=== PATIENT | female | born 1965 | race Caucasian/White ===

== ENCOUNTER 2016-08-09 06:56 | Day surgery (SDC) | payer MEDICARE, MEDICAID ==
[2016-05-09 11:45] VITALS: BMI 25.5
[2016-08-09] MEDS ORDERED: EPINEPHrine 1:1000 Nasal Sol(30mL) ONE (07:44)
[2016-08-09] MEDS ORDERED: cefOXitin IV 1 gm in Dextrose 0 GM/0 ML BAG IVPB ONE (07:45)
[2016-08-09] MEDS ORDERED: Lidocaine 2% w Epi 1:100,000 Inj IJ ONE (07:45)
[2016-08-09] MEDS ORDERED: Acetaminophen-Codeine 300/30 mg Tab PO PRN (08:32)
[2016-08-09] MEDS ORDERED: Dextrose 5%/0.45% NS 1,000 ML IV SCH (08:45)
[2016-08-09] MEDS ORDERED: Midazolam 2 MG/2 ML VIAL ONE (08:45)
[2016-08-09] MEDS ORDERED: Propofol 10 mg/ml Inj (20 ML) ONE (08:45)
[2016-08-09] MEDS ORDERED: Lactated Ringer's 1,000 ML IV ONE (08:55)
[2016-08-09] MEDS ORDERED: ceFAZolin IV 1 gm in Dextrose 1 GM/50 ML BAG IVPB ONE (09:08)
[2016-08-09] MEDS ORDERED: Neostigmine Methylsulfate 3mg/3ml Syringe IV ONE (10:04)
[2016-08-09] MEDS ORDERED: Lidocaine 4% (Laryng-O-Jet) Kit MM ONE (10:08)
--- NOTE | 2016-08-09 10:32 | OP ---
PROCEDURE DATE: 08/09/2016 PREOPERATIVE DIAGNOSIS: Sinusitis. POSTOPERATIVE DIAGNOSIS: Sinusitis. PROCEDURE: Endoscopic right maxillary antrostomy, endoscopic bilateral ethmoidectomy, endoscopic malou ateral sphenoidotomy, endoscopic bilateral frontal sinusotomy. DESCRIPTION OF PROCEDURE: The patient was brought in the room, placed in supine position. Anesthesi a was initiated through an ET tube. Adrenaline-soaked pledgets were inserted in the nasal cavity and remained there for at least 5 minutes and removed. Navigation was set up and used throughout the ca se in order to ensure that the skull base and orbit were not entered. The patient was draped in the usual manner. A 0-degree scope was inserted in the left nasal cavity. The middle turbinate was inje cted with lidocaine with epinephrine and medialized. The uncinate process was medialized and removed using forceps. The debrider was used to enter the ethmoid bulla inferomedially going posteriorly to the basal lamella, then anteriorly and superiorly until the ethmoid bulla was removed. The basal la jimenez was entered. Posterior ethmoid cells were entered and opened. Skull base was identified and f ollowed anteriorly all the way to the area of the anterior ethmoid air cells. The frontal recess was noted to be stenosed and opened using forceps. The left maxillary antrum was noted to be patent. T herefore, it did not need to be opened. The middle turbinate was lateralized. Polyps were noted blo cking the sphenoid antrum, which were removed using a debrider. Next, straight suction hooked up to navigation was used to locate the sphenoid antrum. This was then enlarged using forceps. Next, attention was turned to the other side. The middle turbinate was injected with lidocaine with epinephrine and medialized. The uncinate process was medialized using a Breeding elevator and removed u sing forceps. A debrider was used to enter the ethmoid bulla inferomedially going posteriorly to the basal lamella, then anteriorly and superiorly until the ethmoid bulla was removed. Basal lamella wa s entered. Posterior ethmoid cells were entered and opened. Skull base was identified and followed anteriorly all the way to the area of the anterior ethmoid air cells. Frontal recess was noted to be stenosed and opened using forceps. A curved suction was used to locate the maxillary antrum, which was noted to be blocked with polyps, which were removed using a debrider, and the curve suction hooke d up to navigation was used to locate the maxillary antrum again, and forceps used to make an antrost barbara. The middle turbinate was lateralized, and suction was used to locate the area of the sphenoid a ntrum, which was noted to be blocked with polyps, which were removed using a debrider and forceps. T he antrum was identified using a straight suction hooked up to navigation and opened using forceps. At that point, bleeding was controlled using adrenaline-soaked pledgets and suction cautery. Stents were placed. The patient was taken off anesthesia and taken to recovery room in stable manner. Dylan Galvez MD cc: [id number] TT: 08/09/2016 10:31:51 jn
[2016-08-09] MEDS ORDERED: HYDROmorphone 0.5 mg/0.5 ml ISec IVP PRN (10:39)
[2016-08-09] MEDS ORDERED: Lactated Ringer's 1,000 ML IV SCH (10:45)
[2016-08-09 12:11] VITALS: RESP 19; TEMP 98.3
[2016-08-09 13:48] VITALS: O2SAT 98
[2016-08-09 14:24] VITALS: BP 132/79; PULSE 75
== END 2016-08-09 14:15 | disposition home or self-care (01) ==
LOC: C.SDS 06:56
PROVIDERS: ATTEND Otolaryngology
DX: J32.0 Chronic maxillary sinusitis (principal); J32.2 Chronic ethmoidal sinusitis; J32.3 Chronic sphenoidal sinusitis; J32.9 Chronic sinusitis, unspecified
CPT/HCPCS: 31255; 31267; 31288; 82948; 88304; 88311; J0690; J2250; J2405; J2704; J2710; J3010; J7120

== ENCOUNTER 2016-09-03 17:44 | Inpatient (IN) | payer OTHER, MEDICAID ==
[2016-09-03 17:45] VITALS: BMI 25.5
[2016-09-03] MEDS ORDERED: Sodium Chloride 0.9% 1,000 ML IV ONE (19:55)
[2016-09-03] MEDS ORDERED: Sodium Chloride 0.9% 1,000 ML ONE (20:08)
[2016-09-03 20:09] LABS: BASO # 0.2 K/uL (0.0-0.2); BASO % 1.3 % (0.0-2.0); EOS # 0.3 K/uL (0.0-0.7); EOS % 2.7 % (0.0-4.0); HEMATOCRIT 43.8 % (34.0-47.0); LYMPH # 3.6 K/uL (1.0-4.3); LYMPH % 29.2 % (20.0-40.0); MEAN CELL VOLUME 84.2 fL (81.0-99.0); MEAN CORPUSCULAR HEMOGLOBIN 27.7 pg (27.0-31.0); MEAN CORPUSCULAR HGB CONC 32.9 g/dL (33.0-37.0); MEAN PLATELET VOLUME 9.8 fL (7.2-11.7); MONO # 0.6 K/uL (0.0-0.8); MONO % 4.7 % (0.0-10.0); RED CELL DISTRIBUTION WIDTH 13.1 % (11.5-14.5); WHITE BLOOD COUNT 12.3 K/uL (4.8-10.8)
[2016-09-03 20:21] LABS: CHLORIDE 94 mmol/L (98-107); SODIUM 133 mmol/L (132-148)
[2016-09-03 20:22] LABS: POTASSIUM 3.9 mmol/L (3.6-5.2)
[2016-09-03 20:24] LABS: ALB/GLOB RATIO 1.2 (1.0-2.1); ALKALINE PHOSPHATASE 97 U/L (38-126); AST/SGOT 13 U/L (14-36); BILIRUBIN,TOTAL 0.7 mg/dL (0.2-1.3); BLOOD UREA NITROGEN 17 mg/dL (7-17); CARBON DIOXIDE 26 mmol/L (22-30); GFR AFRICAN-AMERICAN > 60; TOTAL PROTEIN 7.3 g/dL (6.3-8.3)
[2016-09-03 20:25] LABS: ALT/SGPT 21 U/L (9-52); CALCIUM 9.4 mg/dl (8.6-10.4); GLUCOSE,RANDOM 361 mg/dL (65-105)
[2016-09-03] MEDS ORDERED: Piperacillin/Tazobact 3.375 gm 100 ML IVPB STA (21:48)
[2016-09-03] MEDS ORDERED: Piperacillin/Tazobact 3.375 gm 100 ML IVPB ONE (21:55)
[2016-09-03] MEDS ORDERED: Morphine 4 MG/ML VIAL ONE (21:55)
--- NOTE | 2016-09-03 21:59 | C.PDOC ---
History Of Present Illness Pt had surgery on her right foot this month. She states that foot started getting red and painful with pus drainage 2 days ago. Time Seen by Provider: 09/03/16 19:47 Chief Complaint (Nursing): Abnormal Skin Integrity History Per: Patient Onset/Duration Of Symptoms: Days (2) Current Symptoms Are (Timing): Still Present Location Of Injury: Right: Foot Quality Of Symptoms: Painful, Swollen, Draining Severity: Moderate Additional History Per: Prior Records Past Medical History Reviewed: Historical Data, Nursing Documentation, Vital Signs Vital Signs: Last Vital Signs Temp 98.4 F 09/03/16 18:22 Pulse 102 H 09/03/16 18:22 Resp 18 09/03/16 18:22 BP 115/79 09/03/16 18:22 Pulse Ox 100 09/03/16 22:02 - Medical History PMH: Anxiety, Arthritis (right foot 1st digit), Asthma ("MILD INTERMITTENT ASTHMA,UNCOMPLICATED"), Back Problems, Bipolar Disorder, Depression, Diabetes ( Poorly controlled), HTN, Hypercholesterolemia, Schizophrenia, Seizures (last one 07/2015), TIA (05/2012, 02/2015) Surgical History: Appendectomy (34 years ago) - [facility] Procedures INSERT OF MONITOR DEV INTO CHEST SUBCU/FASCIA, PERC APPROACH (02/23/15) Family History: States: Unknown Family Hx - Social History Hx Tobacco Use: Yes (heavy smoker) Hx Alcohol Use: No Hx Substance Use: No - Immunization History Hx Tetanus Toxoid Vaccination: Yes (2014) Hx Influenza Vaccination: Yes (2015) Hx Pneumococcal Vaccination: Yes (2015) Review Of Systems Except As Marked, All Systems Reviewed And Found Negative. Constitutional: Negative for: Fever Cardiovascular: Negative for: Chest Pain Respiratory: Negative for: Shortness of Breath Gastrointestinal: Negative for: Vomiting, Abdominal Pain Musculoskeletal: Positive for: Foot Pain (right). Negative for: Neck Pain, Back Pain Neurological: Negative for: Weakness, Seizures Physical Exam - Physical Exam Appears: Non-toxic, No Acute Distress Skin: Warm, Dry Head: Atraumatic, Normacephalic Eye(s): bilateral: PERRL, EOMI Neck: Normal ROM, Supple Cardiovascular: Rhythm Regular Respiratory: Normal Breath Sounds, No Accessory Muscle Use Gastrointestinal/Abdominal: Soft, No Tenderness Back: No CVA Tenderness Extremity: Normal ROM, Tenderness (right foot), Other (Right foot surgical wound intact, but with surrounding erythema) Pulses: Right Dorsalis Pedis: Normal Neurological/Psych: Oriented x3, Normal Motor, Normal Sensation ED Course And Treatment - Laboratory Results Result Diagrams: 09/03/16 20:07 09/03/16 20:07 Lab Interpretation: Abnormal Interpretation Of Abnormal: Hyperglycemia. Elevated ESR/CRP. O2 Sat by Pulse Oximetry: 100 Pulse Ox Interpretation: Normal - Physician Consult Information Physician Contacted: Chaim Lieberman (Podiatry) Outcome Of Conversation: He wants pt to be admitted and receive Zosyn. Pt was also signed out to Podiatry resident Dr. Young. Disposition Discussed With : Mando Coates Comment: He accepted pt on his service and gave admitting orders to the nurse. Doctor Will See Patient In The: Hospital Counseled Patient/Family Regarding: Studies Performed, Diagnosis - Disposition Disposition: HOSPITALIZED Disposition Time: 22:10 Condition: FAIR - POA Present On Arrival: Poor Glycemic Control - Clinical Impression Clinical Impression: Uncontrolled diabetes mellitus, Status post right foot surgery, Right foot infection
[2016-09-03] MEDS ORDERED: Albuterol-Ipratrop 3 mg / 0.5 (3 ml) UD INH PRN (22:10)
[2016-09-03] MEDS ORDERED: Vancomycin 1 GM 1 GM/250 ML BAG IVPB ONE (22:38)
[2016-09-04] MEDS ORDERED: Oxycodone/Acetaminophen 5/325 mg Tab ONE (00:33)
[2016-09-04] MEDS: Oxycodone/Acetaminophen 5/325 mg Tab PO PRN ×2 (00:34→08:30)
[2016-09-04] MEDS ORDERED: Piperacillin/Tazobact 3.375 gm 100 ML IVPB STA (00:46)
[2016-09-04] MEDS ORDERED: (Novolog) Insulin Aspart, Recombinant 100 u/ml 10 ml vial SC STA (02:51)
[2016-09-04] MEDS: Piperacillin/Tazobact 3.375 GM in Sodium Chloride 100 ML IVPB SCH ×4 (04:16→21:25)
[2016-09-04 06:11] VITALS: RESP 20
[2016-09-04 08:09] LABS: CHLORIDE 103 mmol/L (98-107); POTASSIUM 3.7 mmol/L (3.6-5.2); SODIUM 136 mmol/L (132-148)
[2016-09-04 08:11] LABS: GFR AFRICAN-AMERICAN > 60
[2016-09-04 08:12] LABS: BLOOD UREA NITROGEN 15 mg/dL (7-17); CARBON DIOXIDE 24 mmol/L (22-30); GLUCOSE,RANDOM 349 mg/dL (65-105)
[2016-09-04 08:13] LABS: CALCIUM 8.8 mg/dl (8.6-10.4)
[2016-09-04] MEDS: (Novolog) Insulin Aspart, Recombinant 100 u/ml 10 ml vial SC SCH ×4 (08:32→21:25)
--- NOTE | 2016-09-04 11:51 | CP.PCM.CON ---
History of Present Illness - History of Present Illness History of Present Illness: This 50 year old female patient with PMHx of uncontrolled DM, HTN, and HLD seen at bedside as a podiatry consult. Patient is resting in bed comfortably and is AAOx3 and NAD. Patient is 1 week s/p right 1st met surgery with possible infection. Patient admits to feeling pain at her surgical site and states that she noticed her foot getting red 2 days ago. Patient denies smoking but admits to vaping with her e-cigarette. Patient admits that her blood sugar levels have been running high at approximately 400 mg/dL. Patient denies N/V/F/D/C/SOB. No other pedal complaints at this time. PMHx: Uncontrolled DM, HTN, hypercholesterolemia, schizophrenia, seizures, TIA, anxiety, arthritis, asthma, depression PSH: Appendectomy FH: unknown Social Hx: admits to vaping Allergies: Iodine dye Review of Systems - Review of Systems Review of Systems: Review of systems reviewed and found negative except as listed in HPI Past Patient History - Infectious Disease Hx of Infectious Diseases: None - Past Medical History & Family History Past Medical History?: Yes - Past Social History Smoking Status: Current Some Days Smoker - CARDIAC Hx Cardiac Disorders: Yes Hx Hypercholesterolemia: Yes Hx Hypertension: Yes - PULMONARY Hx Respiratory Disorders: Yes Hx Asthma: Yes ("MILD INTERMITTENT ASTHMA,UNCOMPLICATED") - NEUROLOGICAL Hx Neurological Disorder: Yes Hx Seizures: Yes (last one 07/2015) Hx Transient Ischemic Attacks (TIA): Yes (05/2012, 02/2015) - HEENT Hx HEENT Problems: No Other/Comment: HX: "INFECTIVE OITIS EXTERNAL, LEFT EAR". HX: "SINUS SURGERY" - RENAL Hx Chronic Kidney Disease: No - ENDOCRINE/METABOLIC Hx Endocrine Disorders: Yes Hx Diabetes Mellitus Type 2: Yes - HEMATOLOGICAL/ONCOLOGICAL Hx Blood Disorders: Yes Hx Blood Transfusions: Yes (1993) Hx Blood Transfusion Reaction: Yes (Reaction with Fever,Vomiting.) - INTEGUMENTARY Hx Dermatological Problems: Yes Other/Comment: HX: LEFT BREAT CYST - MUSCULOSKELETAL/RHEUMATOLOGICAL Hx Musculoskeletal Disorders: Yes Hx Arthritis: Yes (right foot 1st digit) Hx Falls: No - GASTROINTESTINAL Hx Gastrointestinal Disorders: Yes Hx Gastroesophageal Reflux: Yes - GENITOURINARY/GYNECOLOGICAL Hx Genitourinary Disorders: No - PSYCHIATRIC Hx Psychophysiologic Disorder: Yes Hx Anxiety: Yes Hx Bipolar Disorder: Yes Hx Depression: Yes Hx Schizophrenia: Yes Hx Substance Use: No - SURGICAL HISTORY Hx Surgeries: Yes Hx Appendectomy: Yes (34 years ago) Other/Comment: bilateral foot surgery 07/27 - ANESTHESIA Hx Anesthesia: Yes Hx Anesthesia Reactions: No Hx Malignant Hyperthermia: No Has any member of the family had a problem w/ anesthesia?: No Meds Allergies/Adverse Reactions: Allergies Allergy/AdvReac Type Severity Reaction Status Date / Time iodine dye Allergy RASH Uncoded 12/02/15 11:06 - Medications Medications: Current Medications Albuterol/Ipratropium (Duoneb 3 Mg/0.5 Mg (3 Ml) Ud) 3 ml INH RQ6 PRN PRN Reason: Shortness of Breath Alprazolam (Xanax) 1 mg PO BID [facility] Last Admin: 09/04/16 10:23 Dose: 1 mg Aspirin (Ecotrin) 81 mg PO DAILY [facility] Last Admin: 09/04/16 10:21 Dose: 81 mg Vancomycin HCl 1,000 mg/ (Sodium Chloride) 250 mls @ 166.6 mls/hr IVPB Q12H [facility] Last Admin: 09/04/16 10:23 Dose: 166.6 mls/hr Piperacillin Sod/Tazobactam (Sod 3.375 gm/ Sodium Chloride) 100 mls @ 200 mls/ hr IVPB Q6H [facility] Last Admin: 09/04/16 10:23 Dose: 200 mls/hr Insulin Aspart (Novolog) 0 unit SC ACHS [facility] PRN Reason: Protocol Last Admin: 09/04/16 08:32 Dose: 4 unit Lamotrigine (Lamictal) 200 mg PO BID [facility] Last Admin: 09/04/16 10:22 Dose: 200 mg Losartan Potassium (Cozaar) 50 mg PO DAILY [facility] Last Admin: 09/04/16 10:22 Dose: 50 mg Metformin HCl (Glucophage) 1,000 mg PO BID [facility] Last Admin: 09/04/16 10:49 Dose: 1,000 mg Mirtazapine (Remeron) 30 mg PO HS [facility] Oxycodone/Acetaminophen (Percocet 5/325 Mg Tab) 1 tab PO Q4H PRN PRN Reason: Pain, moderate (4-7) Stop: 09/06/16 22:11 Last Admin: 09/04/16 08:30 Dose: 1 tab Rosuvastatin Calcium (Crestor) 5 mg PO HS [facility] Last Admin: 09/03/16 22:41 Dose: 5 mg Zolpidem Tartrate (Ambien) 5 mg PO HS [facility] Physical Exam - Constitutional Appears: Well, Non-toxic, No Acute Distress - Extremities Exam Additional comments: Vasc: DP and PT pulses palpable 2/4. Skin temperature warm to warm from proximal to distal b/l. CFT <3 seconds x10. No increased warmth noted to surgical site. Mild erythema noted around surgical sites. Neuro: Light touch sensation intact. Derm: Incisions noted to 1) dorsum of right hallux, 2) dorsum of right 1st metatarsal, and 3) dorsum of left hallux appear well-coapted with no wound dehiscence noted. No drainage, no purulence, no malodor noted. All sutures appear to be intact. Ortho: Pain on palpation noted to incision sites x3. - Neurological Exam Neurological exam: Alert, Oriented x3 - Psychiatric Exam Psychiatric exam: Normal Affect, Normal Mood Results - Vital Signs Recent Vital Signs: Last Vital Signs Temp 98.3 F 09/04/16 07:32 Pulse 72 09/04/16 07:32 Resp 20 09/04/16 07:32 BP 105/65 09/04/16 07:32 Pulse Ox 97 09/04/16 07:32 - Labs Result Diagrams: 09/03/16 20:07 09/04/16 07:39 Labs: Laboratory Results - last 24 hr 09/04/16 09/04/16 09/04/16 02:40 07:05 07:39 ESR 29 H Sodium Potassium Chloride Carbon Dioxide Anion Gap BUN Creatinine Est GFR ( Amer) Est GFR (Non-Af Amer) POC Glucose (mg/dL) 481 H* 349 H Random Glucose Calcium 09/04/16 07:39 ESR Sodium 136 Potassium 3.7 Chloride 103 Carbon Dioxide 24 Anion Gap 12 BUN 15 Creatinine 0.5 L Est GFR ( Amer) > 60 Est GFR (Non-Af Amer) > 60 POC Glucose (mg/dL) Random Glucose 349 H Calcium 8.8 Assessment & Plan - Assessment and Plan (Free Text) Assessment: 50 year old female patient 1 week s/p right foot surgery and b/l hallux nail avulsions Plan: Patient seen and evaluated at bedside. Charts, labs, vitals reviewed = afebrile, increased WBC yesterday @12.3, ESR = 40 yesterday but is now 29 today Discussed with attending, Dr. Lieberman. Right foot dressed with xeroform, 4x4 gauze, and noncompressive kerlix. Patient is to be NWB on RLE and advised to elevate leg. Left hallux dressed with Telfa, 4x4s, and kerlix. Awaiting R foot X-ray report. Serum nicotine results pending. Podiatry will continue to follow while in-house.
--- NOTE | 2016-09-04 12:04 | RAD ---
PROCEDURE: Left Foot Radiographs. HISTORY: left foot infection COMPARISON: None. FINDINGS: BONES: Normal. No fracture. JOINTS: Normal. SOFT TISSUES: Normal. OTHER FINDINGS: None. IMPRESSION: Normal left foot radiographs.
--- NOTE | 2016-09-04 14:56 | RAD ---
PROCEDURE: Right Foot Radiographs. HISTORY: Right foot infection COMPARISON: None. FINDINGS: BONES: No fracture. There is an exostosis at the medial base of the 1st distal phalanx. Consistent with subungual exostosis. There is no osseous erosion or periosteal reaction appreciated throughout the foot. JOINTS: Normal. SOFT TISSUES: Normal. OTHER FINDINGS: None. IMPRESSION: Subungual exostosis of 1st distal phalanx. Otherwise unremarkable.
--- NOTE | 2016-09-04 16:09 | CP.PCM.CON ---
History of Present Illness - History of Present Illness History of Present Illness: Pt had surgery on her right foot this month. She states that foot started getting red and painful with pus drainage 2 days ago. 50 year old female patient with PMHx of uncontrolled DM, HTN, and HLD seen at bedside as a podiatry consult. Patient is resting in bed comfortably and is AAOx3 and NAD. Patient is 1 week s/p right 1st met surgery with possible infection. Patient admits to feeling pain at her surgical site and states that she noticed her foot getting red 2 days ago. Patient denies smoking but admits to vaping with her e-cigarette. Patient admits that her blood sugar levels have been running high at approximately 400 mg/dL. Patient denies N/V/F/D/C/SOB. No other pedal complaints at this time. PMHx: Uncontrolled DM, HTN, hypercholesterolemia, schizophrenia, seizures, TIA, anxiety, arthritis, asthma, depression PSH: Appendectomy FH: unknown Social Hx: admits to vaping Allergies: Iodine dye - Medical History PMH: Anxiety, Arthritis (right foot 1st digit), Asthma ("MILD INTERMITTENT ASTHMA,UNCOMPLICATED"), Back Problems, Bipolar Disorder, Depression, Diabetes ( Poorly controlled), HTN, Hypercholesterolemia, Schizophrenia, Seizures (last one 07/2015), TIA (05/2012, 02/2015) Surgical History: Appendectomy (34 years ago) Review of Systems - Constitutional Constitutional: As Per HPI, Chills, Fever, Malaise - EENT Eyes: absent: As Per HPI, Blind Spots, Blurred Vision, Change in Vision, Decreased Night Vision, Diplopia, Discharge, Dry Eye, Exophthalmos, Floaters, Irritation, Itchy Eyes, Loss of Peripheral Vision, Pain, Photophobia, Requires Corrective Lenses, Sees Flashes, Spots in Vision, Tunnel Vision, Other Visual Disturbances, Loss of Vision, Other Ears: absent: As Per HPI, Decreased Hearing, Ear Discharge, Ear Pain, Tinnitus, Abnormal Hearing, Disequilibrium, Dizziness, Other Nose/Mouth/Throat: absent: As Per HPI, Epistaxis, Nasal Congestion, Nasal Discharge, Nasal Obstruction, Nasal Trauma, Nose Pain, Post Nasal Drip, Sinus Pain, Sinus Pressure, Bleeding Gums, Change in Voice, Dental Pain, Dry Mouth, Dysphagia, Halitosis, Hoarsness, Lip Swelling, Mouth Lesions, Mouth Pain, Odynophagia, Sore Throat, Throat Swelling, Tongue Swelling, Facial Pain, Neck Pain, Neck Mass, Other - Breasts Breasts: absent: As Per HPI, Change in Shape, Mass, Pain, Nipple Discharge, Nipple Inversion, Skin Changes, Swelling, Other - Cardiovascular Cardiovascular: absent: As Per HPI, Acrocyanosis, Chest Pain, Chest Pain at Rest , Chest Pain with Activity, Claudication, Diaphoresis, Dyspnea, Dyspnea on Exertion, Edema, Irregular Heart Rhythm, Pain Radiating to Arm/Neck/Jaw, Leg Edema, Leg Ulcers, Lightheadedness, Orthopnea, Palpitations, Paroxysmal Nocturnal Dyspnea, Pedal Edema, Radiating Pain, Rapid Heart Rate, Slow Heart Rate, Syncope, Other - Respiratory Respiratory: absent: As Per HPI, Cough, Dyspnea, Hemoptysis, Dyspnea on Exertion , Wheezing, Snoring, Stridor, Pain on Inspiration, Chest Congestion, Excessive Mucous Production, Change in Mucous Color, Pain with Coughing, Other - Gastrointestinal Gastrointestinal: absent: As Per HPI, Abdominal Pain, Belching, Bloating, Change in Bowel Habits, Change in Stool Character, Coffee Ground Emesis, Constipation, Cramping, Diarrhea, Dyspepsia, Dysphagia, Early Satiety, Excessive Flatus, Fecal Incontinence, Heartburn, Hematemesis, Hematochezia, Loose Stools, Melena, Nausea, Odynophagia, Temesmus, Vomiting, Other - Genitourinary Genitourinary: absent: As Per HPI, Change in Urinary Stream, Difficulty Urinating, Dysuria, Flank Pain, Hematuria, Pyuria, Nocturia, Urinary Incontinence, Urinary Frequency, Urinary Hesitance, Urinary Urgency, Voiding Freq/Small Amts, Freq UTI, Hx Renal/Bladder Calculi, Hx /Renal Surgery, Bladder Distension, Other - Reproductive: Female Reproductive:Female: absent: As Per HPI, Amenorrhea, Amenorrhea/ Control, Currently Menstual, Cycle <21 Days, Cycle >35 Days, Cycle Variable, Menses 1-7 Days, Menses >/= 8 Days, Menses Variable, Cycle > 4 Weeks Between, No Menses for 6 Months, Heavy Menses, Light Menses, Normal Menses, Spotting Between Cycles , S/P Hysterectomy, Menopausal, Post Menopausal, Premenarche, Abnormal Vaginal Bleeding, Dysmenorrhea, Dyspareunia, Genital Lesions, Genital Pruritis, Pelvic Pain, Prolapse Symptoms, Sexual Dysfunction, Vaginal Discharge, Vaginal Dryness , Vaginal Odor, Vaginal Pruritis, Other - Menstruation Menstruation: absent: As Per HPI, Amenorrhea, Amenorrhea/ Control, Currently Menstual, Cycle <21 Days, Cycle >35 Days, Cycle Variable, Menses 1-7 Days, Menses >/= 8 Days, Menses Variable, Cycle > 4 Weeks Between, No Menses for 6 Months, Heavy Menses, Light Menses, Normal Menses, Spotting Between Cycles , S/P Hysterectomy, Menopausal, Post Menopausal, Premenarche, Abnormal Vaginal Bleeding, Dysmenorrhea, Other - Musculoskeletal Musculoskeletal: As Per HPI - Integumentary Integumentary: As Per HPI, Skin Pain, Wounds - Neurological Neurological: absent: As Per HPI, Abnormal Gait, Abnormal Hearing, Abnormal Movements, Abnormal Speech, Behavioral Changes, Burning Sensations, Confusion, Convulsions, Disequilibrium, Dizziness, Numbness, Focal Weakness, Frequent Falls , Headaches, Lack of Coordination, Loss of Vision, Memory Loss, Paresthesias, Radicular Pain, Restless Legs, Sensory Deficit, Syncope, Tingling, Tremor, Vertigo, Weakness, Other Visual Disturbances, Other - Psychiatric Psychiatric: absent: As Per HPI, Abnormal Sleep Pattern, Anhedonia, Anxiety, Auditory Hallucinations, Behavioral Changes, Change in Appetite, Change in Libido, Confusion, Depression, Difficulty Concentrating, Hallucinations, Homicidal Ideation, Hopelessness, Irritability, Memory Loss, Mood Swings, Panic Attacks, Paranoia, Suicidal Ideation, Visual Hallucinations, Tactile Hallucinations, Other - Endocrine Endocrine: absent: As Per HPI, Change in Body Appearance, Change in Libido, Cold Intolorance, Deepening of Voice, Excessive Sweating, Fatigue, Flushing, Heat Intolorance, Increase in Ring/Shoe/Hat Size, Palpitations, Polydipsia, Polyphagia, Polyuria, Other - Hematologic/Lymphatic Hematologic: absent: As Per HPI, Easy Bleeding, Easy Bruising, Lymphadenopathy, Other Past Patient History - Infectious Disease Hx of Infectious Diseases: None - Past Medical History & Family History Past Medical History?: Yes - Past Social History Smoking Status: Current Some Days Smoker - CARDIAC Hx Cardiac Disorders: Yes Hx Hypercholesterolemia: Yes Hx Hypertension: Yes - PULMONARY Hx Respiratory Disorders: Yes Hx Asthma: Yes ("MILD INTERMITTENT ASTHMA,UNCOMPLICATED") - NEUROLOGICAL Hx Neurological Disorder: Yes Hx Seizures: Yes (last one 07/2015) Hx Transient Ischemic Attacks (TIA): Yes (05/2012, 02/2015) - HEENT Hx HEENT Problems: No Other/Comment: HX: "INFECTIVE OITIS EXTERNAL, LEFT EAR". HX: "SINUS SURGERY" - RENAL Hx Chronic Kidney Disease: No - ENDOCRINE/METABOLIC Hx Endocrine Disorders: Yes Hx Diabetes Mellitus Type 2: Yes - HEMATOLOGICAL/ONCOLOGICAL Hx Blood Disorders: Yes Hx Blood Transfusions: Yes (1993) Hx Blood Transfusion Reaction: Yes (Reaction with Fever,Vomiting.) - INTEGUMENTARY Hx Dermatological Problems: Yes Other/Comment: HX: LEFT BREAT CYST - MUSCULOSKELETAL/RHEUMATOLOGICAL Hx Musculoskeletal Disorders: Yes Hx Arthritis: Yes (right foot 1st digit) Hx Falls: No - GASTROINTESTINAL Hx Gastrointestinal Disorders: Yes Hx Gastroesophageal Reflux: Yes - GENITOURINARY/GYNECOLOGICAL Hx Genitourinary Disorders: No - PSYCHIATRIC Hx Psychophysiologic Disorder: Yes Hx Anxiety: Yes Hx Bipolar Disorder: Yes Hx Depression: Yes Hx Schizophrenia: Yes Hx Substance Use: No - SURGICAL HISTORY Hx Surgeries: Yes Hx Appendectomy: Yes (34 years ago) Other/Comment: bilateral foot surgery 07/27 - ANESTHESIA Hx Anesthesia: Yes Hx Anesthesia Reactions: No Hx Malignant Hyperthermia: No Has any member of the family had a problem w/ anesthesia?: No Meds Allergies/Adverse Reactions: Allergies Allergy/AdvReac Type Severity Reaction Status Date / Time iodine dye Allergy RASH Uncoded 12/02/15 11:06 - Medications Medications: Current Medications Albuterol/Ipratropium (Duoneb 3 Mg/0.5 Mg (3 Ml) Ud) 3 ml INH RQ6 PRN PRN Reason: Shortness of Breath Alprazolam (Xanax) 1 mg PO BID [facility] Last Admin: 09/04/16 10:23 Dose: 1 mg Aspirin (Ecotrin) 81 mg PO DAILY [facility] Last Admin: 09/04/16 10:21 Dose: 81 mg Vancomycin HCl 1,000 mg/ (Sodium Chloride) 250 mls @ 166.6 mls/hr IVPB Q12H [facility] Last Admin: 09/04/16 10:23 Dose: 166.6 mls/hr Piperacillin Sod/Tazobactam (Sod 3.375 gm/ Sodium Chloride) 100 mls @ 200 mls/ hr IVPB Q6H [facility] Last Admin: 09/04/16 10:23 Dose: 200 mls/hr Insulin Aspart (Novolog) 0 unit SC ACHS [facility] PRN Reason: Protocol Last Admin: 09/04/16 12:07 Dose: 6 unit Lamotrigine (Lamictal) 200 mg PO BID [facility] Last Admin: 09/04/16 10:22 Dose: 200 mg Losartan Potassium (Cozaar) 50 mg PO DAILY [facility] Last Admin: 09/04/16 10:22 Dose: 50 mg Metformin HCl (Glucophage) 1,000 mg PO BID [facility] Last Admin: 09/04/16 10:49 Dose: 1,000 mg Mirtazapine (Remeron) 30 mg PO [facility] Oxycodone/Acetaminophen (Percocet 5/325 Mg Tab) 1 tab PO Q4H PRN PRN Reason: Pain, moderate (4-7) Stop: 09/06/16 22:11 Last Admin: 09/04/16 08:30 Dose: 1 tab Rosuvastatin Calcium (Crestor) 5 mg PO [facility] Last Admin: 09/03/16 22:41 Dose: 5 mg Zolpidem Tartrate (Ambien) 5 mg PO [facility] Physical Exam - Constitutional Appears: Non-toxic, Chronically Ill - Head Exam Head Exam: ATRAUMATIC, NORMAL INSPECTION, NORMOCEPHALIC - Eye Exam Eye Exam: PERRL. absent: Scleral icterus - ENT Exam ENT Exam: Mucous Membranes Dry, Normal External Ear Exam - Neck Exam Neck exam: Negative for: Lymphadenopathy - Respiratory Exam Respiratory Exam: Decreased Breath Sounds, Clear to Auscultation Bilateral - Cardiovascular Exam Cardiovascular Exam: REGULAR RHYTHM, +S1, +S2 - GI/Abdominal Exam GI & Abdominal Exam: Diminished Bowel Sounds, Soft. absent: Tenderness - Rectal Exam Rectal Exam: Deferred - Exam Exam: NORMAL INSPECTION - Extremities Exam Extremities exam: Positive for: pedal edema, tenderness. Negative for: calf tenderness Additional comments: Vasc: DP and PT pulses palpable 2/4. Skin temperature warm to warm from proximal to distal b/l. CFT <3 seconds x10. No increased warmth noted to surgical site. Mild erythema noted around surgical sites. Neuro: Light touch sensation intact. Derm: Incisions noted to 1) dorsum of right hallux, 2) dorsum of right 1st metatarsal, and 3) dorsum of left hallux appear well-coapted with no wound dehiscence noted. No drainage, no purulence, no malodor noted. All sutures appear to be intact. Ortho: Pain on palpation noted to incision sites x3. - Back Exam Back exam: absent: CVA tenderness (L), CVA tenderness (R) - Neurological Exam Neurological exam: Alert, CN II-XII Intact, Oriented x3, Reflexes Normal - Psychiatric Exam Psychiatric exam: Normal Mood - Skin Skin Exam: Dry, Intact Results - Vital Signs Recent Vital Signs: Last Vital Signs Temp 97.6 F 09/04/16 15:00 Pulse 88 09/04/16 15:00 Resp 20 09/04/16 15:00 BP 95/63 L 09/04/16 15:00 Pulse Ox 97 09/04/16 15:00 - Labs Result Diagrams: 09/03/16 20:07 09/04/16 07:39 Labs: Laboratory Results - last 24 hr 09/04/16 09/04/16 09/04/16 02:40 07:05 07:39 ESR 29 H Sodium Potassium Chloride Carbon Dioxide Anion Gap BUN Creatinine Est GFR ( Amer) Est GFR (Non-Af Amer) POC Glucose (mg/dL) 481 H* 349 H Random Glucose Calcium 09/04/16 09/04/16 07:39 11:12 ESR Sodium 136 Potassium 3.7 Chloride 103 Carbon Dioxide 24 Anion Gap 12 BUN 15 Creatinine 0.5 L Est GFR ( Amer) > 60 Est GFR (Non-Af Amer) > 60 POC Glucose (mg/dL) 426 H* Random Glucose 349 H Calcium 8.8 Assessment & Plan (1) Right foot infection Status: Acute (2) Status post right foot surgery Status: Acute (3) Uncontrolled diabetes mellitus Status: Acute (4) COPD (chronic obstructive pulmonary disease) Status: Acute Priority: Medium (5) Diabetes Status: Acute (6) HTN (hypertension) Status: Acute (7) Sensory deficit, left Status: Acute (8) Uncontrolled diabetes mellitus Status: Acute - Assessment and Plan (Free Text) Assessment: AWAIT CULTURES CONT IV ANTIBIOTICS
[2016-09-05] MEDS: Piperacillin/Tazobact 3.375 GM in Sodium Chloride 100 ML IVPB SCH ×4 (04:15→21:00)
[2016-09-05 06:31] LABS: BASO # 0.1 K/uL (0.0-0.2); BASO % 0.9 % (0.0-2.0); EOS # 0.5 K/uL (0.0-0.7); EOS % 4.7 % (0.0-4.0); HEMATOCRIT 40.1 % (34.0-47.0); LYMPH # 3.3 K/uL (1.0-4.3); LYMPH % 29.2 % (20.0-40.0); MEAN CELL VOLUME 85.5 fL (81.0-99.0); MEAN CORPUSCULAR HEMOGLOBIN 27.7 pg (27.0-31.0); MEAN CORPUSCULAR HGB CONC 32.5 g/dL (33.0-37.0); MEAN PLATELET VOLUME 9.8 fL (7.2-11.7); MONO # 0.7 K/uL (0.0-0.8); RED CELL DISTRIBUTION WIDTH 12.9 % (11.5-14.5); WHITE BLOOD COUNT 11.4 K/uL (4.8-10.8)
[2016-09-05] MEDS: (Novolog) Insulin Aspart, Recombinant 100 u/ml 10 ml vial SC SCH ×3 (07:30→21:37)
[2016-09-05] MEDS ORDERED: (Novolog) Insulin Aspart, Recombinant 100 u/ml 10 ml vial SC SCH (09:15)
--- NOTE | 2016-09-05 09:16 | CP.PCM.PN ---
Subjective - Date & Time of Evaluation Date of Evaluation: 09/05/16 Time of Evaluation: 07:00 - Subjective Subjective: This 50 year old female patient with PMHx of uncontrolled DM, HTN, and HLD seen at bedside. Patient is 1 week s/p right 1st met surgery with possible infection. Patient admits to feeling pain at her surgical site and states that she noticed her foot getting red 3 days ago. Patient denies smoking but admits to vaping with her e-cigarette. Patient admits that her blood sugar levels have been running high at approximately 400 mg/dL. She was on an insulin pump, however it recently malfunctioned and she is awaiting a replacement. Patient is resting in bed comfortably and is AAOx3 and NAD. Patient denies f/c, chest pain , SOB, n/v, d/c, dysuria, or any additional complaints. PMHx: Uncontrolled DM, HTN, hypercholesterolemia, schizophrenia, seizures, TIA, anxiety, arthritis, asthma, depression PSH: Appendectomy MEDs: see EMR FH: unknown Social Hx: admits to vaping Allergies: Iodine dye Objective - Vital Signs/Intake and Output Vital Signs (last 24 hours): Temp Pulse Resp BP Pulse Ox 98.5 F 89 20 100/63 98 09/05/16 00:00 09/05/16 00:00 09/05/16 00:00 09/05/16 00:00 09/05/16 00:00 Intake and Output: 09/05/16 09/05/16 06:59 18:59 Intake Total 400 Balance 400 - Medications Medications: Current Medications Albuterol/Ipratropium (Duoneb 3 Mg/0.5 Mg (3 Ml) Ud) 3 ml INH RQ6 PRN PRN Reason: Shortness of Breath Alprazolam (Xanax) 1 mg PO BID [facility] Last Admin: 09/04/16 17:26 Dose: 1 mg Aspirin (Ecotrin) 81 mg PO DAILY [facility] Last Admin: 09/04/16 10:21 Dose: 81 mg Enoxaparin Sodium (Lovenox) 40 mg SC DAILY [facility] Vancomycin HCl 1,000 mg/ (Sodium Chloride) 250 mls @ 166.6 mls/hr IVPB Q12H [facility] Last Admin: 09/04/16 21:55 Dose: 166.6 mls/hr Piperacillin Sod/Tazobactam (Sod 3.375 gm/ Sodium Chloride) 100 mls @ 200 mls/ hr IVPB Q6H [facility] Last Admin: 09/05/16 04:15 Dose: 200 mls/hr Insulin Aspart (Novolog) 0 unit SC ACHS [facility] PRN Reason: Protocol Lamotrigine (Lamictal) 200 mg PO BID [facility] Last Admin: 09/04/16 17:26 Dose: 200 mg Losartan Potassium (Cozaar) 50 mg PO DAILY [facility] Last Admin: 09/04/16 10:22 Dose: 50 mg Metformin HCl (Glucophage) 1,000 mg PO BID [facility] Last Admin: 09/04/16 17:25 Dose: 1,000 mg Mirtazapine (Remeron) 30 mg PO [facility] Last Admin: 09/04/16 21:26 Dose: 30 mg Oxycodone/Acetaminophen (Percocet 5/325 Mg Tab) 1 tab PO Q4H PRN PRN Reason: Pain, moderate (4-7) Stop: 09/06/16 22:11 Last Admin: 09/04/16 08:30 Dose: 1 tab Rosuvastatin Calcium (Crestor) 5 mg PO [facility] Last Admin: 09/04/16 21:26 Dose: 5 mg Zolpidem Tartrate (Ambien) 5 mg PO [facility] Last Admin: 09/04/16 21:56 Dose: Not Given - Labs Labs: 09/05/16 06:18 09/04/16 07:39 - Additional Findings Additional findings: - Constitutional Appears: Non-toxic, Chronically Ill - Head Exam Head Exam: ATRAUMATIC, NORMAL INSPECTION, NORMOCEPHALIC - Eye Exam Eye Exam: PERRL. absent: Scleral icterus - ENT Exam ENT Exam: Mucous Membranes Dry, Normal External Ear Exam - Neck Exam Neck exam: Negative for: Lymphadenopathy - Respiratory Exam Respiratory Exam: Decreased Breath Sounds, Clear to Auscultation Bilateral - Cardiovascular Exam Cardiovascular Exam: REGULAR RHYTHM, +S1, +S2 - GI/Abdominal Exam GI & Abdominal Exam: Diminished Bowel Sounds, Soft. absent: Tenderness - Exam Exam: NORMAL INSPECTION - Extremities Exam Extremities exam: Positive for: pedal edema, tenderness. Negative for: calf tenderness - Neurological Exam Neurological Exam: Alert, Awake, Oriented x3 Assessment and Plan - Assessment and Plan (Free Text) Assessment: Right foot infection Status: Acute Podiatry Consult, Dr. Lieberman, help appreciated. ID Consulted, Dr. Wallace, help appreciated Vancomycin HCl 1,000 mg/ (Sodium Chloride) 250 mls @ 166.6 mls/hr IVPB Q12H [facility] Piperacillin Sod/Tazobactam (Sod 3.375 gm/ Sodium Chloride) 100 mls @ 200 mls/ hr IVPB Q6H [facility] Status post right foot surgery Status: Acute Podiatry Consult, Dr. Lieberman, help appreciated. Oxycodone/Acetaminophen (Percocet 5/325 Mg Tab) 1 tab PO Q4H PRN, moderate pain Uncontrolled diabetes mellitus Status: Acute 09/05: Glucose 349. Continue metformin 1000mg PO BID. Increase to ISS High dose. Increase to Levemir 45mg SC [facility]. Consider further increasing Levemir to 45mg SC TID if blood glucose does not improve tomorrow. COPD (chronic obstructive pulmonary disease) Status: Acute Priority: Medium Albuterol/Ipratropium (Duoneb 3 Mg/0.5 Mg (3 Ml) Ud) 3 ml INH RQ6 PRN HTN (hypertension) Status: Acute Aspirin (Ecotrin) 81 mg PO DAILY [facility] Losartan Potassium (Cozaar) 50 mg PO DAILY [facility] Rosuvastatin Calcium (Crestor) 5 mg PO HS [facility] Insomnia Zolpidem Tartrate (Ambien) 5 mg PO HS [facility] Bipolar Disorder Psych consulted, Dr. Nunes, help appreciated Lamotrigine (Lamictal) 200 mg PO BID [facility] Mirtazapine (Remeron) 30 mg PO HS [facility] Prophylaxis Xanax 1mg PO BID PRN Enoxaparin Sodium (Lovenox) 40 mg SC DAILY [facility]
[2016-09-05] MEDS: Enoxaparin 40 mg Syringe SC SCH (09:25)
--- NOTE | 2016-09-05 11:08 | CP.PCM.PN ---
Subjective - Date & Time of Evaluation Date of Evaluation: 09/05/16 Time of Evaluation: 07:00 - Subjective Subjective: blood cultures neg thus far Objective - Vital Signs/Intake and Output Vital Signs (last 24 hours): Temp Pulse Resp BP Pulse Ox 98.5 F 89 20 100/63 98 09/05/16 00:00 09/05/16 00:00 09/05/16 00:00 09/05/16 00:00 09/05/16 00:00 Intake and Output: 09/05/16 09/05/16 06:59 18:59 Intake Total 400 Balance 400 - Medications Medications: Current Medications Albuterol/Ipratropium (Duoneb 3 Mg/0.5 Mg (3 Ml) Ud) 3 ml INH RQ6 PRN PRN Reason: Shortness of Breath Alprazolam (Xanax) 1 mg PO BID PRN PRN Reason: Anxiety Aspirin (Ecotrin) 81 mg PO DAILY [facility] Last Admin: 09/05/16 09:28 Dose: 81 mg Enoxaparin Sodium (Lovenox) 40 mg SC DAILY [facility] Last Admin: 09/05/16 09:25 Dose: 40 mg Vancomycin HCl 1,000 mg/ (Sodium Chloride) 250 mls @ 166.6 mls/hr IVPB Q12H [facility] Last Admin: 09/04/16 21:55 Dose: 166.6 mls/hr Piperacillin Sod/Tazobactam (Sod 3.375 gm/ Sodium Chloride) 100 mls @ 200 mls/ hr IVPB Q6H [facility] Last Admin: 09/05/16 09:25 Dose: 200 mls/hr Insulin Aspart (Novolog) 0 unit SC [facility] PRN Reason: Protocol Insulin Detemir (Levemir) 45 unit SC [facility] Lamotrigine (Lamictal) 200 mg PO BID [facility] Last Admin: 09/05/16 09:27 Dose: 200 mg Losartan Potassium (Cozaar) 50 mg PO DAILY [facility] Last Admin: 09/05/16 09:38 Dose: 50 mg Metformin HCl (Glucophage) 1,000 mg PO BID [facility] Last Admin: 09/05/16 09:28 Dose: 1,000 mg Mirtazapine (Remeron) 30 mg PO HS [facility] Last Admin: 09/04/16 21:26 Dose: 30 mg Oxycodone/Acetaminophen (Percocet 5/325 Mg Tab) 1 tab PO Q4H PRN PRN Reason: Pain, moderate (4-7) Stop: 09/06/16 22:11 Last Admin: 09/04/16 08:30 Dose: 1 tab Rosuvastatin Calcium (Crestor) 5 mg PO [facility] Last Admin: 09/04/16 21:26 Dose: 5 mg Zolpidem Tartrate (Ambien) 5 mg PO [facility] Last Admin: 09/04/16 21:56 Dose: Not Given - Labs Labs: 09/05/16 06:18 09/04/16 07:39 - Constitutional Appears: Non-toxic - Head Exam Head Exam: NORMOCEPHALIC - Eye Exam Eye Exam: PERRL. absent: Scleral icterus - ENT Exam ENT Exam: Mucous Membranes Dry - Neck Exam Neck Exam: absent: Lymphadenopathy - Respiratory Exam Respiratory Exam: Decreased Breath Sounds, Rhonchi - Cardiovascular Exam Cardiovascular Exam: REGULAR RHYTHM, +S1, +S2 - GI/Abdominal Exam GI & Abdominal Exam: Distended, Soft. absent: Tenderness - Back Exam Back Exam: absent: CVA tenderness (L), CVA tenderness (R) - Neurological Exam Neurological Exam: Alert, Awake, Oriented x3 Assessment and Plan (1) Right foot infection Status: Acute (2) Status post right foot surgery Status: Acute (3) Uncontrolled diabetes mellitus Status: Acute (4) COPD (chronic obstructive pulmonary disease) Status: Acute (5) Diabetes Status: Acute (6) HTN (hypertension) Status: Acute (7) Sensory deficit, left Status: Acute (8) Uncontrolled diabetes mellitus Status: Acute
[2016-09-05] MEDS: Oxycodone/Acetaminophen 5/325 mg Tab PO PRN (12:44)
--- NOTE | 2016-09-05 13:20 | HP ---
A 50-year-old female in the hospital with chief complaint of pain in the foot. The patient underwent surgery by Dr. Kunz for diabetic foot ulcer. The patient had increasing pain, came, advised admission. She has poorly controlled diabetes, is extremely noncompliant, history of chronic pain, a nxiety. The patient is a smoker. PHYSICAL EXAMINATION: GENERAL: The patient is awake, alert, oriented to time and place. VITAL SIGNS: Temperature 99, pulse 90. HEENT: Within normal limits. NECK: Supple. CHEST: Symmetrical. HEART: Regular. ABDOMEN: Soft. EXTREMITIES: Foot ulcer present. IMPRESSION: The patient suffers from diabetes mellitus, diabetic foot. The patient will get IV anti biotics, supportive care, podiatry and ID consult. Mando Dupree MD cc: [id number] TT: 09/05/2016 11:48:45 en
--- NOTE | 2016-09-05 15:43 | CP.PCM.PN ---
Subjective - Date & Time of Evaluation Date of Evaluation: 09/05/16 Time of Evaluation: 10:15 - Subjective Subjective: Patient seen bedside regarding right foot surgical site infection. She is seen resting in bed in [facility]. Still admits pain to right foot today, but states overall improvement since admission. Denies F/N/V, but admits to intermittent chills. Objective - Vital Signs/Intake and Output Vital Signs (last 24 hours): Temp Pulse Resp BP Pulse Ox 98.5 F 89 20 100/63 98 09/05/16 00:00 09/05/16 00:00 09/05/16 00:00 09/05/16 00:00 09/05/16 00:00 Intake and Output: 09/05/16 09/05/16 06:59 18:59 Intake Total 400 750 Balance 400 750 - Medications Medications: Current Medications Albuterol/Ipratropium (Duoneb 3 Mg/0.5 Mg (3 Ml) Ud) 3 ml INH RQ6 PRN PRN Reason: Shortness of Breath Alprazolam (Xanax) 2 mg PO Q12 [facility] Aspirin (Ecotrin) 81 mg PO DAILY [facility] Last Admin: 09/05/16 09:28 Dose: 81 mg Enoxaparin Sodium (Lovenox) 40 mg SC DAILY [facility] Last Admin: 09/05/16 09:25 Dose: 40 mg Vancomycin HCl 1,000 mg/ (Sodium Chloride) 250 mls @ 166.6 mls/hr IVPB Q12H [facility] Last Admin: 09/05/16 11:52 Dose: 166.6 mls/hr Piperacillin Sod/Tazobactam (Sod 3.375 gm/ Sodium Chloride) 100 mls @ 200 mls/ hr IVPB Q6H [facility] Last Admin: 09/05/16 09:25 Dose: 200 mls/hr Insulin Aspart (Novolog) 0 unit SC ACHS [facility] PRN Reason: Protocol Last Admin: 09/05/16 11:47 Dose: 6 unit Insulin Detemir (Levemir) 45 unit SC ACBHS [facility] Lamotrigine (Lamictal) 150 mg PO Q12 [facility] Losartan Potassium (Cozaar) 50 mg PO DAILY [facility] Last Admin: 09/05/16 09:38 Dose: 50 mg Metformin HCl (Glucophage) 1,000 mg PO BID [facility] Last Admin: 09/05/16 09:28 Dose: 1,000 mg Mirtazapine (Remeron) 45 mg PO HS [facility] Oxycodone/Acetaminophen (Percocet 5/325 Mg Tab) 1 tab PO Q4H PRN PRN Reason: Pain, moderate (4-7) Stop: 09/06/16 22:11 Last Admin: 09/05/16 12:44 Dose: 1 tab Rosuvastatin Calcium (Crestor) 5 mg PO HS [facility] Last Admin: 09/04/16 21:26 Dose: 5 mg Zolpidem Tartrate (Ambien) 5 mg PO HS [facility] Last Admin: 09/04/16 21:56 Dose: Not Given - Labs Labs: 09/05/16 06:18 09/04/16 07:39 - Constitutional Appears: No Acute Distress - Extremities Exam Additional comments: Vasc: DP and PT pulses palpable 2/4. Skin temperature warm to warm from proximal to distal b/l. CFT <3 seconds x10. No increased warmth noted to surgical site. Mild erythema noted around surgical sites. Neuro: Light touch sensation intact. Derm: Incisions noted to 1) dorsum of right hallux, 2) dorsum of right 1st metatarsal, and 3) dorsum of left hallux appear well-coapted with no wound dehiscence noted. No drainage, no purulence, no malodor noted. All sutures appear to be intact. Ortho: Pain on palpation noted to incision sites x3. - Neurological Exam Neurological Exam: Alert, Awake, Oriented x3 Assessment and Plan - Assessment and Plan (Free Text) Assessment: 50 year old female patient 1 week s/p right foot surgery and b/l hallux nail avulsions Plan: Patient seen and evaluated at bedside. Charts, labs, vitals reviewed Discussed with attending, Dr. Lieberman. Right foot dressed with xeroform, 4x4 gauze, and noncompressive kerlix. Patient is to be NWB on RLE and advised to elevate leg. Left hallux dressed with Telfa, 4x4s, and kerlix. Serum nicotine results pending. Podiatry will continue to follow while in-house.
--- NOTE | 2016-09-05 17:29 | CON ---
DATE: 09/05/2016 CHIEF COMPLAINT AND REASON FOR CONSULTATION: The patient referred by Dr. Royce Dupree for evaluation as maggy jr has history of both bipolar disorder and also referred for meds readjustment. The patient sta rosa that she is not taking the medicines she used to take from the office. HISTORY OF PRESENT ILLNESS: This is a case of a 50-year-old female who was admitted here. The patie nt is status post surgery of her right foot, but the patient has been complaining that the foot is st arting to turn red and having pain and drainage. The patient admitted for right foot infection as we ll as uncontrolled diabetes. The patient referred for comanagement. The patient has been asking for regular regimen psych meds at home. The patient has been a patient of mine for many years. History of bipolar for many years and has been taking Lamictal 150 mg twice a day, Xanax 2 mg 2-3 times a da y, Ambien 10 mg at bedtime as well as Remeron 45 mg at bedtime. She states that the dosage she is ge tting in the hospital is not the right dose. The patient asking if her meds could be readjusted as t he patient is taking only Ambien 5 mg daily, Lamictal 200 mg twice a day, Remeron 30 mg at bedtime, X anax 1 mg b.i.d. p.r.n. She was noted earlier to be very lethargic but asking to resume her psych me dication. PAST PSYCHIATRIC HISTORY: History of bipolar as well as history of suicidal attempts in the past. S he has been admitted in psych unit several times. MEDICAL HISTORY: History of uncontrolled diabetes, history of hypertension, history of CVA, hypercho lesterolemia, seizure, history of bipolar. The patient used to take Abilify before it was discontinu ed because of history of CVA. DRUG AND ALCOHOL HISTORY: The patient is a smoker. Denies any alcohol or drug use. PSYCHOSOCIAL HISTORY: The patient used to be a nurse, is stable secondary to psych problems. ALLERGIES: IODINE DYE. CURRENT MEDICATIONS: Include Ambien 5 mg at bedtime, Cozaar, Crestor, Ecotrin, Glucophage, Lamictal 200 mg b.i.d., oxycodone, piperacillin, Remeron 30 mg at bedtime, Xanax 1 mg p.o. b.i.d. VITAL SIGNS: Temperature is 98.5, pulse rate is 89, blood pressure 100/63, respirations 20, oxygen s aturation is 98% room air. Her last blood sugar is still elevated at 325. The patient did still hav e sugars above 400. REVIEW OF SYSTEMS: GENERAL: The patient alert and oriented x 3, seen in her room with some family members still irritab le, anxious, states that she needs her medicines to be adjusted. SKIN: No diaphoresis. HEENT: No headache, no dizziness. NECK: Supple. RESPIRATORY: No dyspnea. CARDIOVASCULAR: No chest pain. GASTROINTESTINAL: The patient is eating. EXTREMITIES: The patient is complaining of mild pain in the right foot. MUSCULOSKELETAL: Feels weak. NEUROLOGIC: Alert at times. GENITOURINARY: No dysuria. MENTAL STATUS EXAMINATION: Well-developed female who looks stated age, about 5 feet 4 inches and yulissa ghs 140 pounds. Mood still anxious. She is easily agitated, somatic. Affect is reactive. Speech s pontaneous. Thought process coherent. Thought content: The patient wants her meds readjusted espec ially the Xanax and Remeron and Lamictal. The patient is aware that she cannot take Ambien 5 mg at b edtime here in the hospital per hospital protocol and she is amenable to that. As stated the psychos is. No suicidal or homicidal ideation. Attention and memory seems to be fair. Insight and judgment fair. Impulse control is fair. IMPRESSION: Bipolar disorder, mixed as well as history of nicotine dependence. PLAN AND RECOMMENDATION: The patient seen, meds reviewed. Continue present management. We will fran nge her psych meds as follows, continue Ambien 5 mg at bedtime. We will change the Lamictal to 150 m g q. 12 instead of 200 mg b.i.d. and change the Remeron dose from 30 mg to 45 mg at bedtime and then continue Xanax, but change the dose to 2 mg p.o. q. 12 instead of 1 mg b.i.d. The patient has been o n benzos for quite a while. We will also monitor her blood sugar. Continue treatment plan as outlin ed. Darius Yates MD cc: [id number] TT: 09/05/2016 17:29:21 Confirmation # [id number] Dictation # [id number] cn
[2016-09-05] MEDS: Insulin Detemir 100 units/ml Vial (Levemir) SC SCH (22:00)
[2016-09-06] MEDS: Piperacillin/Tazobact 3.375 GM in Sodium Chloride 100 ML IVPB SCH ×4 (04:06→21:30)
[2016-09-06 06:37] LABS: BASO # 0.1 K/uL (0.0-0.2); BASO % 1.3 % (0.0-2.0); EOS # 0.6 K/uL (0.0-0.7); EOS % 5.9 % (0.0-4.0); HEMATOCRIT 37.6 % (34.0-47.0); LYMPH # 3.5 K/uL (1.0-4.3); MEAN CORPUSCULAR HEMOGLOBIN 27.8 pg (27.0-31.0); MEAN CORPUSCULAR HGB CONC 32.7 g/dL (33.0-37.0); MEAN PLATELET VOLUME 10.1 fL (7.2-11.7); MONO # 0.5 K/uL (0.0-0.8); MONO % 5.4 % (0.0-10.0); RED CELL DISTRIBUTION WIDTH 12.9 % (11.5-14.5); WHITE BLOOD COUNT 9.5 K/uL (4.8-10.8)
[2016-09-06 06:43] LABS: CHLORIDE 98 mmol/L (98-107)
[2016-09-06 06:44] LABS: POTASSIUM 3.9 mmol/L (3.6-5.2)
[2016-09-06 06:45] LABS: GFR AFRICAN-AMERICAN > 60
[2016-09-06 06:46] LABS: ALB/GLOB RATIO 1.1 (1.0-2.1); ALKALINE PHOSPHATASE 66 U/L (38-126); ALT/SGPT 12 U/L (9-52); AST/SGOT 9 U/L (14-36); BILIRUBIN,TOTAL 0.5 mg/dL (0.2-1.3); BLOOD UREA NITROGEN 16 mg/dL (7-17); CALCIUM 8.8 mg/dl (8.6-10.4); CARBON DIOXIDE 26 mmol/L (22-30); TOTAL PROTEIN 5.5 g/dL (6.3-8.3)
[2016-09-06 06:47] LABS: MAGNESIUM 1.7 mg/dL (1.6-2.3)
[2016-09-06 06:49] LABS: SODIUM 131 mmol/L (132-148)
[2016-09-06 07:05] LABS: GLUCOSE,RANDOM 465 mg/dL (65-105)
[2016-09-06] MEDS: (Novolog) Insulin Aspart, Recombinant 100 u/ml 10 ml vial SC SCH ×5 (08:24→21:30)
[2016-09-06] MEDS: Insulin Detemir 100 units/ml Vial (Levemir) SC SCH ×5 (08:24→18:00)
[2016-09-06] MEDS: Enoxaparin 40 mg Syringe SC SCH (10:30)
--- NOTE | 2016-09-06 11:01 | CP.PCM.PN ---
Subjective - Date & Time of Evaluation Date of Evaluation: 09/06/16 Time of Evaluation: 07:00 - Subjective Subjective: PGY2 medicine note - Dr. Coates's Service: Patient seen and examined this AM. No acute overnight events per nursing. Patients blood glucose has been running high. Will make further adjustments to Insulin regiment. Otherwise patient is comfortable, in no acute distress. Right foot surgical site CDI. Objective - Vital Signs/Intake and Output Vital Signs (last 24 hours): Temp Pulse Resp BP Pulse Ox 98.1 F 74 20 103/70 96 09/06/16 07:28 09/06/16 07:28 09/06/16 07:28 09/06/16 07:28 09/06/16 07:28 Intake and Output: 09/06/16 09/06/16 06:59 18:59 Intake Total 340 Balance 340 - Medications Medications: Current Medications Albuterol/Ipratropium (Duoneb 3 Mg/0.5 Mg (3 Ml) Ud) 3 ml INH RQ6 PRN PRN Reason: Shortness of Breath Alprazolam (Xanax) 2 mg PO Q12 [facility] Last Admin: 09/06/16 10:30 Dose: 2 mg Aspirin (Ecotrin) 81 mg PO DAILY [facility] Last Admin: 09/06/16 10:30 Dose: 81 mg Enoxaparin Sodium (Lovenox) 40 mg SC DAILY [facility] Last Admin: 09/06/16 10:30 Dose: 40 mg Vancomycin HCl 1,000 mg/ (Sodium Chloride) 250 mls @ 166.6 mls/hr IVPB Q12H [facility] Last Admin: 09/05/16 21:39 Dose: 166.6 mls/hr Piperacillin Sod/Tazobactam (Sod 3.375 gm/ Sodium Chloride) 100 mls @ 200 mls/ hr IVPB Q6H [facility] Last Admin: 09/06/16 10:29 Dose: 200 mls/hr Insulin Aspart (Novolog) 0 unit SC ACHS [facility] PRN Reason: Protocol Last Admin: 09/06/16 08:24 Dose: 10 unit Insulin Detemir (Levemir) 50 unit SC TID [facility] Last Admin: 09/06/16 10:47 Dose: Not Given Lamotrigine (Lamictal) 150 mg PO Q12 [facility] Last Admin: 06/27/17 10:30 Dose: 150 mg Losartan Potassium (Cozaar) 50 mg PO DAILY [facility] Last Admin: 09/06/16 10:30 Dose: 50 mg Metformin HCl (Glucophage) 1,000 mg PO BID [facility] Last Admin: 09/06/16 10:30 Dose: 1,000 mg Mirtazapine (Remeron) 45 mg PO [facility] Last Admin: 09/05/16 21:35 Dose: 45 mg Oxycodone/Acetaminophen (Percocet 5/325 Mg Tab) 1 tab PO Q4H PRN PRN Reason: Pain, moderate (4-7) Stop: 09/06/16 22:11 Last Admin: 09/05/16 12:44 Dose: 1 tab Rosuvastatin Calcium (Crestor) 5 mg PO [facility] Last Admin: 09/05/16 21:34 Dose: 5 mg Zolpidem Tartrate (Ambien) 5 mg PO [facility] Last Admin: 09/05/16 23:09 Dose: 5 mg - Labs Labs: 09/06/16 06:23 09/06/16 06:23 - Additional Findings Additional findings: - Constitutional Appears: Non-toxic, No Acute Distress - Head Exam Head Exam: ATRAUMATIC, NORMAL INSPECTION, NORMOCEPHALIC - Eye Exam Eye Exam: PERRL. absent: Scleral icterus - ENT Exam ENT Exam: Mucous Membranes Dry, Normal External Ear Exam - Neck Exam Neck exam: Negative for: Lymphadenopathy - Respiratory Exam Respiratory Exam: Decreased Breath Sounds, Clear to Auscultation Bilateral - Cardiovascular Exam Cardiovascular Exam: REGULAR RHYTHM, +S1, +S2 - GI/Abdominal Exam GI & Abdominal Exam: Normal Bowel Sounds, Soft. absent: Tenderness - Exam Exam: NORMAL INSPECTION - Extremities Exam Extremities exam: Positive for: pedal edema, tenderness. Negative for: calf tenderness - Neurological Exam Neurological Exam: Alert, Awake, Oriented x3 Assessment and Plan - Assessment and Plan (Free Text) Assessment: Right foot infection Status: Acute 09/06: Podiatry will continue to follow while in-house, stable from podiatry standpoint. Podiatry Consult, Dr. Lieberman, help appreciated. ID Consulted, Dr. Wallace, help appreciated Vancomycin HCl 1,000 mg/ (Sodium Chloride) 250 mls @ 166.6 mls/hr IVPB Q12H [facility] Piperacillin Sod/Tazobactam (Sod 3.375 gm/ Sodium Chloride) 100 mls @ 200 mls/ hr IVPB Q6H [facility] Status post right foot surgery Status: Acute 09/06: Podiatry will continue to follow while in-house, stable from podiatry standpoint. Podiatry Consult, Dr. Lieberman, help appreciated. Oxycodone/Acetaminophen (Percocet 5/325 Mg Tab) 1 tab PO Q4H PRN, moderate pain Uncontrolled diabetes mellitus Status: Acute 09/06: Glucose 465. Increase to Levemir 50mg SC TID - Blood glucose down to 168. 09/05: Glucose 349. Continue metformin 1000mg PO BID. Increase to ISS High dose. Increase to Levemir 45mg SC ACBHS. Consider further increasing Levemir to 45mg SC TID if blood glucose does not improve tomorrow. - metformin 1000mg PO BID. - ISS High dose COPD (chronic obstructive pulmonary disease) Status: Acute Priority: Medium Albuterol/Ipratropium (Duoneb 3 Mg/0.5 Mg (3 Ml) Ud) 3 ml INH RQ6 PRN HTN (hypertension) Status: Acute Aspirin (Ecotrin) 81 mg PO DAILY [facility] Losartan Potassium (Cozaar) 50 mg PO DAILY [facility] Rosuvastatin Calcium (Crestor) 5 mg PO HS [facility] Insomnia Zolpidem Tartrate (Ambien) 5 mg PO HS [facility] Bipolar Disorder Psych consulted, Dr. Nunes, help appreciated Lamotrigine (Lamictal) 200 mg PO BID [facility] Mirtazapine (Remeron) 30 mg PO HS [facility] Prophylaxis Xanax 1mg PO BID PRN Enoxaparin Sodium (Lovenox) 40 mg SC DAILY [facility]
[2016-09-06] MEDS: Oxycodone/Acetaminophen 5/325 mg Tab PO PRN ×2 (12:13→18:05)
--- NOTE | 2016-09-06 12:38 | CP.PCM.PN ---
Subjective - Date & Time of Evaluation Date of Evaluation: 09/06/16 Time of Evaluation: 10:00 - Subjective Subjective: Patient seen bedside regarding right foot surgical site infection. She is seen resting in bed in [facility]. States pain to right foot has improved since yesterday. Denies F/C/N/V/SOB. Objective - Vital Signs/Intake and Output Vital Signs (last 24 hours): Temp Pulse Resp BP Pulse Ox 98.1 F 74 20 103/70 96 09/06/16 07:28 09/06/16 07:28 09/06/16 07:28 09/06/16 07:28 09/06/16 07:28 Intake and Output: 09/06/16 09/06/16 06:59 18:59 Intake Total 340 Balance 340 - Medications Medications: Current Medications Albuterol/Ipratropium (Duoneb 3 Mg/0.5 Mg (3 Ml) Ud) 3 ml INH RQ6 PRN PRN Reason: Shortness of Breath Alprazolam (Xanax) 2 mg PO Q12 [facility] Last Admin: 09/06/16 10:30 Dose: 2 mg Aspirin (Ecotrin) 81 mg PO DAILY [facility] Last Admin: 09/06/16 10:30 Dose: 81 mg Enoxaparin Sodium (Lovenox) 40 mg SC DAILY [facility] Last Admin: 09/06/16 10:30 Dose: 40 mg Vancomycin HCl 1,000 mg/ (Sodium Chloride) 250 mls @ 166.6 mls/hr IVPB Q12H [facility] Last Admin: 09/06/16 11:30 Dose: 166.6 mls/hr Piperacillin Sod/Tazobactam (Sod 3.375 gm/ Sodium Chloride) 100 mls @ 200 mls/ hr IVPB Q6H [facility] Last Admin: 09/06/16 10:29 Dose: 200 mls/hr Insulin Aspart (Novolog) 0 unit SC ACHS [facility] PRN Reason: Protocol Last Admin: 09/06/16 12:14 Dose: 4 unit Insulin Detemir (Levemir) 50 unit SC TID [facility] Last Admin: 09/06/16 10:47 Dose: Not Given Lamotrigine (Lamictal) 150 mg PO Q12 [facility] Last Admin: 09/06/16 10:30 Dose: 150 mg Losartan Potassium (Cozaar) 50 mg PO DAILY [facility] Last Admin: 09/06/16 10:30 Dose: 50 mg Metformin HCl (Glucophage) 1,000 mg PO BID [facility] Last Admin: 09/06/16 10:30 Dose: 1,000 mg Mirtazapine (Remeron) 45 mg PO [facility] Last Admin: 09/05/16 21:35 Dose: 45 mg Oxycodone/Acetaminophen (Percocet 5/325 Mg Tab) 1 tab PO Q4H PRN PRN Reason: Pain, moderate (4-7) Stop: 09/06/16 22:11 Last Admin: 09/06/16 12:13 Dose: 1 tab Rosuvastatin Calcium (Crestor) 5 mg PO [facility] Last Admin: 09/05/16 21:34 Dose: 5 mg Zolpidem Tartrate (Ambien) 5 mg PO [facility] Last Admin: 09/05/16 23:09 Dose: 5 mg - Labs Labs: 09/06/16 06:23 09/06/16 06:23 - Constitutional Appears: No Acute Distress - Extremities Exam Additional comments: LE exam: Vasc: DP and PT pulses palpable 2/4. Skin temperature warm to warm from proximal to distal b/l. CFT <3 seconds x10. No increased warmth noted to surgical site. Mild erythema and edema noted around surgical sites. Neuro: Light touch sensation intact. Derm: Incisions noted to 1) dorsum of right hallux, 2) dorsum of right 1st metatarsal, and 3) dorsum of left hallux appear well-coapted with no wound dehiscence noted and sutures intact. No drainage, no purulence, no malodor noted. Ortho: Pain on palpation noted to incision sites x3. - Neurological Exam Neurological Exam: Alert, Awake, Oriented x3 Assessment and Plan - Assessment and Plan (Free Text) Assessment: 50 year old female patient 2 weeks s/p right foot surgery and b/l hallux nail avulsions Plan: Patient seen and evaluated at bedside. Charts, labs, vitals reviewed Discussed with attending, Dr. Lieberman. Right foot dressed with xeroform, 4x4 gauze, and noncompressive kerlix. Patient is to be NWB on RLE and advised to elevate leg. Left hallux dressed with xeroform, 4x4s, and kerlix. Serum nicotine results pending. Podiatry will continue to follow while in-house, stable from podiatry standpoint.
--- NOTE | 2016-09-06 18:05 | CP.PCM.PN ---
Subjective - Date & Time of Evaluation Date of Evaluation: 09/06/16 Time of Evaluation: 17:56 - Subjective Subjective: Patient seen today and still anxious and noted to be having elevated blood sugar. Patient has been compliant with meds. Still labile, anxious but compliant with meds. Currently on Ambien, Lamictal, Remeron and Xanax. Temp Pulse Resp BP Pulse Ox 97.7 F 83 20 114/71 98 09/06/16 15:00 09/06/16 15:00 09/06/16 15:00 09/06/16 15:00 09/06/16 15:00 Review of systems: Patient is seen in her room, alert and oriented x 3. Slept better last night. Ox 3. Skin- no diaphoresis. HEENT- no headaches or dizziness. Neck- supple. Respiratory- no dyspnea, Cardio- no chest pain. - no dysuria. GI - no abdominal pain. Extremities- no tremors. Neuro- alert and ) x 3. MSE- fairly developed female, seen in her room. Mood is still labile and anxious , Speech is spontaneous. Affect is reactive. Thought process- coherent. Thought content- no si or hi. No psychosis. Attention and Memory- limited. Insight and Judgment- limited. Impulse control fair. DX- Bipolar disorder mixed as well as uncontrolled DM Plan- Continue present plan and management. Continue present psych meds. Monitor BS levels. Objective - Vital Signs/Intake and Output Vital Signs (last 24 hours): Temp Pulse Resp BP Pulse Ox 97.7 F 83 20 114/71 98 09/06/16 15:00 09/06/16 15:00 09/06/16 15:00 09/06/16 15:00 09/06/16 15:00 Intake and Output: 09/06/16 09/06/16 06:59 18:59 Intake Total 1170 Balance 1170 - Medications Medications: Current Medications Albuterol/Ipratropium (Duoneb 3 Mg/0.5 Mg (3 Ml) Ud) 3 ml INH RQ6 PRN PRN Reason: Shortness of Breath Alprazolam (Xanax) 2 mg PO Q12 [facility] Last Admin: 09/06/16 10:30 Dose: Not Given Aspirin (Ecotrin) 81 mg PO DAILY [facility] Last Admin: 09/06/16 10:30 Dose: 81 mg Enoxaparin Sodium (Lovenox) 40 mg SC DAILY [facility] Last Admin: 09/06/16 10:30 Dose: 40 mg Vancomycin HCl 1,000 mg/ (Sodium Chloride) 250 mls @ 166.6 mls/hr IVPB Q12H [facility] Last Admin: 09/06/16 11:30 Dose: 166.6 mls/hr Piperacillin Sod/Tazobactam (Sod 3.375 gm/ Sodium Chloride) 100 mls @ 200 mls/ hr IVPB Q6H [facility] Last Admin: 09/06/16 15:50 Dose: 200 mls/hr Insulin Aspart (Novolog) 0 unit SC ACHS [facility] PRN Reason: Protocol Last Admin: 09/06/16 17:34 Dose: Not Given Insulin Detemir (Levemir) 50 unit SC TID [facility] Last Admin: 09/06/16 16:40 Dose: 50 unit Lamotrigine (Lamictal) 150 mg PO Q12 [facility] Last Admin: 09/06/16 10:30 Dose: 150 mg Losartan Potassium (Cozaar) 50 mg PO DAILY [facility] Last Admin: 09/06/16 10:30 Dose: 50 mg Metformin HCl (Glucophage) 1,000 mg PO BID [facility] Last Admin: 09/06/16 17:25 Dose: 1,000 mg Mirtazapine (Remeron) 45 mg PO HS [facility] Last Admin: 09/05/16 21:35 Dose: 45 mg Oxycodone/Acetaminophen (Percocet 5/325 Mg Tab) 1 tab PO Q4H [facility] PRN Reason: Pain, moderate (4-7) Stop: 09/06/16 22:11 Last Admin: 09/06/16 12:13 Dose: 1 tab Rosuvastatin Calcium (Crestor) 5 mg PO HS [facility] Last Admin: 09/05/16 21:34 Dose: 5 mg Zolpidem Tartrate (Ambien) 5 mg PO HS [facility] Last Admin: 09/05/16 23:09 Dose: 5 mg - Labs Labs: 09/06/16 06:23 09/06/16 06:23
[2016-09-07] MEDS: Piperacillin/Tazobact 3.375 GM in Sodium Chloride 100 ML IVPB SCH ×2 (03:40→10:55)
[2016-09-07 06:45] LABS: BASO # 0.1 K/uL (0.0-0.2); BASO % 1.4 % (0.0-2.0); EOS # 0.6 K/uL (0.0-0.7); EOS % 5.7 % (0.0-4.0); HEMATOCRIT 39.6 % (34.0-47.0); LYMPH # 3.8 K/uL (1.0-4.3); LYMPH % 36.2 % (20.0-40.0); MEAN CELL VOLUME 85.3 fL (81.0-99.0); MEAN CORPUSCULAR HEMOGLOBIN 28.2 pg (27.0-31.0); MONO # 0.5 K/uL (0.0-0.8); MONO % 5.2 % (0.0-10.0); RED CELL DISTRIBUTION WIDTH 13.2 % (11.5-14.5); WHITE BLOOD COUNT 10.5 K/uL (4.8-10.8)
[2016-09-07 06:52] LABS: CHLORIDE 102 mmol/L (98-107); SODIUM 136 mmol/L (132-148)
[2016-09-07 06:53] LABS: POTASSIUM 3.7 mmol/L (3.6-5.2)
[2016-09-07 06:54] LABS: GFR AFRICAN-AMERICAN > 60
[2016-09-07 06:55] LABS: ALB/GLOB RATIO 1.1 (1.0-2.1); ALKALINE PHOSPHATASE 61 U/L (38-126); ALT/SGPT 12 U/L (9-52); AST/SGOT 13 U/L (14-36); BILIRUBIN,TOTAL 0.4 mg/dL (0.2-1.3); BLOOD UREA NITROGEN 16 mg/dL (7-17); CARBON DIOXIDE 25 mmol/L (22-30); GLUCOSE,RANDOM 240 mg/dL (65-105); PHOSPHOROUS 4.8 mg/dL (2.5-4.5); TOTAL PROTEIN 5.6 g/dL (6.3-8.3)
[2016-09-07 06:56] LABS: MAGNESIUM 1.7 mg/dL (1.6-2.3)
--- NOTE | 2016-09-07 07:44 | CP.PCM.PN ---
Subjective - Date & Time of Evaluation Date of Evaluation: 09/07/16 Time of Evaluation: 07:05 - Subjective Subjective: PGY2 medicine note - Dr. Coates's Service: Patient seen and examined this AM. No acute overnight events per nursing. Patients blood glucose is better controlled today at 240 (down from 465). Patient is cleared from podiatry standpoint. Otherwise patient is comfortable, in no acute distress. Right foot surgical site CDI. Objective - Vital Signs/Intake and Output Vital Signs (last 24 hours): Temp Pulse Resp BP Pulse Ox 98.3 F 74 20 104/65 96 09/07/16 00:00 09/07/16 00:00 09/07/16 00:00 09/07/16 00:00 09/07/16 00:00 Intake and Output: 09/07/16 09/07/16 06:59 18:59 Intake Total 340 Balance 340 - Medications Medications: Current Medications Albuterol/Ipratropium (Duoneb 3 Mg/0.5 Mg (3 Ml) Ud) 3 ml INH RQ6 PRN PRN Reason: Shortness of Breath Alprazolam (Xanax) 2 mg PO Q12 [facility] Last Admin: 09/06/16 21:40 Dose: 2 mg Aspirin (Ecotrin) 81 mg PO DAILY [facility] Last Admin: 09/06/16 10:30 Dose: 81 mg Enoxaparin Sodium (Lovenox) 40 mg SC DAILY [facility] Last Admin: 09/06/16 10:30 Dose: 40 mg Vancomycin HCl 1,000 mg/ (Sodium Chloride) 250 mls @ 166.6 mls/hr IVPB Q12H [facility] Last Admin: 09/06/16 22:11 Dose: 166.6 mls/hr Piperacillin Sod/Tazobactam (Sod 3.375 gm/ Sodium Chloride) 100 mls @ 200 mls/ hr IVPB Q6H [facility] Last Admin: 09/07/16 03:40 Dose: 200 mls/hr Insulin Aspart (Novolog) 0 unit SC ACHS [facility] PRN Reason: Protocol Last Admin: 09/06/16 21:30 Dose: Not Given Insulin Detemir (Levemir) 50 unit SC TID [facility] Last Admin: 09/06/16 18:00 Dose: Not Given Lamotrigine (Lamictal) 150 mg PO Q12 [facility] Last Admin: 09/06/16 21:28 Dose: 150 mg Losartan Potassium (Cozaar) 50 mg PO DAILY [facility] Last Admin: 09/06/16 10:30 Dose: 50 mg Metformin HCl (Glucophage) 1,000 mg PO BID [facility] Last Admin: 09/06/16 17:25 Dose: 1,000 mg Mirtazapine (Remeron) 45 mg PO HS [facility] Last Admin: 09/06/16 21:30 Dose: 45 mg Rosuvastatin Calcium (Crestor) 5 mg PO HS [facility] Last Admin: 09/06/16 21:29 Dose: 5 mg Zolpidem Tartrate (Ambien) 5 mg PO HS [facility] Last Admin: 09/06/16 22:16 Dose: 5 mg - Labs Labs: 09/07/16 06:19 09/07/16 06:19 - Additional Findings Additional findings: - Constitutional Appears: Non-toxic, No Acute Distress - Head Exam Head Exam: ATRAUMATIC, NORMAL INSPECTION, NORMOCEPHALIC - Eye Exam Eye Exam: PERRL. absent: Scleral icterus - ENT Exam ENT Exam: Mucous Membranes Dry, Normal External Ear Exam - Neck Exam Neck exam: Negative for: Lymphadenopathy - Respiratory Exam Respiratory Exam: Decreased Breath Sounds, Clear to Auscultation Bilateral - Cardiovascular Exam Cardiovascular Exam: REGULAR RHYTHM, +S1, +S2 - GI/Abdominal Exam GI & Abdominal Exam: Normal Bowel Sounds, Soft. absent: Tenderness - Exam Exam: NORMAL INSPECTION - Extremities Exam Extremities exam: Positive for: pedal edema, tenderness. Negative for: calf tenderness - Neurological Exam Neurological Exam: Alert, Awake, Oriented x3 Assessment and Plan - Assessment and Plan (Free Text) Assessment: Right foot infection Status: Acute 09/07: Possible discharge on Zyvox 600mg PO Q12 x 10 days (if covered by insurance). Otherwise patient will need PICC and IV Abx. 09/06: Podiatry will continue to follow while in-house, stable from podiatry standpoint. Podiatry Consult, Dr. Lieberman, help appreciated. ID Consulted, Dr. Wallace, help appreciated Vancomycin HCl 1,000 mg/ (Sodium Chloride) 250 mls @ 166.6 mls/hr IVPB Q12H [facility] Piperacillin Sod/Tazobactam (Sod 3.375 gm/ Sodium Chloride) 100 mls @ 200 mls/ hr IVPB Q6H [facility] Status post right foot surgery Status: Acute 09/06-09/07: Podiatry will continue to follow while in-house, stable from podiatry standpoint. Podiatry Consult, Dr. Lieberman, help appreciated. Oxycodone/Acetaminophen (Percocet 5/325 Mg Tab) 1 tab PO Q4H PRN, moderate pain Uncontrolled diabetes mellitus Status: Acute 09/07: Continue current regiment - blood glucose 236 today. 09/06: Glucose 465. Increase to Levemir 50mg SC TID - Blood glucose down to 168. 09/05: Glucose 349. Continue metformin 1000mg PO BID. Increase to ISS High dose. Increase to Levemir 45mg SC [facility]. Consider further increasing Levemir to 45mg SC TID if blood glucose does not improve tomorrow. - metformin 1000mg PO BID. - ISS High dose COPD (chronic obstructive pulmonary disease) Status: Acute Priority: Medium Albuterol/Ipratropium (Duoneb 3 Mg/0.5 Mg (3 Ml) Ud) 3 ml INH RQ6 PRN HTN (hypertension) Status: Acute Aspirin (Ecotrin) 81 mg PO DAILY [facility] Losartan Potassium (Cozaar) 50 mg PO DAILY [facility] Rosuvastatin Calcium (Crestor) 5 mg PO HS [facility] Insomnia Zolpidem Tartrate (Ambien) 5 mg PO HS [facility] Bipolar Disorder Psych consulted, Dr. Nunes, help appreciated Lamotrigine (Lamictal) 200 mg PO BID [facility] Mirtazapine (Remeron) 30 mg PO HS [facility] Prophylaxis Xanax 1mg PO BID PRN Enoxaparin Sodium (Lovenox) 40 mg SC DAILY [facility]
[2016-09-07] MEDS: (Novolog) Insulin Aspart, Recombinant 100 u/ml 10 ml vial SC SCH ×4 (08:48→17:23)
[2016-09-07] MEDS: Insulin Detemir 100 units/ml Vial (Levemir) SC SCH ×3 (10:53→17:24)
[2016-09-07] MEDS: Enoxaparin 40 mg Syringe SC SCH (10:54)
--- NOTE | 2016-09-07 13:37 | CP.PCM.PN ---
Subjective - Date & Time of Evaluation Date of Evaluation: 09/07/16 Time of Evaluation: 13:35 - Subjective Subjective: Patient seen for follow-up. Patient states she will be going home today. Patient has been compliant with meds intake but still irritable and salgado. Sleeping better.with meds. Currently on Remeron, Lamictal, Ambien and Xanax. BS better controlled. Objective - Vital Signs/Intake and Output Vital Signs (last 24 hours): Temp Pulse Resp BP Pulse Ox 98.3 F 74 20 104/65 96 09/07/16 00:00 09/07/16 00:00 09/07/16 00:00 09/07/16 00:00 09/07/16 00:00 Intake and Output: 09/07/16 09/07/16 06:59 18:59 Intake Total 340 Balance 340 - Medications Medications: Current Medications Albuterol/Ipratropium (Duoneb 3 Mg/0.5 Mg (3 Ml) Ud) 3 ml INH RQ6 PRN PRN Reason: Shortness of Breath Alprazolam (Xanax) 2 mg PO Q12 [facility] Last Admin: 09/07/16 10:59 Dose: Not Given Aspirin (Ecotrin) 81 mg PO DAILY [facility] Last Admin: 09/07/16 11:00 Dose: 81 mg Enoxaparin Sodium (Lovenox) 40 mg SC DAILY [facility] Last Admin: 09/07/16 10:54 Dose: 40 mg Vancomycin HCl 1,000 mg/ (Sodium Chloride) 250 mls @ 166.6 mls/hr IVPB Q12H [facility] Last Admin: 09/07/16 10:59 Dose: 166.6 mls/hr Piperacillin Sod/Tazobactam (Sod 3.375 gm/ Sodium Chloride) 100 mls @ 200 mls/ hr IVPB Q6H [facility] Last Admin: 09/07/16 10:55 Dose: 200 mls/hr Insulin Aspart (Novolog) 0 unit SC ACHS [facility] PRN Reason: Protocol Last Admin: 09/07/16 12:27 Dose: 6 unit Insulin Detemir (Levemir) 50 unit SC TID [facility] Last Admin: 09/07/16 10:53 Dose: 50 unit Lamotrigine (Lamictal) 150 mg PO Q12 [facility] Last Admin: 09/07/16 10:55 Dose: 150 mg Losartan Potassium (Cozaar) 50 mg PO DAILY [facility] Last Admin: 09/07/16 10:55 Dose: 50 mg Metformin HCl (Glucophage) 1,000 mg PO BID [facility] Last Admin: 09/07/16 10:54 Dose: 1,000 mg Mirtazapine (Remeron) 45 mg PO [facility] Last Admin: 09/06/16 21:30 Dose: 45 mg Rosuvastatin Calcium (Crestor) 5 mg PO [facility] Last Admin: 09/06/16 21:29 Dose: 5 mg Zolpidem Tartrate (Ambien) 5 mg PO [facility] Last Admin: 09/06/16 22:16 Dose: 5 mg - Labs Labs: 09/07/16 06:19 09/07/16 06:19 - Constitutional Appears: Well, No Acute Distress - Head Exam Head Exam: ATRAUMATIC - Eye Exam Eye Exam: EOMI Additional comments: no blurring of vision, no eye pain - Neck Exam Neck Exam: Full ROM - Respiratory Exam Additional comments: no dyspnea - Cardiovascular Exam Additional comments: no chest pain, no palpitations. - GI/Abdominal Exam Additional comments: no nausea and vomiting, no abdominal pain - Exam Additional comments: no dysuria, has polyuria - Extremities Exam Extremities Exam: Full ROM - Neurological Exam Neurological Exam: Alert, Awake, Normal Gait, Oriented x3 - Psychiatric Exam Psychiatric exam: Anxious, Depressed - Skin Additional comments: no pruritus, no sweating Assessment and Plan - Assessment and Plan (Free Text) Assessment: Bipolar disorder - mixed Uncontrolled DM hx of TIA Plan: Patient to continue present psych meds. Patient has enough meds and to follow- up in my office next after discharge. Psych stable for discharge to home. Needs to see her scale manager and follow her diet restriction.
[2016-09-07 17:23] VITALS: BP 122/75; PULSE 77; TEMP 98.2; O2SAT 98
[2016-09-07] MEDS ORDERED: Piperacillin/Tazobact 3.375 GM in Sodium Chloride 100 ML IVPB SCH (18:00)
== END 2016-09-07 17:50 | disposition home or self-care (01) | DRG 863 ==
LOC: C.ER 17:44 → C.9E 22:16 → C.3T 09-04 01:18
PROVIDERS: ADMIT Internal Medicine Pulmonary Disease; ATTEND Internal Medicine Pulmonary Disease
DX: T81.4XXA Infection following a procedure, initial encounter (principal); E11.65 Type 2 diabetes mellitus with hyperglycemia; I10 Essential (primary) hypertension; F31.60 Bipolar disorder, current episode mixed, unspecified; M79.671 Pain in right foot; G47.00 Insomnia, unspecified; J44.9 Chronic obstructive pulmonary disease, unspecified; J45.20 Mild intermittent asthma, uncomplicated; K21.9 Gastro-esophageal reflux disease without esophagitis; F17.210 Nicotine dependence, cigarettes, uncomplicated; F20.9 Schizophrenia, unspecified; E78.5 Hyperlipidemia, unspecified; E78.00 Pure hypercholesterolemia, unspecified; Z79.82 Long term (current) use of aspirin; Z79.84 Long term (current) use of oral hypoglycemic drugs; Z79.899 Other long term (current) drug therapy; Z86.73 Personal history of transient ischemic attack (TIA), and cerebral infarction without residual deficits; Z90.49 Acquired absence of other specified parts of digestive tract

== ENCOUNTER 2016-09-09 12:04 | Inpatient (IN) | payer OTHER, MEDICAID ==
[2016-09-09 12:05] VITALS: BMI 25.5
--- NOTE | 2016-09-09 12:23 | C.PDOC ---
Time Seen by Provider: 09/09/16 12:20 Chief Complaint (Nursing): High Blood Sugar Past Medical History Vital Signs: Last Vital Signs Temp 98.0 F 09/09/16 12:09 Pulse 103 H 09/09/16 12:09 Resp 19 09/09/16 12:09 BP 155/91 H 09/09/16 12:09 Pulse Ox 99 09/09/16 12:09 - Medical History PMH: Anxiety, Arthritis (right foot 1st digit), Asthma ("MILD INTERMITTENT ASTHMA,UNCOMPLICATED"), Back Problems, Bipolar Disorder, Depression, Diabetes ( Poorly controlled), HTN, Hypercholesterolemia, Schizophrenia, Seizures (last one 07/2015), TIA (05/2012, 02/2015) Denies: Chronic Kidney Disease Surgical History: Appendectomy (34 years ago) - [employer] Procedures INSERT OF MONITOR DEV INTO CHEST SUBCU/FASCIA, PERC APPROACH (02/23/15) Family History: States: Unknown Family Hx - Social History Hx Tobacco Use: Yes (heavy smoker) Hx Alcohol Use: No Hx Substance Use: No - Immunization History Hx Tetanus Toxoid Vaccination: Yes (2014) Hx Influenza Vaccination: Yes (2015) Hx Pneumococcal Vaccination: Yes (2015) ED Course And Treatment O2 Sat by Pulse Oximetry: 99
[2016-09-09] MEDS ORDERED: Piperacillin/Tazobact 3.375 gm 100 ML IV STA (12:27)
--- NOTE | 2016-09-09 12:27 | C.PDOC ---
History Of Present Illness 50 Y/O FEMALE, HISTORY OF DM, SENT TO ER BY [facility]. FOX FOR ADMISSION, ADMISSION OF PICC LINE, IV ABX. PT WAS RECENTLY DISCHARGED FROM [facility] 2 DAYS AGO. STATES SHE WAS ADVISED TO RETURN FOR ADMISSION AFTER EVALUATION AT [facility] TODAY. DENIES FEVER, CHILLS, WEAKNESS/ NUMBNESS, OR OTHER COMPLAINTS. Time Seen by Provider: 09/09/16 12:20 Chief Complaint (Nursing): High Blood Sugar History Per: Patient History/Exam Limitations: no limitations Onset/Duration Of Symptoms: Persistent Current Symptoms Are (Timing): Still Present Recent travel outside of the [place]: No Past Medical History Reviewed: Historical Data, Nursing Documentation, Vital Signs Vital Signs: Last Vital Signs Temp 98.0 F 09/09/16 12:09 Pulse 103 H 09/09/16 12:09 Resp 19 09/09/16 12:09 BP 155/91 H 09/09/16 12:09 Pulse Ox 99 09/09/16 12:32 - Medical History PMH: Anxiety, Arthritis (right foot 1st digit), Asthma ("MILD INTERMITTENT ASTHMA,UNCOMPLICATED"), Back Problems, Bipolar Disorder, Depression, Diabetes ( Poorly controlled), HTN, Hypercholesterolemia, Schizophrenia, Seizures (last one 07/2015), TIA (05/2012, 02/2015) Surgical History: Appendectomy (34 years ago) - [place] Procedures INSERT OF MONITOR DEV INTO CHEST SUBCU/FASCIA, PERC APPROACH (02/23/15) Family History: States: Unknown Family Hx - Social History Hx Tobacco Use: Yes (heavy smoker) Hx Alcohol Use: No Hx Substance Use: No - Immunization History Hx Tetanus Toxoid Vaccination: Yes (2014) Hx Influenza Vaccination: Yes (2015) Hx Pneumococcal Vaccination: Yes (2015) Review Of Systems Constitutional: Negative for: Fever, Chills Cardiovascular: Negative for: Chest Pain, Palpitations Respiratory: Negative for: Cough, Shortness of Breath Gastrointestinal: Negative for: Nausea, Vomiting Skin: Positive for: Lesions (BILATERAL FEET) Neurological: Negative for: Headache, Dizziness Physical Exam - Physical Exam Appears: Non-toxic, No Acute Distress Skin: Warm, Dry Head: Atraumatic, Normacephalic Chest: Symmetrical Cardiovascular: Rhythm Regular Respiratory: Normal Breath Sounds, No Rales, No Rhonchi, No Wheezing Gastrointestinal/Abdominal: Soft, No Tenderness, No Guarding, No Rebound Back: Normal Inspection Extremity: Normal ROM, Capillary Refill (< 2 SEC. ) Neurological/Psych: Oriented x3, Normal Speech, Normal Cognition ED Course And Treatment O2 Sat by Pulse Oximetry: 99 (RA) Pulse Ox Interpretation: Normal Progress - Re-Evaluation Re-evaluation Note: 09/09/16 12:31 D/W DR GODINEZ WILL ADMIT - Data Reviewed Data Reviewed: Lab, Old records Disposition Counseled Patient/Family Regarding: Studies Performed, Diagnosis - Disposition Disposition: HOSPITALIZED Disposition Time: 12:31 Condition: STABLE - POA Present On Arrival: Poor Glycemic Control - Clinical Impression Clinical Impression: Uncontrolled diabetes mellitus, Osteomyelitis, Cellulitis, Diabetic ulcer of foot associated with diabetes mellitus due to underlying condition, limited to breakdown of skin - Scribe Statement The provider has reviewed the documentation as recorded by the Delia PACHECO Provider Attestation: All medical record entries made by the Rosanaibchanel were at my direction and personally dictated by me. I have reviewed the chart and agree that the record accurately reflects my personal performance of the history, physical exam, medical decision making, and the department course for this patient. I have also personally directed, reviewed, and agree with the discharge instructions and disposition. Decision To Admit - Pt Status Changed To: Hospital Disposition Of: Inpatient - Admit Certification Admit to Inpatient:: After my assessment, the patient will require hospitalization for at least two midnights. This is because of the severity of symptoms shown, intensity of services needed, and/or the medical risk in this patient being treated as an outpatient. - InPatient: Physician Admission Certification: I certify that this patient requires 2 or more midnights of care for the following reason:: SEE NOTE - . Bed Request Type: Regular Admitting Physician: Mando Godinez Patient Diagnosis: Uncontrolled diabetes mellitus, Osteomyelitis, Cellulitis, Diabetic ulcer of foot associated with diabetes mellitus due to underlying condition, limited to breakdown of skin
[2016-09-09] MEDS ORDERED: Vancomycin 1 gm/NS 200 ml 1 GM/200 ML BAG IVPB STA (12:30)
[2016-09-09] MEDS ORDERED: Albuterol-Ipratrop 3 mg / 0.5 (3 ml) UD INH PRN (12:41)
[2016-09-09 12:50] LABS: BASO # 0.3 K/uL (0.0-0.2); BASO % 2.3 % (0.0-2.0); EOS # 0.7 K/uL (0.0-0.7); EOS % 6.4 % (0.0-4.0); HEMOGLOBIN 13.3 g/dL (11.0-16.0); LYMPH # 3.5 K/uL (1.0-4.3); LYMPH % 31.8 % (20.0-40.0); MEAN CELL VOLUME 85.7 fL (81.0-99.0); MEAN CORPUSCULAR HEMOGLOBIN 27.6 pg (27.0-31.0); MEAN CORPUSCULAR HGB CONC 32.2 g/dL (33.0-37.0); MEAN PLATELET VOLUME 9.7 fL (7.2-11.7); MONO # 0.5 K/uL (0.0-0.8); MONO % 4.3 % (0.0-10.0); NEUT # 6.1 K/uL (1.8-7.0); NEUT % 55.2 % (50.0-75.0); NRBC % 0.1 % (0.0-2.0); RBC 4.83 Mil/uL (3.80-5.20); WHITE BLOOD COUNT 11.1 K/uL (4.8-10.8)
--- NOTE | 2016-09-09 12:58 | CP.PCM.PN ---
Subjective - Date & Time of Evaluation Date of Evaluation: 09/09/16 Time of Evaluation: 14:47 - Subjective Subjective: PGY2 Medicine Note- Dr. Coates's service Patient sent from Dr. Lieberman's office today for cellulitis of right foot. Patient was recently hospitalized for same infection. Per Dr. Lieberman, patient to receive PICC for senior care antibiotics. Patient reports pain in right foot along with sensation of heat and burning to level of right hip. Patient also had elevated blood sugar. Patient denies fever, chills, nausea. Objective - Vital Signs/Intake and Output Vital Signs (last 24 hours): Temp Pulse Resp BP Pulse Ox 98.0 F 103 H 19 155/91 H 99 09/09/16 12:09/09/16 12:09/09/16 12:09/09/16 12:09/09/16 12:35 - Medications Medications: Current Medications Albuterol/Ipratropium (Duoneb 3 Mg/0.5 Mg (3 Ml) Ud) 3 ml INH RQ6 PRN PRN Reason: Shortness of Breath Alprazolam (Xanax) 1 mg PO BID [facility] Aspirin (Ecotrin) 81 mg PO DAILY [facility] Home Med (Metformin [Glucophage]) 1,000 mg PO BID [facility] Piperacillin Sod/Tazobactam Sod (Zosyn 3.375 In Ns 100ml) 100 mls @ 200 mls/hr IV STAT [facility] Stop: 09/09/16 12:56 Vancomycin/Sodium Chloride (Vancocin) 1 gm in 200 mls @ 166.667 mls/hr IVPB STAT [facility] Stop: 09/09/16 13:41 Insulin Detemir (Levemir) 50 unit SC TID [facility] Insulin Human Regular (Novolin R) 0 unit SC ACHS [facility] PRN Reason: Protocol Lamotrigine (Lamictal) 200 mg PO BID [facility] Losartan Potassium (Cozaar) 50 mg PO DAILY [facility] Mirtazapine (Remeron) 30 mg PO HS [facility] Oxycodone/Acetaminophen (Percocet 5/325 Mg Tab) 1 tab PO Q6H PRN PRN Reason: Pain, moderate (4-7) Stop: 09/12/16 12:42 Rosuvastatin Calcium (Crestor) 5 mg PO HS [facility] Zolpidem Tartrate (Ambien) 5 mg PO HS [facility] - Labs Labs: 09/09/16 12:46 - Constitutional Appears: Non-toxic, No Acute Distress - Head Exam Head Exam: ATRAUMATIC, NORMOCEPHALIC - Eye Exam Eye Exam: EOMI - ENT Exam ENT Exam: Mucous Membranes Moist - Respiratory Exam Respiratory Exam: Clear to Ausculation Bilateral, NORMAL BREATHING PATTERN - Cardiovascular Exam Cardiovascular Exam: +S1, +S2 - GI/Abdominal Exam GI & Abdominal Exam: Soft, Normal Bowel Sounds. absent: Tenderness - Extremities Exam Additional comments: right foot wrapped in clean gauze, foot erythematous, warm to touch left hallux wrapped in clean gauze - Neurological Exam Neurological Exam: Alert, Awake - Psychiatric Exam Psychiatric exam: Normal Affect - Skin Skin Exam: Warm Assessment and Plan - Assessment and Plan (Free Text) Assessment: Right foot infection s/p right foot surgery Status: Acute antibiotics given in ER, will continue vancomycin/ zosyn PICC ordered percocet 5/325 i tab q4prn Podiatry Consult, Dr. Lieberman, help appreciated. ID Consulted, Dr. Wallace, help appreciated Uncontrolled diabetes mellitus Status: Acute continue Levemir 50mg SC TID Continue metformin 1000mg PO BID - accuchecks ACHS - ISS COPD (chronic obstructive pulmonary disease) Status: Acute Albuterol/Ipratropium (Duoneb 3 Mg/0.5 Mg (3 Ml) Ud) 3 ml INH RQ6 PRN HTN (hypertension) Status: Acute Continue home meds: Aspirin (Ecotrin) 81 mg PO DAILY [facility] Losartan Potassium (Cozaar) 50 mg PO DAILY [facility] Rosuvastatin Calcium (Crestor) 5 mg PO HS [facility] Insomnia continue home meds: Zolpidem Tartrate (Ambien) 5 mg PO HS [facility] Bipolar Disorder psych consulted on previous admission continue home meds: Lamotrigine (Lamictal) 200 mg PO BID [facility] Mirtazapine (Remeron) 30 mg PO HS [facility] xanax 1mg PO BID All medical management as per Dr. Coates
[2016-09-09 13:06] LABS: GFR AFRICAN-AMERICAN > 60; GFR NON-AFRICAN AMERICAN > 60
[2016-09-09 13:07] LABS: BLOOD UREA NITROGEN 15 mg/dL (7-17); CALCIUM 9.1 mg/dl (8.6-10.4)
[2016-09-09] MEDS ORDERED: Vancomycin 1 GM 1 GM/250 ML BAG IVPB ONE (13:11)
[2016-09-09] MEDS ORDERED: Piperacillin/Tazobact 3.375 gm 100 ML IVPB ONE (13:11)
[2016-09-09] MEDS: Insulin Detemir 100 units/ml Vial (Levemir) SC SCH ×2 (14:05→18:07)
[2016-09-09] MEDS: Oxycodone/Acetaminophen 5/325 mg Tab PO PRN (16:32)
--- NOTE | 2016-09-09 16:58 | CP.PCM.CON ---
History of Present Illness - History of Present Illness History of Present Illness: 50 Y/O FEMALE, HISTORY OF DM, SENT TO ER BY [employer] DR. FOX FOR ADMISSION, ADMISSION OF PICC LINE, IV ABX. PT RECENTLY TREATED FOR SURGICAL WOUND INFECTION AFTER SURGERY AT [facility] THEN ADM TO [facility] FOR IV RX OUT PT RX FAILED PT WAS RECENTLY DISCHARGED FROM [facility] 2 DAYS AGO. STATES SHE WAS ADVISED TO RETURN FOR ADMISSION AFTER EVALUATION AT [employer] OFFICE TODAY. DENIES FEVER, CHILLS, WEAKNESS/NUMBNESS, OR OTHER COMPLAINTS. - Medical History PMH: Anxiety, Arthritis (right foot 1st digit), Asthma ("MILD INTERMITTENT ASTHMA,UNCOMPLICATED"), Back Problems, Bipolar Disorder, Depression, Diabetes ( Poorly controlled), HTN, Hypercholesterolemia, Schizophrenia, Seizures (last one 07/2015), TIA (05/2012, 02/2015) Surgical History: Appendectomy (34 years ago) Review of Systems - Constitutional Constitutional: As Per HPI - EENT Eyes: absent: As Per HPI, Blind Spots, Blurred Vision, Change in Vision, Decreased Night Vision, Diplopia, Discharge, Dry Eye, Exophthalmos, Floaters, Irritation, Itchy Eyes, Loss of Peripheral Vision, Pain, Photophobia, Requires Corrective Lenses, Sees Flashes, Spots in Vision, Tunnel Vision, Other Visual Disturbances, Loss of Vision, Other Ears: absent: As Per HPI, Decreased Hearing, Ear Discharge, Ear Pain, Tinnitus, Abnormal Hearing, Disequilibrium, Dizziness, Other Nose/Mouth/Throat: absent: As Per HPI, Epistaxis, Nasal Congestion, Nasal Discharge, Nasal Obstruction, Nasal Trauma, Nose Pain, Post Nasal Drip, Sinus Pain, Sinus Pressure, Bleeding Gums, Change in Voice, Dental Pain, Dry Mouth, Dysphagia, Halitosis, Hoarsness, Lip Swelling, Mouth Lesions, Mouth Pain, Odynophagia, Sore Throat, Throat Swelling, Tongue Swelling, Facial Pain, Neck Pain, Neck Mass, Other - Breasts Breasts: absent: As Per HPI, Change in Shape, Mass, Pain, Nipple Discharge, Nipple Inversion, Skin Changes, Swelling, Other - Cardiovascular Cardiovascular: absent: As Per HPI, Acrocyanosis, Chest Pain, Chest Pain at Rest , Chest Pain with Activity, Claudication, Diaphoresis, Dyspnea, Dyspnea on Exertion, Edema, Irregular Heart Rhythm, Pain Radiating to Arm/Neck/Jaw, Leg Edema, Leg Ulcers, Lightheadedness, Orthopnea, Palpitations, Paroxysmal Nocturnal Dyspnea, Pedal Edema, Radiating Pain, Rapid Heart Rate, Slow Heart Rate, Syncope, Other - Respiratory Respiratory: absent: As Per HPI, Cough, Dyspnea, Hemoptysis, Dyspnea on Exertion , Wheezing, Snoring, Stridor, Pain on Inspiration, Chest Congestion, Excessive Mucous Production, Change in Mucous Color, Pain with Coughing, Other - Gastrointestinal Gastrointestinal: absent: As Per HPI, Abdominal Pain, Belching, Bloating, Change in Bowel Habits, Change in Stool Character, Coffee Ground Emesis, Constipation, Cramping, Diarrhea, Dyspepsia, Dysphagia, Early Satiety, Excessive Flatus, Fecal Incontinence, Heartburn, Hematemesis, Hematochezia, Loose Stools, Melena, Nausea, Odynophagia, Temesmus, Vomiting, Other - Genitourinary Genitourinary: absent: As Per HPI, Change in Urinary Stream, Difficulty Urinating, Dysuria, Flank Pain, Hematuria, Pyuria, Nocturia, Urinary Incontinence, Urinary Frequency, Urinary Hesitance, Urinary Urgency, Voiding Freq/Small Amts, Freq UTI, Hx Renal/Bladder Calculi, Hx /Renal Surgery, Bladder Distension, Other - Reproductive: Female Reproductive:Female: absent: As Per HPI, Amenorrhea, Amenorrhea/ Control, Currently Menstual, Cycle <21 Days, Cycle >35 Days, Cycle Variable, Menses 1-7 Days, Menses >/= 8 Days, Menses Variable, Cycle > 4 Weeks Between, No Menses for 6 Months, Heavy Menses, Light Menses, Normal Menses, Spotting Between Cycles , S/P Hysterectomy, Menopausal, Post Menopausal, Premenarche, Abnormal Vaginal Bleeding, Dysmenorrhea, Dyspareunia, Genital Lesions, Genital Pruritis, Pelvic Pain, Prolapse Symptoms, Sexual Dysfunction, Vaginal Discharge, Vaginal Dryness , Vaginal Odor, Vaginal Pruritis, Other - Menstruation Menstruation: absent: As Per HPI, Amenorrhea, Amenorrhea/ Control, Currently Menstual, Cycle <21 Days, Cycle >35 Days, Cycle Variable, Menses 1-7 Days, Menses >/= 8 Days, Menses Variable, Cycle > 4 Weeks Between, No Menses for 6 Months, Heavy Menses, Light Menses, Normal Menses, Spotting Between Cycles , S/P Hysterectomy, Menopausal, Post Menopausal, Premenarche, Abnormal Vaginal Bleeding, Dysmenorrhea, Other - Musculoskeletal Musculoskeletal: As Per HPI - Integumentary Integumentary: As Per HPI, Skin Pain, Wounds - Neurological Neurological: absent: As Per HPI, Abnormal Gait, Abnormal Hearing, Abnormal Movements, Abnormal Speech, Behavioral Changes, Burning Sensations, Confusion, Convulsions, Disequilibrium, Dizziness, Numbness, Focal Weakness, Frequent Falls , Headaches, Lack of Coordination, Loss of Vision, Memory Loss, Paresthesias, Radicular Pain, Restless Legs, Sensory Deficit, Syncope, Tingling, Tremor, Vertigo, Weakness, Other Visual Disturbances, Other - Psychiatric Psychiatric: absent: As Per HPI, Abnormal Sleep Pattern, Anhedonia, Anxiety, Auditory Hallucinations, Behavioral Changes, Change in Appetite, Change in Libido, Confusion, Depression, Difficulty Concentrating, Hallucinations, Homicidal Ideation, Hopelessness, Irritability, Memory Loss, Mood Swings, Panic Attacks, Paranoia, Suicidal Ideation, Visual Hallucinations, Tactile Hallucinations, Other - Endocrine Endocrine: absent: As Per HPI, Change in Body Appearance, Change in Libido, Cold Intolorance, Deepening of Voice, Excessive Sweating, Fatigue, Flushing, Heat Intolorance, Increase in Ring/Shoe/Hat Size, Palpitations, Polydipsia, Polyphagia, Polyuria, Other - Hematologic/Lymphatic Hematologic: absent: As Per HPI, Easy Bleeding, Easy Bruising, Lymphadenopathy, Other Past Patient History - Infectious Disease Hx of Infectious Diseases: None - Past Medical History & Family History Past Medical History?: Yes - Past Social History Smoking Status: Unknown If Ever Smoked - CARDIAC Hx Hypercholesterolemia: Yes Hx Hypertension: Yes - PULMONARY Hx Asthma: Yes ("MILD INTERMITTENT ASTHMA,UNCOMPLICATED") - NEUROLOGICAL Hx Seizures: Yes (last one 07/2015) Hx Transient Ischemic Attacks (TIA): Yes (05/2012, 02/2015) - HEENT Hx HEENT Problems: No Other/Comment: HX: "INFECTIVE OITIS EXTERNAL, LEFT EAR". HX: "SINUS SURGERY" - RENAL Hx Chronic Kidney Disease: No - ENDOCRINE/METABOLIC Hx Endocrine Disorders: Yes Hx Diabetes Mellitus Type 2: Yes - HEMATOLOGICAL/ONCOLOGICAL Hx Blood Disorders: Yes Hx Blood Transfusions: Yes (1993) Hx Blood Transfusion Reaction: Yes (Reaction with Fever,Vomiting.) - INTEGUMENTARY Hx Dermatological Problems: Yes Other/Comment: HX: LEFT BREAT CYST - MUSCULOSKELETAL/RHEUMATOLOGICAL Hx Arthritis: Yes (right foot 1st digit) - GASTROINTESTINAL Hx Gastrointestinal Disorders: Yes Hx Gastroesophageal Reflux: Yes - GENITOURINARY/GYNECOLOGICAL Hx Genitourinary Disorders: No - PSYCHIATRIC Hx Anxiety: Yes Hx Bipolar Disorder: Yes Hx Depression: Yes Hx Schizophrenia: Yes Hx Substance Use: No - SURGICAL HISTORY Hx Appendectomy: Yes (34 years ago) - ANESTHESIA Hx Anesthesia: Yes Hx Anesthesia Reactions: No Hx Malignant Hyperthermia: No Meds Allergies/Adverse Reactions: Allergies Allergy/AdvReac Type Severity Reaction Status Date / Time iodine dye Allergy RASH Uncoded 09/09/16 12:11 - Medications Medications: Current Medications Albuterol/Ipratropium (Duoneb 3 Mg/0.5 Mg (3 Ml) Ud) 3 ml INH RQ6 PRN PRN Reason: Shortness of Breath Alprazolam (Xanax) 1 mg PO BID [facility] Aspirin (Ecotrin) 81 mg PO DAILY [facility] Famotidine (Pepcid) 20 mg PO DAILY [facility] Heparin Sodium (Porcine) (Heparin) 5,000 units SC Q12 [facility] Piperacillin Sod/Tazobactam Sod (Zosyn 3.375 Gm Iv Premix) 3.375 gm in 50 mls @ 100 mls/hr IVPB Q6 [facility] Vancomycin HCl 1,000 mg/ (Sodium Chloride) 250 mls @ 166.6 mls/hr IVPB Q12H [facility] Insulin Detemir (Levemir) 50 unit SC TID [facility] Last Admin: 09/09/16 14:05 Dose: 50 unit Insulin Human Regular (Novolin R) 0 unit SC ACHS [facility] PRN Reason: Protocol Lamotrigine (Lamictal) 200 mg PO BID [facility] Losartan Potassium (Cozaar) 50 mg PO DAILY [facility] Metformin HCl (Glucophage) 1,000 mg PO BID [facility] Mirtazapine (Remeron) 30 mg PO HS [facility] Nicotine (Nicoderm Cq) 1 patch TD DAILY [facility] Oxycodone/Acetaminophen (Percocet 5/325 Mg Tab) 1 tab PO Q6H PRN PRN Reason: Pain, moderate (4-7) Stop: 09/12/16 12:42 Last Admin: 09/09/16 16:32 Dose: 1 tab Rosuvastatin Calcium (Crestor) 5 mg PO HS [facility] Zolpidem Tartrate (Ambien) 5 mg PO HS [facility] Physical Exam - Constitutional Appears: Non-toxic, Chronically Ill - Head Exam Head Exam: NORMOCEPHALIC - Eye Exam Eye Exam: PERRL. absent: Scleral icterus - ENT Exam ENT Exam: Mucous Membranes Dry, Normal External Ear Exam - Neck Exam Neck exam: Negative for: Lymphadenopathy - Respiratory Exam Respiratory Exam: Decreased Breath Sounds, Clear to Auscultation Bilateral - Cardiovascular Exam Cardiovascular Exam: REGULAR RHYTHM, +S1, +S2 - GI/Abdominal Exam GI & Abdominal Exam: Diminished Bowel Sounds, Soft. absent: Tenderness - Rectal Exam Rectal Exam: Deferred - Exam Exam: NORMAL INSPECTION - Extremities Exam Extremities exam: Positive for: pedal edema, tenderness, pedal pulses present. Negative for: calf tenderness - Back Exam Back exam: absent: CVA tenderness (L), CVA tenderness (R) - Neurological Exam Neurological exam: Alert, CN II-XII Intact, Oriented x3, Reflexes Normal - Psychiatric Exam Psychiatric exam: Normal Mood - Skin Skin Exam: Dry Results - Vital Signs Recent Vital Signs: Last Vital Signs Temp 98.3 F 09/09/16 16:00 Pulse 82 09/09/16 16:00 Resp 20 09/09/16 16:00 BP 121/80 09/09/16 16:00 Pulse Ox 97 09/09/16 16:00 - Labs Result Diagrams: 09/09/16 12:46 09/09/16 12:46 Labs: Laboratory Results - last 24 hr 09/09/16 09/09/16 12:46 12:46 WBC 11.1 H RBC 4.83 Hgb 13.3 Hct 41.4 MCV 85.7 MCH 27.6 MCHC 32.2 L RDW 13.0 Plt Count 208 MPV 9.7 Neut % (Auto) 55.2 Lymph % (Auto) 31.8 [place] % (Auto) 4.3 Eos % (Auto) 6.4 H Baso % (Auto) 2.3 H Neut # 6.1 Lymph # 3.5 [place] # 0.5 Eos # 0.7 Baso # 0.3 H ESR 38 H Sodium 136 Potassium 3.8 Chloride 98 Carbon Dioxide 29 Anion Gap 14 BUN 15 Creatinine 0.7 Est GFR ( Amer) > 60 Est GFR (Non-Af Amer) > 60 Random Glucose 278 H Calcium 9.1 Assessment & Plan (1) Cellulitis Status: Acute (2) Diabetic ulcer of foot associated with diabetes mellitus due to underlying condition, limited to breakdown of skin Status: Acute (3) Uncontrolled diabetes mellitus Status: Acute (4) COPD (chronic obstructive pulmonary disease) Status: Acute Priority: Medium (5) Diabetes Status: Acute - Assessment and Plan (Free Text) Assessment: CONSIDER MRI / VASCULAR EVAL IV ANTIBIOTICS TO CONT
--- NOTE | 2016-09-09 17:12 | RAD ---
HISTORY: verify right PICC COMPARISON: Comparison chest dated 12/02/2015 FINDINGS: LUNGS: Interval placement right-sided PICC line with tip in the SVC. Minor bibasilar atelectasis felt be present. Suspect minimal right apical pleural thickening pleural thickening PLEURA: No apparent pneumothorax or effusion. . CARDIOVASCULAR: Heart size within range of normal. OSSEOUS STRUCTURES: Minor multilevel degenerative spondylosis of the thoracic spine VISUALIZED UPPER ABDOMEN: Normal. OTHER FINDINGS: None. IMPRESSION: In situ right-sided PICC line with tip in the SVC as described. Suspect minor bibasilar atelectasis.
[2016-09-09] MEDS: (Novolin R) Insulin Human Regular 100 units/ml vial SC SCH ×2 (18:08→21:50)
[2016-09-09] MEDS: Piperacill/Tazo 3.375gm in Dex 3.375 GM/50 ML BAG IVPB SCH ×2 (18:10→23:49)
[2016-09-10] MEDS: Piperacill/Tazo 3.375gm in Dex 3.375 GM/50 ML BAG IVPB SCH ×3 (05:07→23:54)
[2016-09-10 06:29] LABS: BASO # 0.1 K/uL (0.0-0.2); BASO % 1.3 % (0.0-2.0); EOS # 0.7 K/uL (0.0-0.7); EOS % 7.5 % (0.0-4.0); HEMOGLOBIN 12.7 g/dL (11.0-16.0); LYMPH # 3.3 K/uL (1.0-4.3); LYMPH % 34.6 % (20.0-40.0); MEAN CELL VOLUME 85.7 fL (81.0-99.0); MEAN CORPUSCULAR HEMOGLOBIN 27.8 pg (27.0-31.0); MEAN CORPUSCULAR HGB CONC 32.4 g/dL (33.0-37.0); MEAN PLATELET VOLUME 9.8 fL (7.2-11.7); MONO # 0.6 K/uL (0.0-0.8); MONO % 6.5 % (0.0-10.0); NEUT # 4.9 K/uL (1.8-7.0); NEUT % 50.1 % (50.0-75.0); RBC 4.57 Mil/uL (3.80-5.20); RED CELL DISTRIBUTION WIDTH 13.5 % (11.5-14.5); WHITE BLOOD COUNT 9.7 K/uL (4.8-10.8)
[2016-09-10 07:34] LABS: ALBUMIN 3.1 g/dL (3.5-5.0)
[2016-09-10 07:37] LABS: ALB/GLOB RATIO 1.1 (1.0-2.1); AST/SGOT 58 U/L (14-36); BLOOD UREA NITROGEN 18 mg/dL (7-17); GFR AFRICAN-AMERICAN > 60; GFR NON-AFRICAN AMERICAN > 60
[2016-09-10 07:38] LABS: ALT/SGPT 47 U/L (9-52); CALCIUM 8.8 mg/dl (8.6-10.4)
[2016-09-10] MEDS: (Novolin R) Insulin Human Regular 100 units/ml vial SC SCH ×3 (08:42→22:34)
[2016-09-10] MEDS: Insulin Detemir 100 units/ml Vial (Levemir) SC SCH (09:26)
[2016-09-10] MEDS: Oxycodone/Acetaminophen 5/325 mg Tab PO PRN (09:28)
--- NOTE | 2016-09-10 22:43 | CP.PCM.PN ---
Subjective - Date & Time of Evaluation Date of Evaluation: 09/10/16 Time of Evaluation: 08:50 - Subjective Subjective: PGY2 Medicine Note- Dr. Delcid's Service (covering Dr. Coates) Patient seen and examined this AM. In no acute distress. Patient complains of warmth and swelling below the Right ankle. PICC in place for chcf antibiotics. Reports blood sugar is better controlled today. Patient denies fever, chills, nausea, or any additional complaints. Objective - Vital Signs/Intake and Output Vital Signs (last 24 hours): Temp Pulse Resp BP Pulse Ox 98.3 F 89 20 117/75 97 09/10/16 08:00 09/10/16 08:00 09/10/16 08:00 09/10/16 08:00 09/10/16 08:00 - Medications Medications: Current Medications Albuterol/Ipratropium (Duoneb 3 Mg/0.5 Mg (3 Ml) Ud) 3 ml INH RQ6 PRN PRN Reason: Shortness of Breath Alprazolam (Xanax) 1 mg PO BID [facility] Last Admin: 09/10/16 09:26 Dose: 1 mg Aspirin (Ecotrin) 81 mg PO DAILY [facility] Last Admin: 09/10/16 09:26 Dose: 81 mg Famotidine (Pepcid) 20 mg PO DAILY [facility] Last Admin: 09/10/16 12:24 Dose: 20 mg Heparin Sodium (Porcine) (Heparin) 5,000 units SC Q12 [facility] Last Admin: 09/10/16 22:33 Dose: 5,000 units Piperacillin Sod/Tazobactam Sod (Zosyn 3.375 Gm Iv Premix) 3.375 gm in 50 mls @ 100 mls/hr IVPB Q6 [facility] Last Admin: 09/10/16 12:26 Dose: 100 mls/hr Vancomycin HCl 1,000 mg/ (Sodium Chloride) 250 mls @ 166.6 mls/hr IVPB Q12H [facility] Last Admin: 09/10/16 12:29 Dose: 166.6 mls/hr Insulin Detemir (Levemir) 50 unit SC TID [facility] Last Admin: 09/10/16 09:26 Dose: 50 unit Insulin Human Regular (Novolin R) 0 unit SC ACHS [facility] PRN Reason: Protocol Last Admin: 09/10/16 22:34 Dose: Not Given Lamotrigine (Lamictal) 200 mg PO BID [facility] Last Admin: 09/10/16 09:28 Dose: 200 mg Losartan Potassium (Cozaar) 50 mg PO DAILY [facility] Last Admin: 09/10/16 09:26 Dose: 50 mg Metformin HCl (Glucophage) 1,000 mg PO BID [facility] Last Admin: 09/10/16 09:39 Dose: 1,000 mg Mirtazapine (Remeron) 30 mg PO [facility] Last Admin: 09/10/16 22:34 Dose: 30 mg Nicotine (Nicoderm Cq) 1 patch TD DAILY [facility] Last Admin: 09/10/16 09:27 Dose: 1 patch Oxycodone/Acetaminophen (Percocet 5/325 Mg Tab) 1 tab PO Q6H PRN PRN Reason: Pain, moderate (4-7) Stop: 09/12/16 12:42 Last Admin: 09/10/16 09:28 Dose: 1 tab Rosuvastatin Calcium (Crestor) 5 mg PO [facility] Last Admin: 09/10/16 22:34 Dose: 5 mg Zolpidem Tartrate (Ambien) 5 mg PO [facility] Last Admin: 09/10/16 22:34 Dose: 5 mg - Labs Labs: 09/10/16 06:18 09/10/16 06:18 - Additional Findings Additional findings: - Constitutional Appears: Non-toxic, No Acute Distress - Head Exam Head Exam: ATRAUMATIC, NORMOCEPHALIC - Eye Exam Eye Exam: EOMI - ENT Exam ENT Exam: Mucous Membranes Moist - Respiratory Exam Respiratory Exam: Clear to Ausculation Bilateral, NORMAL BREATHING PATTERN - Cardiovascular Exam Cardiovascular Exam: +S1, +S2 - GI/Abdominal Exam GI & Abdominal Exam: Soft, Normal Bowel Sounds. absent: Tenderness - Extremities Exam Additional comments: right foot wrapped in clean gauze, foot erythematous, warm to touch; left hallux wrapped in clean gauze - Neurological Exam Neurological Exam: Alert, Awake - Psychiatric Exam Psychiatric exam: Normal Affect - Skin Skin Exam: Warm, Dry Assessment and Plan - Assessment and Plan (Free Text) Assessment: Right foot infection s/p right foot surgery Status: Acute 09/10: PICC in place, IV Abx administered. foot culture pending. antibiotics given in ER, will continue vancomycin/ zosyn PICC ordered percocet 5/325 i tab q4prn Podiatry Consult, Dr. Lieberman, help appreciated. ID Consulted, Dr. Wallace, help appreciated Uncontrolled diabetes mellitus Status: Acute 09/10: glucose 203, continue to monitor. continue Levemir 50mg SC TID Continue metformin 1000mg PO BID - accuchecks ACHS - ISS COPD (chronic obstructive pulmonary disease) Status: Acute Albuterol/Ipratropium (Duoneb 3 Mg/0.5 Mg (3 Ml) Ud) 3 ml INH RQ6 PRN HTN (hypertension) Status: Acute 09/10: BP 117/75, continue to monitor. Continue home meds: Aspirin (Ecotrin) 81 mg PO DAILY [facility] Losartan Potassium (Cozaar) 50 mg PO DAILY [facility] Rosuvastatin Calcium (Crestor) 5 mg PO HS [facility] Insomnia continue home meds: Zolpidem Tartrate (Ambien) 5 mg PO HS [facility] Bipolar Disorder psych consulted on previous admission continue home meds: Lamotrigine (Lamictal) 200 mg PO BID [facility] Mirtazapine (Remeron) 30 mg PO HS [facility] xanax 1mg PO BID
[2016-09-11] MEDS: Piperacill/Tazo 3.375gm in Dex 3.375 GM/50 ML BAG IVPB SCH ×3 (05:32→17:39)
[2016-09-11 07:26] LABS: BASO # 0.2 K/uL (0.0-0.2); BASO % 2.1 % (0.0-2.0); EOS # 0.7 K/uL (0.0-0.7); EOS % 7.4 % (0.0-4.0); HEMOGLOBIN 12.6 g/dL (11.0-16.0); LYMPH # 3.4 K/uL (1.0-4.3); LYMPH % 37.6 % (20.0-40.0); MEAN CELL VOLUME 85.8 fL (81.0-99.0); MEAN CORPUSCULAR HEMOGLOBIN 27.7 pg (27.0-31.0); MEAN CORPUSCULAR HGB CONC 32.3 g/dL (33.0-37.0); MEAN PLATELET VOLUME 9.7 fL (7.2-11.7); MONO # 0.6 K/uL (0.0-0.8); MONO % 6.2 % (0.0-10.0); NEUT # 4.2 K/uL (1.8-7.0); NEUT % 46.7 % (50.0-75.0); NRBC % 0.1 % (0.0-2.0); RBC 4.54 Mil/uL (3.80-5.20)
[2016-09-11 07:34] LABS: ALBUMIN 3.2 g/dL (3.5-5.0)
[2016-09-11 07:37] LABS: AST/SGOT 63 U/L (14-36); BLOOD UREA NITROGEN 15 mg/dL (7-17); GFR AFRICAN-AMERICAN > 60; GFR NON-AFRICAN AMERICAN > 60
[2016-09-11 07:38] LABS: ALT/SGPT 59 U/L (9-52); CALCIUM 9.1 mg/dl (8.6-10.4)
[2016-09-11 07:58] LABS: ALB/GLOB RATIO 1.1 (1.0-2.1)
--- NOTE | 2016-09-11 08:14 | CP.PCM.PN ---
Subjective - Date & Time of Evaluation Date of Evaluation: 09/10/16 Time of Evaluation: 12:00 - Subjective Subjective: Patient is a 50 year old female seen at bedside today after being readmitted from Dr. Deras's office for an infection 1 week s/p right foot ostectomy. Patient states that when she went to Dr. Deras's office there was pain and erythema to the right medial forefoot as well as burning pain and sensations that traveled proximally to the level of the right hip. Patient admits to being previously hospitalized for same infection. Patient denies any further pedal complaints at this time. Patient denies N/V/F/C/CP/SOB. Objective - Vital Signs/Intake and Output Vital Signs (last 24 hours): Temp Pulse Resp BP Pulse Ox 97.8 F 82 20 111/72 96 09/11/16 00:13 09/11/16 00:13 09/11/16 00:13 09/11/16 00:13 09/11/16 00:13 Intake and Output: 09/11/16 09/11/16 06:59 18:59 Intake Total 450 590 Balance 450 590 - Medications Medications: Current Medications Albuterol/Ipratropium (Duoneb 3 Mg/0.5 Mg (3 Ml) Ud) 3 ml INH RQ6 PRN PRN Reason: Shortness of Breath Alprazolam (Xanax) 1 mg PO BID [facility] Last Admin: 09/10/16 09:26 Dose: 1 mg Aspirin (Ecotrin) 81 mg PO DAILY [facility] Last Admin: 09/10/16 09:26 Dose: 81 mg Famotidine (Pepcid) 20 mg PO DAILY [facility] Last Admin: 09/10/16 12:24 Dose: 20 mg Heparin Sodium (Porcine) (Heparin) 5,000 units SC Q12 [facility] Last Admin: 09/10/16 22:33 Dose: 5,000 units Piperacillin Sod/Tazobactam Sod (Zosyn 3.375 Gm Iv Premix) 3.375 gm in 50 mls @ 100 mls/hr IVPB Q6 [facility] Last Admin: 09/11/16 05:32 Dose: 100 mls/hr Vancomycin HCl 1,000 mg/ (Sodium Chloride) 250 mls @ 166.6 mls/hr IVPB Q12H [facility] Last Admin: 09/11/16 00:30 Dose: 166.6 mls/hr Insulin Detemir (Levemir) 50 unit SC TID [facility] Last Admin: 09/10/16 09:26 Dose: 50 unit Insulin Human Regular (Novolin R) 0 unit SC ACHS [facility] PRN Reason: Protocol Last Admin: 09/10/16 22:34 Dose: Not Given Lamotrigine (Lamictal) 200 mg PO BID [facility] Last Admin: 09/10/16 09:28 Dose: 200 mg Losartan Potassium (Cozaar) 50 mg PO DAILY [facility] Last Admin: 09/10/16 09:26 Dose: 50 mg Metformin HCl (Glucophage) 1,000 mg PO BID [facility] Last Admin: 09/10/16 09:39 Dose: 1,000 mg Mirtazapine (Remeron) 30 mg PO HS [facility] Last Admin: 09/10/16 22:34 Dose: 30 mg Nicotine (Nicoderm Cq) 1 patch TD DAILY [facility] Last Admin: 09/10/16 09:27 Dose: 1 patch Oxycodone/Acetaminophen (Percocet 5/325 Mg Tab) 1 tab PO Q6H PRN PRN Reason: Pain, moderate (4-7) Stop: 09/12/16 12:42 Last Admin: 09/10/16 09:28 Dose: 1 tab Rosuvastatin Calcium (Crestor) 5 mg PO [facility] Last Admin: 09/10/16 22:34 Dose: 5 mg Zolpidem Tartrate (Ambien) 5 mg PO [facility] Last Admin: 09/10/16 22:34 Dose: 5 mg - Labs Labs: 09/11/16 07:17 09/11/16 07:17 - Constitutional Appears: Well, Non-toxic, No Acute Distress - Extremities Exam Additional comments: RLE exam: Vasc: DP/PT pulses palpable 2/4. CFT to digits 1-5 < 3 seconds. TG warm to warm from proximal to distal. Mild non-pitting edema noted to right medial forefoot and hallux. Derm: Incision sites noted along length of first ray from base of metatarsal to level of proximal phalanx. Second incision site noted at level of distal phalanx. All incision sites well coapted, sutures intact and no signs of dehiscence noted. No malodor, puruelent drainage, erythema or other clinical signs of infection present Neuro: Epicritic and protective sensation grossly intact MSK: POP noted grossly to right foot. ROM limited due to post-operative nature and infection - Neurological Exam Neurological Exam: Alert, Awake, Oriented x3 - Psychiatric Exam Psychiatric exam: Normal Affect, Normal Mood Assessment and Plan - Assessment and Plan (Free Text) Assessment: 50 year old female with infection at right first ray s/p right foot surgery Plan: Patient seen and evaluated at bedside Vitals and charts reviewed; ESR 38, WBC 9.7, Afebrile Plan discussed with Dr. Deras in detail Still awaiting nicotine result Podiatry plans to DC patient to [facility] ([facility]) Dr. Deras will f/u at [facility] Patient stable per podiatry
[2016-09-11] MEDS: (Novolin R) Insulin Human Regular 100 units/ml vial SC SCH ×4 (08:52→22:03)
[2016-09-11] MEDS: Insulin Detemir 100 units/ml Vial (Levemir) SC SCH ×3 (11:06→17:41)
[2016-09-11] MEDS ORDERED: Potassium Chloride 20 mEq ER Tab PO ONE (12:30)
[2016-09-11] MEDS: Oxycodone/Acetaminophen 5/325 mg Tab PO PRN (14:55)
--- NOTE | 2016-09-11 15:13 | CP.PCM.PN ---
Subjective - Date & Time of Evaluation Date of Evaluation: 09/11/16 Time of Evaluation: 11:00 - Subjective Subjective: rx for om s/p surgery at [facility] right foot cont rx for 6 weeks at [facility] Objective - Vital Signs/Intake and Output Vital Signs (last 24 hours): Temp Pulse Resp BP Pulse Ox 97 F L 69 20 112/72 97 09/11/16 08:00 09/11/16 08:00 09/11/16 08:00 09/11/16 08:00 09/11/16 08:00 Intake and Output: 09/11/16 09/11/16 06:59 18:59 Intake Total 450 590 Balance 450 590 - Medications Medications: Current Medications Albuterol/Ipratropium (Duoneb 3 Mg/0.5 Mg (3 Ml) Ud) 3 ml INH RQ6 PRN PRN Reason: Shortness of Breath Alprazolam (Xanax) 1 mg PO BID [facility] Last Admin: 09/11/16 11:09 Dose: Not Given Aspirin (Ecotrin) 81 mg PO DAILY [facility] Last Admin: 09/11/16 11:07 Dose: 81 mg Famotidine (Pepcid) 20 mg PO DAILY [facility] Last Admin: 09/11/16 11:07 Dose: 20 mg Heparin Sodium (Porcine) (Heparin) 5,000 units SC Q12 [facility] Last Admin: 09/11/16 11:06 Dose: 5,000 units Piperacillin Sod/Tazobactam Sod (Zosyn 3.375 Gm Iv Premix) 3.375 gm in 50 mls @ 100 mls/hr IVPB Q6 [facility] Last Admin: 09/11/16 12:47 Dose: 100 mls/hr Vancomycin HCl 1,000 mg/ (Sodium Chloride) 250 mls @ 166.6 mls/hr IVPB Q12H [facility] Last Admin: 09/11/16 12:39 Dose: 166.6 mls/hr Insulin Detemir (Levemir) 50 unit SC TID [facility] Last Admin: 09/11/16 14:07 Dose: 50 unit Insulin Human Regular (Novolin R) 0 unit SC ACHS [facility] PRN Reason: Protocol Last Admin: 09/11/16 12:35 Dose: 3 unit Lamotrigine (Lamictal) 200 mg PO BID [facility] Last Admin: 07/02/17 11:08 Dose: 200 mg Losartan Potassium (Cozaar) 50 mg PO DAILY [facility] Last Admin: 09/11/16 11:18 Dose: 50 mg Metformin HCl (Glucophage) 1,000 mg PO BID [facility] Last Admin: 09/11/16 11:07 Dose: 1,000 mg Mirtazapine (Remeron) 30 mg PO [facility] Last Admin: 09/10/16 22:34 Dose: 30 mg Nicotine (Nicoderm Cq) 1 patch TD DAILY [facility] Last Admin: 09/11/16 11:08 Dose: 1 patch Oxycodone/Acetaminophen (Percocet 5/325 Mg Tab) 1 tab PO Q6H PRN PRN Reason: Pain, moderate (4-7) Stop: 09/12/16 12:42 Last Admin: 09/11/16 14:55 Dose: 1 tab Rosuvastatin Calcium (Crestor) 5 mg PO [facility] Last Admin: 09/10/16 22:34 Dose: 5 mg Zolpidem Tartrate (Ambien) 5 mg PO [facility] Last Admin: 09/10/16 22:34 Dose: 5 mg - Labs Labs: 09/11/16 07:17 09/11/16 07:17 - Constitutional Appears: Non-toxic, Cachectic, Chronically Ill - Head Exam Head Exam: NORMOCEPHALIC - Eye Exam Eye Exam: PERRL - ENT Exam ENT Exam: Mucous Membranes Dry, Normal External Ear Exam - Neck Exam Neck Exam: absent: Lymphadenopathy - Respiratory Exam Respiratory Exam: Decreased Breath Sounds - Cardiovascular Exam Cardiovascular Exam: REGULAR RHYTHM - GI/Abdominal Exam GI & Abdominal Exam: Distended, Soft - Rectal Exam Rectal Exam: Deferred Assessment and Plan (1) Cellulitis Status: Acute (2) Diabetic ulcer of foot associated with diabetes mellitus due to underlying condition, limited to breakdown of skin Status: Acute (3) Uncontrolled diabetes mellitus Status: Acute (4) COPD (chronic obstructive pulmonary disease) Status: Acute (5) Diabetes Status: Acute
--- NOTE | 2016-09-11 17:38 | CP.PCM.PN ---
Subjective - Date & Time of Evaluation Date of Evaluation: 09/11/16 Time of Evaluation: 09:20 - Subjective Subjective: PGY2 Medicine Note- Dr. Delcid's Service (covering Dr. Coates) Patient seen and examined this AM. Recently hospitalized for same infection. 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 Patient reports right foot pain is well controlled. Patient reports experiencing lower than usual blood sugar overnight. Patient denies fever, chills, nausea, vomiting, or any additional complaints. Objective - Vital Signs/Intake and Output Vital Signs (last 24 hours): Temp Pulse Resp BP Pulse Ox 98.7 F 88 20 134/85 98 09/11/16 16:00 09/11/16 16:00 09/11/16 16:00 09/11/16 16:00 09/11/16 16:00 Intake and Output: 09/11/16 09/11/16 06:59 18:59 Intake Total 450 1390 Balance 450 1390 - Medications Medications: Current Medications Albuterol/Ipratropium (Duoneb 3 Mg/0.5 Mg (3 Ml) Ud) 3 ml INH RQ6 PRN PRN Reason: Shortness of Breath Alprazolam (Xanax) 1 mg PO BID [facility] Last Admin: 09/11/16 16:29 Dose: Not Given Aspirin (Ecotrin) 81 mg PO DAILY [facility] Last Admin: 09/11/16 11:07 Dose: 81 mg Famotidine (Pepcid) 20 mg PO DAILY [facility] Last Admin: 09/11/16 11:07 Dose: 20 mg Heparin Sodium (Porcine) (Heparin) 5,000 units SC Q12 [facility] Last Admin: 09/11/16 11:06 Dose: 5,000 units Piperacillin Sod/Tazobactam Sod (Zosyn 3.375 Gm Iv Premix) 3.375 gm in 50 mls @ 100 mls/hr IVPB Q6 [facility] Last Admin: 09/11/16 12:47 Dose: 100 mls/hr Vancomycin HCl 1,000 mg/ (Sodium Chloride) 250 mls @ 166.6 mls/hr IVPB Q12H [facility] Last Admin: 09/11/16 12:39 Dose: 166.6 mls/hr Insulin Detemir (Levemir) 50 unit SC TID [facility] Last Admin: 09/11/16 14:07 Dose: 50 unit Insulin Human Regular (Novolin R) 0 unit SC ACHS [facility] PRN Reason: Protocol Last Admin: 09/11/16 12:35 Dose: 3 unit Lamotrigine (Lamictal) 200 mg PO BID [facility] Last Admin: 09/11/16 11:08 Dose: 200 mg Losartan Potassium (Cozaar) 50 mg PO DAILY [facility] Last Admin: 09/11/16 11:18 Dose: 50 mg Metformin HCl (Glucophage) 1,000 mg PO BID [facility] Last Admin: 09/11/16 11:07 Dose: 1,000 mg Mirtazapine (Remeron) 30 mg PO [facility] Last Admin: 09/10/16 22:34 Dose: 30 mg Nicotine (Nicoderm Cq) 1 patch TD DAILY [facility] Last Admin: 09/11/16 11:08 Dose: 1 patch Oxycodone/Acetaminophen (Percocet 5/325 Mg Tab) 1 tab PO Q6H PRN PRN Reason: Pain, moderate (4-7) Stop: 09/12/16 12:42 Last Admin: 09/11/16 14:55 Dose: 1 tab Rosuvastatin Calcium (Crestor) 5 mg PO [facility] Last Admin: 09/10/16 22:34 Dose: 5 mg Zolpidem Tartrate (Ambien) 5 mg PO [facility] Last Admin: 09/10/16 22:34 Dose: 5 mg - Labs Labs: 09/11/16 07:17 09/11/16 07:17 - Additional Findings Additional findings: - Constitutional Appears: Non-toxic, No Acute Distress - Head Exam Head Exam: ATRAUMATIC, NORMOCEPHALIC - Eye Exam Eye Exam: EOMI - ENT Exam ENT Exam: Mucous Membranes Moist - Respiratory Exam Respiratory Exam: Clear to Ausculation Bilateral, NORMAL BREATHING PATTERN - Cardiovascular Exam Cardiovascular Exam: +S1, +S2 - GI/Abdominal Exam GI & Abdominal Exam: Soft, Normal Bowel Sounds. absent: Tenderness - Extremities Exam Additional comments: right foot wrapped in clean gauze, foot erythematous, warm to touch left hallux wrapped in clean gauze - Neurological Exam Neurological Exam: Alert, Awake - Psychiatric Exam Psychiatric exam: Normal Affect - Skin Skin Exam: Warm Assessment and Plan - Assessment and Plan (Free Text) Assessment: Right foot infection s/p right foot surgery Status: Acute 09/11: PICC in place. Continue IV Abx. antibiotics given in ER, will continue vancomycin/ zosyn PICC ordered percocet 5/325 i tab q4prn Podiatry Consult, Dr. Lieberman, help appreciated. ID Consulted, Dr. Wallace, help appreciated Uncontrolled diabetes mellitus Status: Acute 09/11: Blood sugar typically high at home, and now better controlled, sometimes low. Likely due to poor diet habits at home versus Carb consistent diet in hospital. Change to Levemir 65u ACBHS. STOP Levemir 50mg SC TID Continue metformin 1000mg PO BID - accuchecks ACHS - ISS COPD (chronic obstructive pulmonary disease) Status: Acute Albuterol/Ipratropium (Duoneb 3 Mg/0.5 Mg (3 Ml) Ud) 3 ml INH RQ6 PRN HTN (hypertension) Status: Acute 09/11: 112/72, monitor. Aspirin (Ecotrin) 81 mg PO DAILY [facility] Losartan Potassium (Cozaar) 50 mg PO DAILY [facility] Rosuvastatin Calcium (Crestor) 5 mg PO HS [facility] Insomnia continue home meds: Zolpidem Tartrate (Ambien) 5 mg PO HS [facility] Bipolar Disorder psych consulted on previous admission continue home meds: Lamotrigine (Lamictal) 200 mg PO BID [facility] Mirtazapine (Remeron) 30 mg PO HS [facility] xanax 1mg PO BID
[2016-09-12] MEDS: Piperacill/Tazo 3.375gm in Dex 3.375 GM/50 ML BAG IVPB SCH ×5 (00:17→23:45)
[2016-09-12 06:21] LABS: BASO # 0.1 K/uL (0.0-0.2); BASO % 1.8 % (0.0-2.0); EOS # 0.6 K/uL (0.0-0.7); EOS % 7.4 % (0.0-4.0); HEMOGLOBIN 11.9 g/dL (11.0-16.0); LYMPH % 37.6 % (20.0-40.0); MEAN CELL VOLUME 86.2 fL (81.0-99.0); MEAN CORPUSCULAR HEMOGLOBIN 27.9 pg (27.0-31.0); MEAN CORPUSCULAR HGB CONC 32.4 g/dL (33.0-37.0); MEAN PLATELET VOLUME 9.9 fL (7.2-11.7); MONO # 0.5 K/uL (0.0-0.8); MONO % 6.1 % (0.0-10.0); NEUT # 3.7 K/uL (1.8-7.0); NEUT % 47.1 % (50.0-75.0); RBC 4.28 Mil/uL (3.80-5.20); RED CELL DISTRIBUTION WIDTH 13.3 % (11.5-14.5); WHITE BLOOD COUNT 7.9 K/uL (4.8-10.8)
[2016-09-12 06:26] LABS: ALBUMIN 3.1 g/dL (3.5-5.0)
[2016-09-12 06:29] LABS: ALT/SGPT 78 U/L (9-52); AST/SGOT 81 U/L (14-36); BLOOD UREA NITROGEN 20 mg/dL (7-17); CALCIUM 8.4 mg/dl (8.6-10.4); GFR AFRICAN-AMERICAN > 60; GFR NON-AFRICAN AMERICAN > 60
[2016-09-12 06:39] LABS: ALB/GLOB RATIO 1.1 (1.0-2.1)
--- NOTE | 2016-09-12 08:20 | CP.PCM.PN ---
Subjective - Date & Time of Evaluation Date of Evaluation: 09/12/16 Time of Evaluation: 08:18 - Subjective Subjective: 50 year old female seen at bedside today for an infection 1 week s/p right foot ostectomy. Patient states that when she went to Dr. Deras's office there was pain and erythema to the right medial forefoot as well as burning pain and sensations that traveled proximally to the level of the right hip. Patient denies any acute events overnight. Patient denies any further pedal complaints at this time. Patient denies N/V/F/C/CP/SOB. Objective - Vital Signs/Intake and Output Vital Signs (last 24 hours): Temp Pulse Resp BP Pulse Ox 97.4 F L 87 20 115/76 95 09/12/16 00:33 09/12/16 00:33 09/12/16 00:33 09/12/16 00:33 09/12/16 00:33 Intake and Output: 09/12/16 09/12/16 06:59 18:59 Intake Total 450 Balance 450 - Medications Medications: Current Medications Albuterol/Ipratropium (Duoneb 3 Mg/0.5 Mg (3 Ml) Ud) 3 ml INH RQ6 PRN PRN Reason: Shortness of Breath Alprazolam (Xanax) 1 mg PO Q12H [facility] Aspirin (Ecotrin) 81 mg PO DAILY [facility] Last Admin: 09/11/16 11:07 Dose: 81 mg Famotidine (Pepcid) 20 mg PO DAILY [facility] Last Admin: 09/11/16 11:07 Dose: 20 mg Heparin Sodium (Porcine) (Heparin) 5,000 units SC Q12 [facility] Last Admin: 09/11/16 22:04 Dose: 5,000 units Piperacillin Sod/Tazobactam Sod (Zosyn 3.375 Gm Iv Premix) 3.375 gm in 50 mls @ 100 mls/hr IVPB Q6 [facility] Last Admin: 09/12/16 05:28 Dose: 100 mls/hr Vancomycin HCl 1,000 mg/ (Sodium Chloride) 250 mls @ 166.6 mls/hr IVPB Q12H [facility] Last Admin: 09/12/16 01:58 Dose: 166.6 mls/hr Insulin Detemir (Levemir) 65 unit SC ACBHS [facility] Insulin Human Regular (Novolin R) 0 unit SC ACHS [facility] PRN Reason: Protocol Last Admin: 09/11/16 22:03 Dose: Not Given Lamotrigine (Lamictal) 200 mg PO BID [facility] Last Admin: 09/11/16 17:37 Dose: 200 mg Losartan Potassium (Cozaar) 50 mg PO DAILY [facility] Last Admin: 09/11/16 11:18 Dose: 50 mg Metformin HCl (Glucophage) 1,000 mg PO BID [facility] Last Admin: 09/11/16 17:38 Dose: 1,000 mg Mirtazapine (Remeron) 30 mg PO [facility] Last Admin: 09/11/16 22:03 Dose: 30 mg Nicotine (Nicoderm Cq) 1 patch TD DAILY [facility] Last Admin: 09/11/16 11:08 Dose: 1 patch Oxycodone/Acetaminophen (Percocet 5/325 Mg Tab) 1 tab PO Q6H PRN PRN Reason: Pain, moderate (4-7) Stop: 09/12/16 12:42 Last Admin: 09/11/16 14:55 Dose: 1 tab Rosuvastatin Calcium (Crestor) 5 mg PO [facility] Last Admin: 09/11/16 22:02 Dose: 5 mg Zolpidem Tartrate (Ambien) 5 mg PO [facility] - Labs Labs: 09/12/16 06:00 09/12/16 06:00 - Constitutional Appears: Well, Non-toxic, No Acute Distress - Extremities Exam Additional comments: RLE exam: Vasc: DP/PT pulses palpable 2/4. CFT to digits 1-5 < 3 seconds. TG warm to warm from proximal to distal. Mild non-pitting edema noted to right medial forefoot and hallux. Derm: Incision sites noted along length of first ray from base of metatarsal to level of proximal phalanx. Second incision site noted at level of distal phalanx. All incision sites well coapted, sutures intact and no signs of dehiscence noted. No malodor, puruelent drainage, erythema or other clinical signs of infection present Neuro: Epicritic and protective sensation grossly intact MSK: POP noted grossly to right foot. ROM limited due to post-operative nature and infection - Neurological Exam Neurological Exam: Alert, Awake, Oriented x3 - Psychiatric Exam Psychiatric exam: Normal Affect, Normal Mood Assessment and Plan - Assessment and Plan (Free Text) Assessment: 50 year old female with infection at right first ray s/p right foot surgery Plan: Patient seen and evaluated at bedside Vitals and charts reviewed; ESR 38, WBC 7.9, Afebrile Plan discussed with Dr. Deras in detail Still awaiting nicotine result applied flo CAMACHO to foot b/l Podiatry plans to DC patient to [facility] ([facility]) Dr. Deras will f/u at [facility] Patient stable per podiatry
[2016-09-12] MEDS: (Novolin R) Insulin Human Regular 100 units/ml vial SC SCH ×4 (08:22→22:56)
[2016-09-12] MEDS: Insulin Detemir 100 units/ml Vial (Levemir) SC SCH ×4 (08:22→21:58)
--- NOTE | 2016-09-12 10:54 | VASCLAB ---
STUDY DESCRIPTION: HISTORY: PVD diabetic foot ulceration PRIORS: None. TECHNIQUE: Pulse volume recording waveforms and segmental pressures of bilateral lower extremities at multiple levels were obtained. Ankle Brachial Indices (ABIs) were calculated. Report prepared by Sloan Sepulveda RVT RIGHT LOWER EXTREMITY: * Brachial artery: Pressure - mmHg. * High thigh: Pressure - 185 mmHg: Ratio - 1.47: PVR waveform - Pulsatile * Low thigh: Pressure - 183 mmHg: Ratio - 1.45 PVR waveform: Pulsatile * Calf: Pressure - 153 mmHg: Ratio - 1.21 PVR waveform: Pulsatile * Posterior tibial Artery: Pressure - 161 mmHg: Ratio - 1.28 PVR waveform: Pulsatile * Dorsalis pedis Artery: Pressure - 167 mmHg: Ratio - 1.33 PVR waveform: Pulsatile * Great toe: Pressure - omitted mmHg: Ratio - PVR waveform: Pulsatile Ankle brachial index (ALVA): 1.33 LEFT LOWER EXTREMITY: * Brachial artery: Pressure - 126 mmHg. * High thigh: Pressure - 186 mmHg: Ratio - 1.48: PVR waveform - Pulsatile * Low thigh: Pressure - 180 mmHg: Ratio - 1.43 PVR waveform: Pulsatile * Calf: Pressure - 162 mmHg: Ratio - 1.29 PVR waveform: Pulsatile * Posterior tibial Artery: Pressure - 153 mmHg: Ratio - 1.21 PVR waveform: Pulsatile * Dorsalis pedis Artery: Pressure - 136 mmHg: Ratio - 1.08 PVR waveform: Pulsatile * Great toe: Pressure - omitted mmHg: Ratio - PVR waveform: Pulsatile Ankle brachial index (ALVA): 1.21 OTHER FINDINGS: IMPRESSION: Right: There was evidence of mild infrapopliteal arterial occlusive disease combine with slightly medial calcification and artifactually elevated ALVA. Left: There was evidence of mild infrapopliteal arterial occlusive disease combine with slightly medial calcification and artifactually elevated ALVA
[2016-09-12] MEDS: oxyCODONE 5 mg Immediate Release Tab PO PRN (11:03)
--- NOTE | 2016-09-12 15:03 | CP.PCM.PN ---
Subjective - Date & Time of Evaluation Date of Evaluation: 09/12/16 Time of Evaluation: 08:00 - Subjective Subjective: s/p osteotomy in surgicenter infection post op iv rx in progress Objective - Vital Signs/Intake and Output Vital Signs (last 24 hours): Temp Pulse Resp BP Pulse Ox 97.5 F L 72 20 100/68 96 09/12/16 08:00 09/12/16 14:46 09/12/16 08:00 09/12/16 14:46 09/12/16 14:46 Intake and Output: 09/12/16 09/12/16 06:59 18:59 Intake Total 800 Output Total 1500 Balance 800 -1500 - Medications Medications: Current Medications Albuterol/Ipratropium (Duoneb 3 Mg/0.5 Mg (3 Ml) Ud) 3 ml INH RQ6 PRN PRN Reason: Shortness of Breath Alprazolam (Xanax) 1 mg PO Q12H [facility] Last Admin: 09/12/16 09:26 Dose: Not Given Aspirin (Ecotrin) 81 mg PO DAILY [facility] Last Admin: 09/12/16 09:24 Dose: 81 mg Famotidine (Pepcid) 20 mg PO DAILY [facility] Last Admin: 09/12/16 09:24 Dose: 20 mg Heparin Sodium (Porcine) (Heparin) 5,000 units SC Q12 [facility] Last Admin: 09/12/16 09:24 Dose: 5,000 units Piperacillin Sod/Tazobactam Sod (Zosyn 3.375 Gm Iv Premix) 3.375 gm in 50 mls @ 100 mls/hr IVPB Q6 [facility] Last Admin: 09/12/16 11:27 Dose: 100 mls/hr Vancomycin HCl 1,000 mg/ (Sodium Chloride) 250 mls @ 166.6 mls/hr IVPB Q12H [facility] Last Admin: 09/12/16 12:31 Dose: 166.6 mls/hr Insulin Detemir (Levemir) 65 unit SC ACBHS [facility] Insulin Human Regular (Novolin R) 0 unit SC ACHS [facility] PRN Reason: Protocol Last Admin: 09/12/16 12:12 Dose: Not Given Lamotrigine (Lamictal) 200 mg PO BID [facility] Last Admin: 09/12/16 09:25 Dose: 200 mg Losartan Potassium (Cozaar) 50 mg PO DAILY [facility] Last Admin: 09/12/16 09:24 Dose: 50 mg Metformin HCl (Glucophage) 1,000 mg PO BID [facility] Last Admin: 09/12/16 09:24 Dose: 1,000 mg Mirtazapine (Remeron) 30 mg PO [facility] Last Admin: 09/11/16 22:03 Dose: 30 mg Nicotine (Nicoderm Cq) 1 patch TD DAILY [facility] Last Admin: 09/12/16 09:25 Dose: 1 patch Oxycodone HCl (Oxycodone Immediate Release Tab) 5 mg PO Q6 PRN PRN Reason: Pain, severe (8-10) Last Admin: 09/12/16 11:03 Dose: 5 mg Rosuvastatin Calcium (Crestor) 5 mg PO [facility] Last Admin: 09/11/16 22:02 Dose: 5 mg Saccharomyces Boulardii (Florastor) 250 mg PO BID [facility] Zolpidem Tartrate (Ambien) 5 mg PO [facility] - Labs Labs: 09/12/16 06:00 09/12/16 06:00 - Constitutional Appears: Non-toxic - Head Exam Head Exam: NORMOCEPHALIC - Eye Exam Eye Exam: PERRL. absent: Scleral icterus - ENT Exam ENT Exam: Mucous Membranes Dry, Normal External Ear Exam - Neck Exam Neck Exam: absent: Lymphadenopathy - Respiratory Exam Respiratory Exam: Decreased Breath Sounds, Clear to Ausculation Bilateral - Cardiovascular Exam Cardiovascular Exam: REGULAR RHYTHM - GI/Abdominal Exam GI & Abdominal Exam: Distended, Soft - Rectal Exam Rectal Exam: Deferred - Exam Exam: NORMAL INSPECTION - Extremities Exam Extremities Exam: Pedal Edema, Tenderness Additional comments: RLE exam: Vasc: DP/PT pulses palpable 2/4. CFT to digits 1-5 < 3 seconds. TG warm to warm from proximal to distal. Mild non-pitting edema noted to right medial forefoot and hallux. Derm: Incision sites noted along length of first ray from base of metatarsal to level of proximal phalanx. Second incision site noted at level of distal phalanx. All incision sites well coapted, sutures intact and no signs of dehiscence noted. No malodor, puruelent drainage, erythema or other clinical signs of infection present Neuro: Epicritic and protective sensation grossly intact MSK: POP noted grossly to right foot. ROM limited due to post-operative nature and infection Assessment and Plan (1) Cellulitis Status: Acute (2) Diabetic ulcer of foot associated with diabetes mellitus due to underlying condition, limited to breakdown of skin Status: Acute (3) Uncontrolled diabetes mellitus Status: Acute (4) COPD (chronic obstructive pulmonary disease) Status: Acute (5) Diabetes Status: Acute
--- NOTE | 2016-09-12 17:44 | CP.PCM.PN ---
<Kaela Hay - Last Filed: 09/12/16 17:41> Subjective - Date & Time of Evaluation Date of Evaluation: 09/12/16 Time of Evaluation: 17:41 - Subjective Subjective: Hospitalists progress note by PGY2 (covering for Dr. Coates) Pt is seen and examined at bedside. No acute events overnight. Patient complains of right foot pain but she is able to ambulate to bathroom with the use of cane. Patient denies having any CP, SOB, abd pain, N/V/D/C, F/C. 12 point ROS are negative except for the above mentioned. Objective - Vital Signs/Intake and Output Vital Signs (last 24 hours): Temp Pulse Resp BP Pulse Ox 98.2 F 85 20 115/72 96 09/12/16 16:00 09/12/16 16:00 09/12/16 16:00 09/12/16 16:00 09/12/16 16:00 Intake and Output: 09/12/16 09/12/16 06:59 18:59 Intake Total 800 800 Output Total 1500 Balance 800 -700 - Medications Medications: Current Medications Albuterol/Ipratropium (Duoneb 3 Mg/0.5 Mg (3 Ml) Ud) 3 ml INH RQ6 PRN PRN Reason: Shortness of Breath Alprazolam (Xanax) 1 mg PO Q12H [facility] Last Admin: 09/12/16 09:26 Dose: Not Given Aspirin (Ecotrin) 81 mg PO DAILY [facility] Last Admin: 09/12/16 09:24 Dose: 81 mg Famotidine (Pepcid) 20 mg PO DAILY [facility] Last Admin: 09/12/16 09:24 Dose: 20 mg Heparin Sodium (Porcine) (Heparin) 5,000 units SC Q12 [facility] Last Admin: 09/12/16 09:24 Dose: 5,000 units Piperacillin Sod/Tazobactam Sod (Zosyn 3.375 Gm Iv Premix) 3.375 gm in 50 mls @ 100 mls/hr IVPB Q6 [facility] Last Admin: 09/12/16 11:27 Dose: 100 mls/hr Vancomycin HCl 1,000 mg/ (Sodium Chloride) 250 mls @ 166.6 mls/hr IVPB Q12H [facility] Last Admin: 09/12/16 12:31 Dose: 166.6 mls/hr Insulin Detemir (Levemir) 65 unit SC ACBHS [facility] Insulin Human Regular (Novolin R) 0 unit [facility] PRN Reason: Protocol Last Admin: 09/12/16 12:12 Dose: Not Given Lamotrigine (Lamictal) 200 mg PO BID [facility] Last Admin: 09/12/16 09:25 Dose: 200 mg Losartan Potassium (Cozaar) 50 mg PO DAILY [facility] Last Admin: 09/12/16 09:24 Dose: 50 mg Metformin HCl (Glucophage) 1,000 mg PO BID [facility] Last Admin: 09/12/16 09:24 Dose: 1,000 mg Mirtazapine (Remeron) 30 mg PO HS [facility] Last Admin: 09/11/16 22:03 Dose: 30 mg Nicotine (Nicoderm Cq) 1 patch TD DAILY [facility] Last Admin: 09/12/16 09:25 Dose: 1 patch Oxycodone HCl (Oxycodone Immediate Release Tab) 5 mg PO Q6 PRN PRN Reason: Pain, severe (8-10) Last Admin: 09/12/16 11:03 Dose: 5 mg Rosuvastatin Calcium (Crestor) 5 mg PO [facility] Last Admin: 09/11/16 22:02 Dose: 5 mg Saccharomyces Boulardii (Florastor) 250 mg PO BID [facility] Zolpidem Tartrate (Ambien) 5 mg PO [facility] - Labs Labs: 09/12/16 06:00 09/12/16 06:00 - Constitutional Appears: Non-toxic, No Acute Distress - Head Exam Head Exam: ATRAUMATIC - Eye Exam Eye Exam: EOMI - ENT Exam ENT Exam: Mucous Membranes Moist - Respiratory Exam Respiratory Exam: absent: Accessory Muscle Use, Respiratory Distress - GI/Abdominal Exam GI & Abdominal Exam: Soft. absent: Firm, Guarding, Rigid, Tenderness, Organomegaly - Extremities Exam Extremities Exam: absent: Pedal Edema, Tenderness - Neurological Exam Neurological Exam: Alert, Awake, Oriented x3 - Psychiatric Exam Psychiatric exam: Normal Affect, Normal Mood - Skin Skin Exam: Dry, Intact, Normal Color, Warm Assessment and Plan - Assessment and Plan (Free Text) Assessment: Assessment: Right foot infection s/p right foot surgery 09/12: PICC in place. Continue IV Abx. percocet 5/325 tab q4prn Podiatry Consult, Dr. Lieberman, help appreciated. ID Consulted, Dr. Wallace, help appreciated Uncontrolled diabetes mellitus 10/02: Blood sugar typically high at home, and now better controlled, sometimes low. Likely due to poor diet habits at home versus Carb consistent diet in hospital. Patient does occasionally refuse insulin administration. STOP Levemir 50mg SC TID Continue metformin 1000mg PO BID [facility] Endocrinology, Dr. So is consulted. Await further recs COPD (chronic obstructive pulmonary disease) Albuterol/Ipratropium (Duoneb 3 Mg/0.5 Mg (3 Ml) Ud) 3 ml INH RQ6 PRN HTN (hypertension) Stable Aspirin (Ecotrin) 81 mg PO DAILY [facility] Losartan Potassium (Cozaar) 50 mg PO DAILY [facility] Rosuvastatin Calcium (Crestor) 5 mg PO HS [facility] Insomnia continue home meds: Zolpidem Tartrate (Ambien) 5 mg PO HS [facility] Bipolar Disorder psych consulted on previous admission continue home meds: Lamotrigine (Lamictal) 200 mg PO BID [facility] Mirtazapine (Remeron) 30 mg PO HS [facility] xanax 1mg PO BID Prophylaxis pepcid heparin Dispo: Patient is to be discharged to [facility]. Awaiting insurance authorization Case discussed with attending, Dr. Busch <Sharyn Busch V - Last Filed: 09/12/16 21:39> Objective - Vital Signs/Intake and Output Vital Signs (last 24 hours): Temp Pulse Resp BP Pulse Ox 98.2 F 85 20 115/72 96 09/12/16 16:00 09/12/16 16:00 09/12/16 16:00 09/12/16 16:00 09/12/16 16:00 Intake and Output: 09/12/16 09/13/16 18:59 06:59 Intake Total 800 Output Total 1500 Balance -700 - Medications Medications: Current Medications Albuterol/Ipratropium (Duoneb 3 Mg/0.5 Mg (3 Ml) Ud) 3 ml INH RQ6 PRN PRN Reason: Shortness of Breath Alprazolam (Xanax) 1 mg PO Q12H [facility] Last Admin: 09/12/16 09:26 Dose: Not Given Aspirin (Ecotrin) 81 mg PO DAILY [facility] Last Admin: 09/12/16 09:24 Dose: 81 mg Famotidine (Pepcid) 20 mg PO DAILY [facility] Last Admin: 09/12/16 09:24 Dose: 20 mg Heparin Sodium (Porcine) (Heparin) 5,000 units SC Q12 [facility] Last Admin: 09/12/16 09:24 Dose: 5,000 units Piperacillin Sod/Tazobactam Sod (Zosyn 3.375 Gm Iv Premix) 3.375 gm in 50 mls @ 100 mls/hr IVPB Q6 [facility] Last Admin: 09/12/16 17:47 Dose: 100 mls/hr Vancomycin HCl 1,000 mg/ (Sodium Chloride) 250 mls @ 166.6 mls/hr IVPB Q12H [facility] Last Admin: 09/12/16 12:31 Dose: 166.6 mls/hr Insulin Detemir (Levemir) 65 unit SC ACBHS [facility] Insulin Human Regular (Novolin R) 0 unit SC [facility]S [facility] PRN Reason: Protocol Last Admin: 09/12/16 17:15 Dose: Not Given Lamotrigine (Lamictal) 200 mg PO BID [facility] Last Admin: 09/12/16 17:47 Dose: 200 mg Losartan Potassium (Cozaar) 50 mg PO DAILY [facility] Last Admin: 09/12/16 09:24 Dose: 50 mg Metformin HCl (Glucophage) 1,000 mg PO BID [facility] Last Admin: 09/12/16 17:50 Dose: 1,000 mg Mirtazapine (Remeron) 30 mg PO [facility] Last Admin: 09/11/16 22:03 Dose: 30 mg Nicotine (Nicoderm Cq) 1 patch TD DAILY [facility] Last Admin: 09/12/16 09:25 Dose: 1 patch Oxycodone HCl (Oxycodone Immediate Release Tab) 5 mg PO Q6 PRN PRN Reason: Pain, severe (8-10) Last Admin: 09/12/16 11:03 Dose: 5 mg Rosuvastatin Calcium (Crestor) 5 mg PO [facility] Last Admin: 09/11/16 22:02 Dose: 5 mg Saccharomyces Boulardii (Florastor) 250 mg PO BID [facility] Last Admin: 09/12/16 17:47 Dose: 250 mg Zolpidem Tartrate (Ambien) 5 mg PO [facility] - Labs Labs: 09/12/16 06:00 09/12/16 06:00 Attending/Attestation - Attestation I have personally seen and examined this patient.: Yes I have fully participated in the care of the patient.: Yes I have reviewed all pertinent clinical information, including history, physical exam and plan: Yes Notes (Text): Hospitalist service covering Dr. Coates's service Patient seen, examined and case discussed with day-time resident. Patient is currently on IV antibiotics for for patient for underwent a recent podiatric procedure and covering for infection. Patient has PICC line. Patient eager to be discharge. Patient completed arterial dopplers which reflect mild peripheral vascular disease and abnormal elevated ABGs secondary to calcifications. Will consult Vascular surgery. Patient is pending authorization for [facility] per request of podiatry who will follow-up with the patient at the [facility] 1) Cellulitis Diabetic foot ulcer complicated by post-operative infection Status: Acute Podiatry Consult, Dr. Lieberman, help appreciated. ID Consulted, Dr. Wallace, help appreciated Per infectious disease, patient recommended for 6 week of IV antibiotics to cover for osteomyelitis. Patient is currently on Zosyn 3.375 IV 6 hours and Vancomycin 1 gram IV Q 12hours. Florastor 250mg PO BID Patient underwent right foot ostecomy, post-operative 1 week from procedure with Dr Romo 2)Uncontrolled diabetes mellitus Status: Chronic Prior a1c: 12.6 (in Feb 2016) Endocrinology consult: Dr So, help appreciated for further recommendations continue Levemir 50mg SC TID Continue metformin 1000mg PO BID continue Rosuvastatin Calcium (Crestor) 5 mg PO HS [facility] Continue Aspirin (Ecotrin) 81 mg PO DAILY [facility] - accuchecks ACHS - ISS Ordered for a1c, and lipid panel in the AM 3) COPD (chronic obstructive pulmonary disease) Status: Chronic Albuterol/Ipratropium (Duoneb 3 Mg/0.5 Mg (3 Ml) Ud) 3 ml INH RQ6 PRN SOB Patient is not in acute exacerbation 4)HTN (hypertension) Status: Chronic Continue home meds: Aspirin (Ecotrin) 81 mg PO DAILY [facility] Losartan Potassium (Cozaar) 50 mg PO DAILY [facility] monitor vitals signs 5) Insomnia Status: Chronic Continue home meds: continue home meds: Zolpidem Tartrate (Ambien) 5 mg PO HS [facility] 6)Bipolar Disorder Status: Chronic psych consulted on previous admission continue home meds: Lamotrigine (Lamictal) 200 mg PO BID [facility] Mirtazapine (Remeron) 30 mg PO HS [facility] xanax 1mg PO BID 7) Peripheral vascular disease Status: Chronic Abnormal ABIs Risk factor including diabetes and hypertension Will consult vascular surgery for further recommendations 8) Prophylactic care Florastor 250mg PO bid Pepcid 20mg PO bid Heparin 5000 units sub8 hours Disposition: Patient is awaiting authorization by insurance for [facility] rehab. Patient to complete 6 weeks of osteomyelitis therapy per infectious disease. Discussed with case management who are aware.
[2016-09-12] MEDS: Saccharomyces Boulardi 250 mg Cap PO SCH (17:47)
--- NOTE | 2016-09-13 00:40 | CP.PCM.CON ---
<Marva Landers - Last Filed: 09/13/16 11:38> History of Present Illness - History of Present Illness History of Present Illness: Vascular surgery consult note for Dr. Palomino and Ciarra, covering for Dr. 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 After the procedure, patient experienced increased pain and purulent drainage and was admitted to the hospital for IV antibiotics. Patient underwent an ALVA which was found to have elevated ALVA's BL d/t calcifications, so vascular surgery was consulted. Patient is currently on day 5 of IV vancomycin and zosyn. Patient states that she has never been worked up for PVD in the past. Patient reports pain in the great toes BL that occasionally extends up the leg. Patient denies claudication but reports feeling unsteady on her feet since her last TIA. Also reports that her feet are "always cold." Denies any chest pain, SOB, abdominal pain, diarrhea , fevers, chills, or any other wounds PMH: DM, COPD, HTN, bipolar, GERD, HLD, TIA, asthma PSH: osteoectomy, ENT surgery for sinusitis, appendectomy, hysterectomy, BL carpal tunnel release ALL: Iodine dye Social: tobacco: 38pack years, recently switched to vaping. Denies ETOH or drugs Review of Systems - Review of Systems All systems: reviewed and no additional remarkable complaints except (as per HPI ) - Constitutional Constitutional: absent: Chills, Fever - EENT Eyes: absent: Change in Vision Ears: Disequilibrium. absent: Dizziness - Cardiovascular Cardiovascular: absent: Chest Pain, Chest Pain at Rest, Chest Pain with Activity , Dyspnea, Edema - Respiratory Respiratory: absent: Cough, Dyspnea, Wheezing - Gastrointestinal Gastrointestinal: absent: Abdominal Pain, Constipation, Diarrhea, Nausea, Vomiting - Genitourinary Genitourinary: absent: Change in Urinary Stream, Dysuria, Flank Pain - Integumentary Integumentary: Wounds (BL greater toe nail bed non-healing wound) - Neurological Neurological: Disequilibrium, Sensory Deficit (numbness of the feet BL), Weakness. absent: Dizziness, Focal Weakness, Syncope, Vertigo - Endocrine Endocrine: absent: Palpitations, Polydipsia, Polyuria Past Patient History - Infectious Disease Hx of Infectious Diseases: None - Past Medical History & Family History Past Medical History?: Yes - Past Social History Smoking Status: Unknown If Ever Smoked - CARDIAC Hx Hypercholesterolemia: Yes Hx Hypertension: Yes - PULMONARY Hx Asthma: Yes ("MILD INTERMITTENT ASTHMA,UNCOMPLICATED") - NEUROLOGICAL Hx Seizures: Yes (last one 07/2015) Hx Transient Ischemic Attacks (TIA): Yes (05/2012, 02/2015) - HEENT Hx HEENT Problems: No Other/Comment: HX: "INFECTIVE OITIS EXTERNAL, LEFT EAR". HX: "SINUS SURGERY" - RENAL Hx Chronic Kidney Disease: No - ENDOCRINE/METABOLIC Hx Endocrine Disorders: Yes Hx Diabetes Mellitus Type 2: Yes - HEMATOLOGICAL/ONCOLOGICAL Hx Blood Disorders: Yes Hx Blood Transfusions: Yes (1993) Hx Blood Transfusion Reaction: Yes (Reaction with Fever,Vomiting.) - INTEGUMENTARY Hx Dermatological Problems: Yes Other/Comment: HX: LEFT BREAT CYST - MUSCULOSKELETAL/RHEUMATOLOGICAL Hx Arthritis: Yes (right foot 1st digit) - GASTROINTESTINAL Hx Gastrointestinal Disorders: Yes Hx Gastroesophageal Reflux: Yes - GENITOURINARY/GYNECOLOGICAL Hx Genitourinary Disorders: No - PSYCHIATRIC Hx Anxiety: Yes Hx Bipolar Disorder: Yes Hx Depression: Yes Hx Schizophrenia: Yes Hx Substance Use: No - SURGICAL HISTORY Hx Appendectomy: Yes (34 years ago) - ANESTHESIA Hx Anesthesia: Yes Hx Anesthesia Reactions: No Hx Malignant Hyperthermia: No Meds Home Medications: Home Medication List Medication Instructions Recorded Confirmed Type Insulin Detemir [Levemir] 65 unit SC ACBHS unit 09/12/16 Rx Saccharomyces Boulardi [Florastor] 250 mg PO BID cap 09/12/16 Rx Vancomycin [Vancomycin Inj] 1,000 mg IVPB Q12H vial 09/12/16 Rx Allergies/Adverse Reactions: Allergies Allergy/AdvReac Type Severity Reaction Status Date / Time iodine dye Allergy RASH Uncoded 09/09/16 12:11 - Medications Medications: Current Medications Albuterol/Ipratropium (Duoneb 3 Mg/0.5 Mg (3 Ml) Ud) 3 ml INH RQ6 PRN PRN Reason: Shortness of Breath Alprazolam (Xanax) 1 mg PO Q12H [facility] Last Admin: 09/12/16 21:30 Dose: 1 mg Aspirin (Ecotrin) 81 mg PO DAILY [facility] Last Admin: 09/12/16 09:24 Dose: 81 mg Famotidine (Pepcid) 20 mg PO DAILY [facility] Last Admin: 09/12/16 09:24 Dose: 20 mg Glimepiride (Amaryl) 4 mg PO ACBD [facility] Piperacillin Sod/Tazobactam Sod (Zosyn 3.375 Gm Iv Premix) 3.375 gm in 50 mls @ 100 mls/hr IVPB Q6 [facility] Last Admin: 09/12/16 23:45 Dose: 100 mls/hr Vancomycin HCl 1,000 mg/ (Sodium Chloride) 250 mls @ 166.6 mls/hr IVPB Q12H [facility] Last Admin: 09/12/16 12:31 Dose: 166.6 mls/hr Insulin Detemir (Levemir) 65 unit SC [facility] Last Admin: 09/12/16 21:58 Dose: 65 unit Insulin Human Regular (Novolin R) 0 unit SC [facility] PRN Reason: Protocol Lamotrigine (Lamictal) 200 mg PO BID [facility] Last Admin: 09/12/16 17:47 Dose: 200 mg Losartan Potassium (Cozaar) 50 mg PO DAILY [facility] Last Admin: 09/12/16 09:24 Dose: 50 mg Metformin HCl (Glucophage) 1,000 mg PO BID [facility] Last Admin: 09/12/16 17:50 Dose: 1,000 mg Mirtazapine (Remeron) 30 mg PO [facility] Last Admin: 09/12/16 21:52 Dose: 30 mg Nicotine (Nicoderm Cq) 1 patch TD DAILY [facility] Last Admin: 09/12/16 09:25 Dose: 1 patch Oxycodone HCl (Oxycodone Immediate Release Tab) 5 mg PO Q6 PRN PRN Reason: Pain, severe (8-10) Last Admin: 09/12/16 11:03 Dose: 5 mg Rosuvastatin Calcium (Crestor) 5 mg PO HS [facility] Last Admin: 09/12/16 21:52 Dose: 5 mg Saccharomyces Boulardii (Florastor) 250 mg PO BID [facility] Last Admin: 09/12/16 17:47 Dose: 250 mg Zolpidem Tartrate (Ambien) 5 mg PO Q24H [facility] Last Admin: 09/12/16 23:29 Dose: 5 mg Physical Exam - Constitutional Appears: Well, Non-toxic, No Acute Distress - Head Exam Head Exam: ATRAUMATIC, NORMOCEPHALIC - Eye Exam Eye Exam: Normal appearance. absent: Conjunctival injection, Scleral icterus - ENT Exam ENT Exam: Mucous Membranes Moist, Normal Oropharynx - Respiratory Exam Respiratory Exam: NORMAL BREATHING PATTERN. absent: Accessory Muscle Use, Respiratory Distress - Cardiovascular Exam Cardiovascular Exam: Tachycardia, REGULAR RHYTHM - GI/Abdominal Exam GI & Abdominal Exam: Soft. absent: Distended, Tenderness - Extremities Exam Extremities exam: Positive for: pedal pulses present (2/4 DP and PT BL). Negative for: calf tenderness, pedal edema Additional comments: warm to the touch. BL greater toenail missing with superficial wound in the nail bed. Right great toe with surgical incision over metatarsal with skin edges well approximated with sutures, no purulent drainage or active bleeding - Neurological Exam Neurological exam: Alert, Oriented x3 - Psychiatric Exam Psychiatric exam: Normal Affect, Normal Mood - Skin Skin Exam: Dry, Normal Color, Warm Results - Vital Signs Recent Vital Signs: Last Vital Signs Temp 97.4 F L 09/13/16 00:03 Pulse 88 09/13/16 00:03 Resp 20 09/13/16 00:03 BP 116/77 09/13/16 00:03 Pulse Ox 97 09/13/16 00:03 - Labs Result Diagrams: 09/13/16 07:10 09/13/16 07:10 Labs: Laboratory Results - last 24 hr 09/12/16 09/12/16 09/12/16 06:00 06:00 07:08 WBC 7.9 RBC 4.28 Hgb 11.9 Hct 36.9 MCV 86.2 MCH 27.9 MCHC 32.4 L RDW 13.3 Plt Count 176 MPV 9.9 Neut % (Auto) 47.1 L Lymph % (Auto) 37.6 Harmon % (Auto) 6.1 Eos % (Auto) 7.4 H Baso % (Auto) 1.8 Neut # 3.7 Lymph # 3.0 Harmon # 0.5 Eos # 0.6 Baso # 0.1 Sodium 136 Potassium 3.8 Chloride 100 Carbon Dioxide 27 Anion Gap 12 BUN 20 H Creatinine 0.6 L Est GFR ( Amer) > 60 Est GFR (Non-Af Amer) > 60 POC Glucose (mg/dL) 208 H Random Glucose 235 H Calcium 8.4 L Total Bilirubin 0.4 AST 81 H D ALT 78 H D Alkaline Phosphatase 77 Total Protein 5.8 L Albumin 3.1 L Globulin 2.7 Albumin/Globulin Ratio 1.1 Vancomycin Trough 09/12/16 09/12/16 09/12/16 11:25 11:37 16:53 WBC RBC Hgb Hct MCV MCH MCHC RDW Plt Count MPV Neut % (Auto) Lymph % (Auto) Harmon % (Auto) Eos % (Auto) Baso % (Auto) Neut # Lymph # Harmon # Eos # Baso # Sodium Potassium Chloride Carbon Dioxide Anion Gap BUN Creatinine Est GFR ( Amer) Est GFR (Non-Af Amer) POC Glucose (mg/dL) 179 H 190 H Random Glucose Calcium Total Bilirubin AST ALT Alkaline Phosphatase Total Protein Albumin Globulin Albumin/Globulin Ratio Vancomycin Trough 8.2 09/12/16 21:01 WBC RBC Hgb Hct MCV MCH MCHC RDW Plt Count MPV Neut % (Auto) Lymph % (Auto) Harmon % (Auto) Eos % (Auto) Baso % (Auto) Neut # Lymph # Harmon # Eos # Baso # Sodium Potassium Chloride Carbon Dioxide Anion Gap BUN Creatinine Est GFR ( Amer) Est GFR (Non-Af Amer) POC Glucose (mg/dL) 255 H Random Glucose Calcium Total Bilirubin AST ALT Alkaline Phosphatase Total Protein Albumin Globulin Albumin/Globulin Ratio Vancomycin Trough Assessment & Plan - Assessment and Plan (Free Text) Assessment: 50 year old female with PMH of DM2 with diabetic neuropathy, COPD, TIA, HLD, and PSH including recent osteoctomy of the right great toe for chronic non- healing wound with subsequent infection Pedal pulses palpable, lower legs and feet warm to the touch BL, superficial wounds in the beds of greater toe-nails, no other wounds ALVA: R: 1.33, L 1.21. Bilateral mild intrapopliteal artery occlusive disease with medial calcification leading to a falsely elevated ALVA WBC: wnl Plan: -No plans of immediate surgery -Continue IV antibiotics -Continue wound care per podiatry -Further recs per Dr. Palomino and Ciarra, covering for Dr. Case Thank you for this consult Marva Landers, PGY2 <Scotty Palomino - Last Filed: 09/13/16 13:21> Meds - Medications Medications: Current Medications Albuterol/Ipratropium (Duoneb 3 Mg/0.5 Mg (3 Ml) Ud) 3 ml INH RQ6 PRN PRN Reason: Shortness of Breath Alprazolam (Xanax) 1 mg PO Q12H [facility] Last Admin: 09/13/16 09:06 Dose: 1 mg Aspirin (Ecotrin) 81 mg PO DAILY [facility] Last Admin: 09/13/16 09:07 Dose: 81 mg Famotidine (Pepcid) 20 mg PO DAILY [facility] Last Admin: 09/13/16 09:07 Dose: 20 mg Glimepiride (Amaryl) 4 mg PO ACBD [facility] Last Admin: 09/13/16 09:07 Dose: 4 mg Piperacillin Sod/Tazobactam Sod (Zosyn 3.375 Gm Iv Premix) 3.375 gm in 50 mls @ 100 mls/hr IVPB Q6 [facility] Last Admin: 09/13/16 13:12 Dose: 100 mls/hr Vancomycin HCl 1,000 mg/ (Sodium Chloride) 250 mls @ 166.6 mls/hr IVPB Q12H [facility] Last Admin: 09/13/16 01:19 Dose: 166.6 mls/hr Insulin Detemir (Levemir) 70 unit SC [facility] Insulin Human Regular (Novolin R) 0 unit SC ACHS [facility] PRN Reason: Protocol Last Admin: 09/13/16 12:41 Dose: Not Given Lamotrigine (Lamictal) 200 mg PO BID [facility] Last Admin: 09/13/16 09:06 Dose: 200 mg Losartan Potassium (Cozaar) 50 mg PO DAILY [facility] Last Admin: 09/13/16 09:07 Dose: 50 mg Metformin HCl (Glucophage) 1,000 mg PO BID [facility] Last Admin: 09/13/16 09:21 Dose: 1,000 mg Mirtazapine (Remeron) 30 mg PO HS [facility] Last Admin: 09/12/16 21:52 Dose: 30 mg Nicotine (Nicoderm Cq) 1 patch TD DAILY [facility] Last Admin: 09/13/16 09:09 Dose: 1 patch Oxycodone HCl (Oxycodone Immediate Release Tab) 5 mg PO Q6 PRN PRN Reason: Pain, severe (8-10) Last Admin: 09/13/16 09:07 Dose: 5 mg Rosuvastatin Calcium (Crestor) 5 mg PO HS [facility] Last Admin: 09/12/16 21:52 Dose: 5 mg Saccharomyces Boulardii (Florastor) 250 mg PO BID [facility] Last Admin: 09/13/16 09:06 Dose: 250 mg Zolpidem Tartrate (Ambien) 5 mg PO Q24H [facility] Last Admin: 09/12/16 23:29 Dose: 5 mg Results - Vital Signs Recent Vital Signs: Last Vital Signs Temp 97.4 F L 09/13/16 07:51 Pulse 88 09/13/16 07:51 Resp 20 09/13/16 07:51 BP 130/85 09/13/16 07:51 Pulse Ox 98 09/13/16 07:51 - Labs Result Diagrams: 09/13/16 07:10 09/13/16 07:10 Labs: Laboratory Results - last 24 hr 09/12/16 09/12/16 09/13/16 16:53 21:01 07:09 WBC RBC Hgb Hct MCV MCH MCHC RDW Plt Count MPV Neut % (Auto) Lymph % (Auto) Harmon % (Auto) Eos % (Auto) Baso % (Auto) Neut # Lymph # Harmon # Eos # Baso # Sodium Potassium Chloride Carbon Dioxide Anion Gap BUN Creatinine Est GFR ( Amer) Est GFR (Non-Af Amer) POC Glucose (mg/dL) 190 H 255 H 201 H Random Glucose Hemoglobin A1c Calcium Phosphorus Magnesium Total Bilirubin AST ALT Alkaline Phosphatase Total Protein Albumin Globulin Albumin/Globulin Ratio Triglycerides Cholesterol LDL Cholesterol Direct HDL Cholesterol 09/13/16 09/13/16 09/13/16 07:10 07:10 07:10 WBC 8.8 RBC 4.49 Hgb 12.6 Hct 38.5 MCV 85.8 MCH 28.0 MCHC 32.6 L RDW 13.3 Plt Count 196 MPV 10.3 Neut % (Auto) 43.2 L Lymph % (Auto) 39.2 Harmon % (Auto) 6.5 Eos % (Auto) 9.3 H Baso % (Auto) 1.8 Neut # 3.8 Lymph # 3.4 Harmon # 0.6 Eos # 0.8 H Baso # 0.2 Sodium 138 Potassium 3.6 Chloride 104 Carbon Dioxide 25 Anion Gap 13 BUN 17 Creatinine 0.6 L Est GFR ( Amer) > 60 Est GFR (Non-Af Amer) > 60 POC Glucose (mg/dL) Random Glucose 255 H Hemoglobin A1c 15.1 H Calcium 9.1 Phosphorus 3.7 Magnesium 1.8 Total Bilirubin 0.5 AST 92 H ALT 98 H D Alkaline Phosphatase 96 Total Protein 6.2 L Albumin 3.4 L Globulin 2.9 Albumin/Globulin Ratio 1.2 Triglycerides 359 H Cholesterol 213 H LDL Cholesterol Direct 106 HDL Cholesterol 67 09/13/16 11:15 WBC RBC Hgb Hct MCV MCH MCHC RDW Plt Count MPV Neut % (Auto) Lymph % (Auto) Harmon % (Auto) Eos % (Auto) Baso % (Auto) Neut # Lymph # Harmon # Eos # Baso # Sodium Potassium Chloride Carbon Dioxide Anion Gap BUN Creatinine Est GFR ( Amer) Est GFR (Non-Af Amer) POC Glucose (mg/dL) 178 H Random Glucose Hemoglobin A1c Calcium Phosphorus Magnesium Total Bilirubin AST ALT Alkaline Phosphatase Total Protein Albumin Globulin Albumin/Globulin Ratio Triglycerides Cholesterol LDL Cholesterol Direct HDL Cholesterol Assessment & Plan - Assessment and Plan (Free Text) Plan: Patient seen and examined. Records reviewed and bilateral lower extremity ultrasound findings noted. Patient has multiple co-morbidities and risk factors for PAD including strong family history, poorly-controlled diabetes and over 35 years of tobacco smoking. At present, however, she has no obvious signs of advanced ischemia in her lower extremities clinically although degree of small vessel disease can not be excluded. There is palpable femoral and pedal pulses on the right. There is palpable left femoral pulse and absent pedal pulses on my exam. Left foot, however, is warm with no apparent motor-sensory deficits and no necrotic or gangrenous changes at present. Continue current treatment. I do not appreciate immediate need for vascular intervention or additional testing at this moment. I will gladly follow up the patient as an outpatient.
[2016-09-13] MEDS: Piperacill/Tazo 3.375gm in Dex 3.375 GM/50 ML BAG IVPB SCH ×3 (05:06→18:07)
[2016-09-13 07:20] LABS: BASO # 0.2 K/uL (0.0-0.2); BASO % 1.8 % (0.0-2.0); EOS # 0.8 K/uL (0.0-0.7); EOS % 9.3 % (0.0-4.0); HEMOGLOBIN 12.6 g/dL (11.0-16.0); LYMPH # 3.4 K/uL (1.0-4.3); LYMPH % 39.2 % (20.0-40.0); MEAN CELL VOLUME 85.8 fL (81.0-99.0); MEAN CORPUSCULAR HGB CONC 32.6 g/dL (33.0-37.0); MEAN PLATELET VOLUME 10.3 fL (7.2-11.7); MONO # 0.6 K/uL (0.0-0.8); MONO % 6.5 % (0.0-10.0); NEUT # 3.8 K/uL (1.8-7.0); NEUT % 43.2 % (50.0-75.0); NRBC % 0.1 % (0.0-2.0); RBC 4.49 Mil/uL (3.80-5.20); RED CELL DISTRIBUTION WIDTH 13.3 % (11.5-14.5); WHITE BLOOD COUNT 8.8 K/uL (4.8-10.8)
[2016-09-13 07:46] LABS: ALBUMIN 3.4 g/dL (3.5-5.0)
[2016-09-13 07:49] LABS: ALB/GLOB RATIO 1.2 (1.0-2.1); AST/SGOT 92 U/L (14-36); BLOOD UREA NITROGEN 17 mg/dL (7-17); GFR AFRICAN-AMERICAN > 60; GFR NON-AFRICAN AMERICAN > 60
[2016-09-13 07:50] LABS: ALT/SGPT 98 U/L (9-52); CALCIUM 9.1 mg/dl (8.6-10.4); HDL CHOLESTEROL 67 mg/dL (30-70); MAGNESIUM 1.8 mg/dL (1.6-2.3)
[2016-09-13 08:01] LABS: LDL CHOLESTEROL 106 mg/dL (0-129)
[2016-09-13] MEDS: Saccharomyces Boulardi 250 mg Cap PO SCH ×2 (09:06→18:07)
[2016-09-13] MEDS: Insulin Detemir 100 units/ml Vial (Levemir) SC SCH ×2 (09:06→22:49)
[2016-09-13] MEDS: oxyCODONE 5 mg Immediate Release Tab PO PRN (09:07)
[2016-09-13] MEDS: (Novolin R) Insulin Human Regular 100 units/ml vial SC SCH ×4 (09:09→22:49)
--- NOTE | 2016-09-13 14:11 | CP.PCM.PN ---
Subjective - Date & Time of Evaluation Date of Evaluation: 09/13/16 Time of Evaluation: 12:55 - Subjective Subjective: Medical attending note Follow-up: Cellulitis, diabetic ulcer, peripheral vascular disease, hypertension , hyperlipidemia Patient seen and examined. Patient reports denies headache, denies chest pain, denies shortness of breathe, denies nausea, denies vomitting, denies abdominal pain, denies nausea, denies dysura, denies constipation, and denies numbness and denies tingling. Patient request to see psychiatrist. Patient reports she was very upset with the social/case management yesterday. Objective - Vital Signs/Intake and Output Vital Signs (last 24 hours): Temp Pulse Resp BP Pulse Ox 97.4 F L 88 20 130/85 98 09/13/16 07:51 09/13/16 07:51 09/13/16 07:51 09/13/16 07:51 09/13/16 07:51 Intake and Output: 09/13/16 09/13/16 06:59 18:59 Intake Total 1160 Balance 1160 - Medications Medications: Current Medications Albuterol/Ipratropium (Duoneb 3 Mg/0.5 Mg (3 Ml) Ud) 3 ml INH RQ6 PRN PRN Reason: Shortness of Breath Alprazolam (Xanax) 1 mg PO Q12H [facility] Last Admin: 09/13/16 09:06 Dose: 1 mg Aspirin (Ecotrin) 81 mg PO DAILY [facility] Last Admin: 09/13/16 09:07 Dose: 81 mg Famotidine (Pepcid) 20 mg PO DAILY [facility] Last Admin: 09/13/16 09:07 Dose: 20 mg Glimepiride (Amaryl) 4 mg PO ACBD [facility] Last Admin: 09/13/16 09:07 Dose: 4 mg Piperacillin Sod/Tazobactam Sod (Zosyn 3.375 Gm Iv Premix) 3.375 gm in 50 mls @ 100 mls/hr IVPB Q6 [facility] Last Admin: 09/13/16 13:12 Dose: 100 mls/hr Vancomycin HCl 1,000 mg/ (Sodium Chloride) 250 mls @ 166.6 mls/hr IVPB Q12H [facility] Last Admin: 09/13/16 13:42 Dose: 166.6 mls/hr Insulin Detemir (Levemir) 70 unit SC ACBHS [facility] Insulin Human Regular (Novolin R) 0 unit SC ACHS [facility] PRN Reason: Protocol Last Admin: 09/13/16 12:41 Dose: Not Given Lamotrigine (Lamictal) 200 mg PO BID [facility] Last Admin: 09/13/16 09:06 Dose: 200 mg Losartan Potassium (Cozaar) 50 mg PO DAILY [facility] Last Admin: 09/13/16 09:07 Dose: 50 mg Metformin HCl (Glucophage) 1,000 mg PO BID [facility] Last Admin: 09/13/16 09:21 Dose: 1,000 mg Mirtazapine (Remeron) 30 mg PO HS [facility] Last Admin: 09/12/16 21:52 Dose: 30 mg Nicotine (Nicoderm Cq) 1 patch TD DAILY [facility] Last Admin: 09/13/16 09:09 Dose: 1 patch Oxycodone HCl (Oxycodone Immediate Release Tab) 5 mg PO Q6 PRN PRN Reason: Pain, severe (8-10) Last Admin: 09/13/16 09:07 Dose: 5 mg Rosuvastatin Calcium (Crestor) 5 mg PO HS [facility] Last Admin: 09/12/16 21:52 Dose: 5 mg Saccharomyces Boulardii (Florastor) 250 mg PO BID [facility] Last Admin: 09/13/16 09:06 Dose: 250 mg Zolpidem Tartrate (Ambien) 5 mg PO Q24H [facility] Last Admin: 09/12/16 23:29 Dose: 5 mg - Labs Labs: 09/13/16 07:10 09/13/16 07:10 - Constitutional Appears: Non-toxic, No Acute Distress - Head Exam Head Exam: NORMAL INSPECTION - Eye Exam Eye Exam: EOMI - ENT Exam ENT Exam: Mucous Membranes Moist - Respiratory Exam Respiratory Exam: Clear to Ausculation Bilateral, NORMAL BREATHING PATTERN. absent: Rales, Rhonchi, Wheezes - Cardiovascular Exam Cardiovascular Exam: REGULAR RHYTHM, +S1, +S2 - GI/Abdominal Exam GI & Abdominal Exam: Soft, Normal Bowel Sounds. absent: Distended, Firm, Guarding, Rigid, Tenderness, Rebound - Extremities Exam Extremities Exam: Normal Capillary Refill. absent: Joint Swelling, Tenderness Additional comments: sutures over bilateral forefoot palpable pulses - Neurological Exam Neurological Exam: Alert, Awake, Oriented x3 - Psychiatric Exam Psychiatric exam: Normal Affect, Normal Mood - Skin Skin Exam: Dry, Normal Color, Warm Attending/Attestation - Attestation I have personally seen and examined this patient.: Yes I have fully participated in the care of the patient.: Yes I have reviewed all pertinent clinical information, including history, physical exam and plan: Yes Notes (Text): Patient seen, examined and case discussed with day-time resident. Patient is currently on IV antibotics to cover for osteomyelitis. Appreciated input by vascular surgery Patient is requesting to see psychiatrist. Awaiting authorization of case management/public health social worker. Assessment/Plan 1) Cellulitis Diabetic foot ulcer complicated by post-operative infection Status: Acute Podiatry Consult, Dr. Lieberman, help appreciated. ID Consulted, Dr. Wallace, help appreciated Per infectious disease, patient recommended for 6 week of IV antibiotics to cover for osteomyelitis. Patient is currently on Zosyn 3.375 IV 6 hours and Vancomycin 1 gram IV Q 12hours. Florastor 250mg PO BID Patient underwent right foot ostecomy, post-operative 1 week from procedure with Dr Romo 2)Uncontrolled diabetes mellitus Status: Chronic Prior a1c: 12.6 (in Feb 2016)-->15.5 Endocrinology consult: Dr So, help appreciated for further recommendations continue Levemir 50mg SC TID Continue metformin 1000mg PO BID continue Rosuvastatin Calcium (Crestor) 5 mg PO HS [facility] Continue Aspirin (Ecotrin) 81 mg PO DAILY [facility] - accuchecks ACHS - ISS Patient strongly counselled for dietary modifications. patient is aware her sugar remains uncontrol and will impair wound healing. patient counselled to stop drinking the diet sodas which are present at bedside. 3) COPD (chronic obstructive pulmonary disease) Status: Chronic Albuterol/Ipratropium (Duoneb 3 Mg/0.5 Mg (3 Ml) Ud) 3 ml INH RQ6 PRN SOB Patient is not in acute exacerbation 4)HTN (hypertension) Status: Chronic Continue home meds: Aspirin (Ecotrin) 81 mg PO DAILY [facility] Losartan Potassium (Cozaar) 50 mg PO DAILY [facility] monitor vitals signs 5) Insomnia Status: Chronic Continue home meds: continue home meds: Zolpidem Tartrate (Ambien) 5 mg PO HS [facility] 6)Bipolar Disorder Status: Chronic psych consulted on previous admission continue home meds: Lamotrigine (Lamictal) 200 mg PO BID [facility] Mirtazapine (Remeron) 30 mg PO HS [facility] xanax 1mg PO BID Psychiatrist (Dr. Salas)-->patient is requesting to see. 7) Peripheral vascular disease Status: Chronic Vascular surgery (Dr. Palomino) covering for Dr. Tenorio (vascular surgery)--> help appreciated Abnormal ABIs Risk factor including diabetes and hypertension Per vascular surgery: Continue current treatment. I do not appreciate immediate need for vascular intervention or additional testing at this moment. I will gladly follow up the patient as an outpatient. 8) Prophylactic care Florastor 250mg PO bid Pepcid 20mg PO bid Heparin 5000 units sub8 hours Disposition: Patient is awaiting authorization by insurance for [facility] rehab. Patient to complete 6 weeks of osteomyelitis therapy per infectious disease. Discussed with case management who are aware.
--- NOTE | 2016-09-13 17:37 | CP.PCM.PN ---
Subjective - Date & Time of Evaluation Date of Evaluation: 09/13/16 Time of Evaluation: 03:00 - Subjective Subjective: 50 year old female seen at bedside today for an infection 8 days s/p right foot ostectomy. Patient states that she is still feeling pain in the right lower extremity that causes throbbing in the leg and ankle area. Patient states she is in mild pain at the surgical incision sites. Patient denies any acute events overnight. Patient denies any further pedal complaints at this time. Patient denies N/V/F/C/CP/SOB. Objective - Vital Signs/Intake and Output Vital Signs (last 24 hours): Temp Pulse Resp BP Pulse Ox 98.6 F 81 20 113/73 97 09/13/16 16:00 09/13/16 16:00 09/13/16 16:00 09/13/16 16:00 09/13/16 16:00 Intake and Output: 09/13/16 09/13/16 06:59 18:59 Intake Total 1160 750 Balance 1160 750 - Medications Medications: Current Medications Albuterol/Ipratropium (Duoneb 3 Mg/0.5 Mg (3 Ml) Ud) 3 ml INH RQ6 PRN PRN Reason: Shortness of Breath Alprazolam (Xanax) 1 mg PO Q12H [facility] Last Admin: 09/13/16 09:06 Dose: 1 mg Aspirin (Ecotrin) 81 mg PO DAILY [facility] Last Admin: 09/13/16 09:07 Dose: 81 mg Famotidine (Pepcid) 20 mg PO DAILY [facility] Last Admin: 09/13/16 09:07 Dose: 20 mg Glimepiride (Amaryl) 4 mg PO ACBD [facility] Last Admin: 09/13/16 09:07 Dose: 4 mg Piperacillin Sod/Tazobactam Sod (Zosyn 3.375 Gm Iv Premix) 3.375 gm in 50 mls @ 100 mls/hr IVPB Q6 [facility] Last Admin: 09/13/16 13:12 Dose: 100 mls/hr Vancomycin HCl 1,000 mg/ (Sodium Chloride) 250 mls @ 166.6 mls/hr IVPB Q12H [facility] Last Admin: 09/13/16 13:42 Dose: 166.6 mls/hr Insulin Detemir (Levemir) 70 unit SC ACS [facility] Insulin Human Regular (Novolin R) 0 unit SC ACHS [facility] PRN Reason: Protocol Last Admin: 09/13/16 12:41 Dose: Not Given Lamotrigine (Lamictal) 200 mg PO BID [facility] Last Admin: 09/13/16 09:06 Dose: 200 mg Losartan Potassium (Cozaar) 50 mg PO DAILY [facility] Last Admin: 09/13/16 09:07 Dose: 50 mg Metformin HCl (Glucophage) 1,000 mg PO BID [facility] Last Admin: 09/13/16 09:21 Dose: 1,000 mg Mirtazapine (Remeron) 30 mg PO HS [facility] Last Admin: 09/12/16 21:52 Dose: 30 mg Nicotine (Nicoderm Cq) 1 patch TD DAILY [facility] Last Admin: 09/13/16 09:09 Dose: 1 patch Oxycodone HCl (Oxycodone Immediate Release Tab) 5 mg PO Q6 PRN PRN Reason: Pain, severe (8-10) Last Admin: 09/13/16 09:07 Dose: 5 mg Rosuvastatin Calcium (Crestor) 10 mg PO [facility] Saccharomyces Boulardii (Florastor) 250 mg PO BID [facility] Last Admin: 09/13/16 09:06 Dose: 250 mg Zolpidem Tartrate (Ambien) 5 mg PO Q24H [facility] Last Admin: 09/12/16 23:29 Dose: 5 mg - Labs Labs: 09/13/16 07:10 09/13/16 07:10 - Constitutional Appears: Well, Non-toxic, No Acute Distress - Extremities Exam Additional comments: Vasc: DP/PT pulses palpable 2/4 B/L. CFT < 3 seconds to all digits. TG warm to warm. Mild non-pitting edema noted to right ankle and dorsum of right foot surrounding surgical incision site. Derm: Incision sites noted along length of right foot first ray from base of metatarsal to level of proximal phalanx. Second incision site noted at level of distal phalanx. All incision sites well coapted, sutures intact and no signs of dehiscence noted. No malodor, purulent drainage, erythema or other clinical signs of infection present. Surgical incision site noted along left hallux at level of toenail is well-coapted. Sutures intact, no drainage, no erythema, no malodor, no clinical signs of infection. Neuro: Epicritic and protective sensation grossly intact MSK: Pain on palpation noted grossly to right foot and ankle region. ROM limited due to pain - Neurological Exam Neurological Exam: Alert, Awake, Oriented x3 - Psychiatric Exam Psychiatric exam: Normal Affect, Normal Mood Assessment and Plan - Assessment and Plan (Free Text) Assessment: 50 year old female with infection at right first ray 8 days s/p right foot surgery and left foot nail surgery Plan: Patient seen and evaluated at bedside Vitals and charts reviewed; WBC 8.8, Afebrile Plan discussed with Dr. Deras in detail Still awaiting serum nicotine result - will call [facility] or [facility] tomorrow to get results applied flo CAMACHO to B/L feet Podiatry plans to DC patient to [facility] ([facility]) - patient stated she is awaiting insurance approval for this to happen Dr. Deras will f/u at [facility] Patient stable per podiatry
[2016-09-14] MEDS: Piperacill/Tazo 3.375gm in Dex 3.375 GM/50 ML BAG IVPB SCH ×3 (05:29→12:01)
[2016-09-14 07:22] LABS: ALBUMIN 3.3 g/dL (3.5-5.0); BASO # 0.2 K/uL (0.0-0.2); BASO % 1.8 % (0.0-2.0); EOS # 0.7 K/uL (0.0-0.7); EOS % 8.6 % (0.0-4.0); HEMOGLOBIN 12.6 g/dL (11.0-16.0); LYMPH # 3.3 K/uL (1.0-4.3); MEAN CORPUSCULAR HGB CONC 32.2 g/dL (33.0-37.0); MEAN PLATELET VOLUME 9.8 fL (7.2-11.7); MONO # 0.5 K/uL (0.0-0.8); MONO % 6.3 % (0.0-10.0); NEUT # 3.9 K/uL (1.8-7.0); NEUT % 45.3 % (50.0-75.0); NRBC % 0.1 % (0.0-2.0); RBC 4.5 Mil/uL (3.80-5.20); RED CELL DISTRIBUTION WIDTH 13.6 % (11.5-14.5); WHITE BLOOD COUNT 8.6 K/uL (4.8-10.8)
[2016-09-14 07:24] LABS: GFR AFRICAN-AMERICAN > 60; GFR NON-AFRICAN AMERICAN > 60
[2016-09-14 07:25] LABS: ALB/GLOB RATIO 1.3 (1.0-2.1); ALT/SGPT 145 U/L (9-52); AST/SGOT 124 U/L (14-36); BLOOD UREA NITROGEN 16 mg/dL (7-17)
[2016-09-14 07:26] LABS: CALCIUM 8.9 mg/dl (8.6-10.4); MAGNESIUM 1.9 mg/dL (1.6-2.3)
[2016-09-14] MEDS: (Novolin R) Insulin Human Regular 100 units/ml vial SC SCH ×2 (08:20→12:10)
--- NOTE | 2016-09-14 09:27 | CP.PCM.PN ---
Subjective - Date & Time of Evaluation Date of Evaluation: 09/14/16 Time of Evaluation: 09:25 - Subjective Subjective: 50 year old female seen at bedside today for an infection 9 days s/p right foot ostectomy. Patient states she is in mild pain at the surgical incision sites. Patient denies any acute events overnight. Patient denies any further pedal complaints at this time. Patient denies N/V/F/C/CP/SOB. Objective - Vital Signs/Intake and Output Vital Signs (last 24 hours): Temp Pulse Resp BP Pulse Ox 98.3 F 88 16 104/65 99 09/14/16 00:07 09/14/16 00:07 09/14/16 00:07 09/14/16 00:07 09/14/16 00:07 Intake and Output: 09/14/16 09/14/16 06:59 18:59 Intake Total 840 Balance 840 - Medications Medications: Current Medications Albuterol/Ipratropium (Duoneb 3 Mg/0.5 Mg (3 Ml) Ud) 3 ml INH RQ6 PRN PRN Reason: Shortness of Breath Alprazolam (Xanax) 1 mg PO Q12H [facility] Last Admin: 09/13/16 21:34 Dose: 1 mg Aspirin (Ecotrin) 81 mg PO DAILY [facility] Last Admin: 09/13/16 09:07 Dose: 81 mg Famotidine (Pepcid) 20 mg PO DAILY [facility] Last Admin: 09/13/16 09:07 Dose: 20 mg Glimepiride (Amaryl) 4 mg PO ACBD [facility] Last Admin: 09/13/16 16:55 Dose: Not Given Piperacillin Sod/Tazobactam Sod (Zosyn 3.375 Gm Iv Premix) 3.375 gm in 50 mls @ 100 mls/hr IVPB Q6 [facility] Last Admin: 09/14/16 05:29 Dose: 100 mls/hr Vancomycin HCl 1,000 mg/ (Sodium Chloride) 250 mls @ 166.6 mls/hr IVPB Q12H [facility] Last Admin: 09/14/16 00:46 Dose: 166.6 mls/hr Insulin Detemir (Levemir) 70 unit SC ACBHS [facility] Last Admin: 09/13/16 22:49 Dose: Not Given Insulin Human Regular (Novolin R) 0 unit SC ACHS [facility] PRN Reason: Protocol Last Admin: 09/14/16 08:20 Dose: Not Given Lamotrigine (Lamictal) 200 mg PO BID [facility] Last Admin: 09/13/16 18:07 Dose: 200 mg Losartan Potassium (Cozaar) 50 mg PO DAILY [facility] Last Admin: 09/13/16 09:07 Dose: 50 mg Metformin HCl (Glucophage) 1,000 mg PO BID [facility] Last Admin: 09/13/16 18:29 Dose: Not Given Mirtazapine (Remeron) 30 mg PO HS [facility] Last Admin: 09/13/16 21:33 Dose: 30 mg Nicotine (Nicoderm Cq) 1 patch TD DAILY [facility] Last Admin: 09/13/16 09:09 Dose: 1 patch Oxycodone HCl (Oxycodone Immediate Release Tab) 5 mg PO Q6 PRN PRN Reason: Pain, severe (8-10) Last Admin: 09/13/16 09:07 Dose: 5 mg Rosuvastatin Calcium (Crestor) 10 mg PO [facility] Last Admin: 09/13/16 21:33 Dose: 10 mg Saccharomyces Boulardii (Florastor) 250 mg PO BID [facility] Last Admin: 09/13/16 18:07 Dose: 250 mg Zolpidem Tartrate (Ambien) 5 mg PO Q24H [facility] Last Admin: 09/13/16 23:27 Dose: 5 mg - Labs Labs: 09/14/16 07:02 09/14/16 07:02 - Constitutional Appears: Well, Non-toxic, No Acute Distress - Extremities Exam Additional comments: Vasc: DP/PT pulses palpable 2/4 B/L. CFT < 3 seconds to all digits. TG warm to warm. Mild non-pitting edema noted to right ankle and dorsum of right foot surrounding surgical incision site. Derm: Incision sites noted along length of right foot first ray from base of metatarsal to level of proximal phalanx. Second incision site noted at level of distal phalanx. All incision sites well coapted, sutures intact and no signs of dehiscence noted. No malodor, purulent drainage, erythema or other clinical signs of infection present. Surgical incision site noted along left hallux at level of toenail is well-coapted. Sutures intact, no drainage, no erythema, no malodor, no clinical signs of infection. Neuro: Epicritic and protective sensation grossly intact MSK: Pain on palpation noted grossly to right foot and ankle region. ROM limited due to pain - Neurological Exam Neurological Exam: Alert, Awake, Oriented x3 - Psychiatric Exam Psychiatric exam: Normal Affect, Normal Mood Assessment and Plan - Assessment and Plan (Free Text) Assessment: 50 year old female with infection at right first ray 9 days s/p right foot surgery and left foot nail surgery Plan: Patient seen and evaluated at bedside Vitals and charts reviewed; WBC 8.6, Afebrile Plan discussed with Dr. Deras in detail Still awaiting serum nicotine result from Qbix HA1C 15.1 applied DSD, kerlix to B/L feet Podiatry plans to DC patient to [facility] pending insurance approval discussed with Dr. Wallace- patient may go to infusion center for IV abx and recommends telavancin 750mg IV daily +cipro 500mg PO BID Dr. Deras will f/u as outpatient Patient stable per podiatry
[2016-09-14 09:49] VITALS: RESP 20
--- NOTE | 2016-09-14 10:14 | CP.PCM.DIS ---
Addendum entered and electronically signed by Kaela Hay DO 09/14/16 15:17: After discussion with Case Management, it was discovered that [facility] is not in network with patient's insurance. Patient was adamant about being discharged home. I spoke with Dr. Lieberman who recommended patient get outpatient antibiotic infusion on daily basis at infusion center. He stated that patient's foot is recovering well and patient can get daily IV infusions of antibiotics outpatient. I also spoke with Dr. Wallace who recommended patient get outpatient infusion of Televancin 750 mg IV QD for 5 weeks. Patient understands that she needs to return to infusion center on daily basis for these infusions. She also understands that she needs to get weekly blood work. Discharge instructions were changed to reflect the above mentioned events. Instructions are stated below. Patient is medically stable for discharge home. Patient will return for daily infusions to the infusion center at [facility]. Patient will be discharged with PICC line. Patient is to follow up with primary medical doctor within one week of discharge from subacute rehab. Patient should follow up with [facility], Dr. Lieberman upon discharge. Patient is to resume home medications as well as antibiotic Probiotic Florastor. Crestor is discontinued due to elevated LFTs. Per Dr. Nunes, patient is to continue Remeron 30 mg po qd and Xanax 2 mg BID. Patient will get daily infusions of Televancin 750 mg IV QD for 5 weeks. Patient is explained the location and timing of when she is scheduled for daily infusions. Patient will obtain the following labs weekly: CBC with diff, CMP, CRP. Patient is to have LFTs rechecked in a few days. Patient's insulin coverage was increased to Levemir 70 units [facility] coverage. Patient is advised to follow up with primary medical doctor regarding diabetic medication management for hyperglycemia. If symptoms return, go to the emergency room. Instructions explained to patient who is aware. Patient was given scripts for Remeron 30 mg po hs #30 days, levemir 100units/mL 70 units [facility]BHS dispense 2 vials. Patient is also given script for weekly blood work with CBC with diff, CMP and CRP. Original Note: <Kaela Hay - Last Filed: 09/14/16 10:12> Provider - Provider Date of Admission: 09/09/16 12:32 Attending physician: Russ Delcid MD Primary care physician: Dr. Coates Consults: Podiatry: Dr. Lieberman ID: Dr. Wallace Endocrinology: Dr. So Psych: Dr. Nunes Vascular surgery: Dr. Case Time Spent in preparation of Discharge (in minutes): 45 Diagnosis - Discharge Diagnosis (1) Hyperlipidemia Status: Chronic (2) PVD (peripheral vascular disease) Status: Chronic (3) Diabetic ulcer of foot associated with diabetes mellitus due to underlying condition, limited to breakdown of skin Status: Acute (4) COPD (chronic obstructive pulmonary disease) Status: Chronic Priority: Medium (5) HTN (hypertension) Status: Chronic (6) Right foot infection Status: Acute (7) Uncontrolled diabetes mellitus Status: Chronic Hospital Course - Lab Results Lab Results: Micro Results 09/09/16 13:15 Blood Blood Culture - Preliminary NO GROWTH AFTER 4 DAYS 09/09/16 22:00 Foot - Right Gram Stain - Final 09/09/16 22:00 Foot - Right Wound Culture - Final Staphylococcus Sp Coag Neg Most Recent Lab Values WBC 8.6 K/uL (4.8-10.8) 09/14/16 07:02 RBC 4.50 Mil/uL (3.80-5.20) 09/14/16 07:02 Hgb 12.6 g/dL (11.0-16.0) 09/14/16 07:02 Hct 39.2 % (34.0-47.0) 09/14/16 07:02 MCV 87.0 fL (81.0-99.0) 09/14/16 07:02 MCH 28.0 pg (27.0-31.0) 09/14/16 07:02 MCHC 32.2 g/dL (33.0-37.0) L 09/14/16 07:02 RDW 13.6 % (11.5-14.5) 09/14/16 07:02 Plt Count 198 K/uL (130-400) 09/14/16 07:02 MPV 9.8 fL (7.2-11.7) 09/14/16 07:02 Neut % (Auto) 45.3 % (50.0-75.0) L 09/14/16 07:02 Lymph % (Auto) 38.0 % (20.0-40.0) 09/14/16 07:02 Winn % (Auto) 6.3 % (0.0-10.0) 09/14/16 07:02 Eos % (Auto) 8.6 % (0.0-4.0) H 09/14/16 07:02 Baso % (Auto) 1.8 % (0.0-2.0) 09/14/16 07:02 Neut # 3.9 K/uL (1.8-7.0) 09/14/16 07:02 Lymph # 3.3 K/uL (1.0-4.3) 09/14/16 07:02 Winn # 0.5 K/uL (0.0-0.8) 09/14/16 07:02 Eos # 0.7 K/uL (0.0-0.7) 09/14/16 07:02 Baso # 0.2 K/uL (0.0-0.2) 09/14/16 07:02 ESR 25 mm/hr (0-20) H 09/11/16 07:17 Sodium 138 mmol/L (132-148) 09/14/16 07:02 Potassium 3.7 mmol/L (3.6-5.2) 09/14/16 07:02 Chloride 104 mmol/L (98-107) 09/14/16 07:02 Carbon Dioxide 25 mmol/L (22-30) 09/14/16 07:02 Anion Gap 13 (10-20) 09/14/16 07:02 BUN 16 mg/dL (7-17) 09/14/16 07:02 Creatinine 0.5 MG/DL (0.7-1.2) L 09/14/16 07:02 Est GFR ( Amer) > 60 09/14/16 07:02 Est GFR (Non-Af Amer) > 60 09/14/16 07:02 POC Glucose (mg/dL) 245 mg/dL (65-110) H 09/14/16 07:12 Random Glucose 269 mg/dL (65-105) H 09/14/16 07:02 Hemoglobin A1c 15.1 % (4.2-6.5) H 09/13/16 07:10 Calcium 8.9 mg/dl (8.6-10.4) 09/14/16 07:02 Phosphorus 4.0 mg/dL (2.5-4.5) 09/14/16 07:02 Magnesium 1.9 mg/dL (1.6-2.3) 09/14/16 07:02 Total Bilirubin 0.4 mg/dL (0.2-1.3) 09/14/16 07:02 AST 124 U/L (14-36) H D 09/14/16 07:02 ALT 145 U/L (9-52) H D 09/14/16 07:02 Alkaline Phosphatase 87 U/L (38-126) 09/14/16 07:02 Total Protein 5.8 g/dL (6.3-8.3) L 09/14/16 07:02 Albumin 3.3 g/dL (3.5-5.0) L 09/14/16 07:02 Globulin 2.5 gm/dL (2.2-3.9) 09/14/16 07:02 Albumin/Globulin Ratio 1.3 (1.0-2.1) 09/14/16 07:02 Triglycerides 359 mg/dL (0-149) H 09/13/16 07:10 Cholesterol 213 mg/dL (0-199) H 09/13/16 07:10 LDL Cholesterol Direct 106 mg/dL (0-129) 09/13/16 07:10 HDL Cholesterol 67 mg/dL (30-70) 09/13/16 07:10 Vancomycin Trough 8.2 ug/mL (5.0-10.0) 09/12/16 11:37 - Hospital Course Hospital Course: 50 year old female with past medical history of uncontrolled DM, HTN, HLD, COPD , bipolar disorder and insomnia was sent to hospital from her podiatrists office for right foot cellulitis. Patient recently had right foot surgery for a cellulitic infection. Patient was discharged from the hospital on . After being discharged, patient went to see podiatrists for follow up appointment. At that time, it was noted that patient still had cellulitis on foot and was sent in after failing outpatient PO treatment with antibiotics. On admission extremity arterial study showed mild occlusive disease. Podiatry, Dr. Lieberman was consulted and recommended local wound care. Vascular surgeon , Dr. Case was also consulted and patient had PICC line placed for prison IV access. ID was consulted and recommended IV antibiotic treatment with Vancomycin and Zosyn. During her stay, patient had severely uncontrolled blood glucose levels. Her insulin regimen was adjusted to Levemir 70 units [facility]. HgbA1c was 15.1 (increased from 12.6 in 02/2016). Endocrinology, Dr. So was consulted. Patient was instructed on the importance of adherence to her medications and having strict diet and exercise for better blood sugar control. Patient was deemed stable for discharge to [facility]. Discharge instructions: Patient is medically stable for discharge to [facility] subacute rehab. Patient is to follow up with primary medical doctor within one week of discharge from subacute rehab. Patient should follow up with [facility], Dr. Lieberman who will continue to follow in the rehab. Patient should follow their recommendations while there. Patient is to resume home medications as well as antibiotic Vancomycin for 6 weeks and Probiotic Florastor. Patient will obtain the following labs weekly: CBC with diff, CMP, CRP, and Vanco trough before every 4th administration of antibiotic. Patient's insulin coverage was increased to [facility] coverage. Patient is advised to follow up with primary medical doctor regarding diabetic medication management for hyperglycemia. If symptoms return, go to the emergency room. Instructions explained to patient who is aware. This is a brief summary of patients hospital stay. Please see EMR for full details. - Date & Time of H&P Date of H&P: 09/14/16 Time of H&P: 10:14 Discharge Exam - Head Exam Head Exam: NORMAL INSPECTION - Eye Exam Eye Exam: EOMI - ENT Exam ENT Exam: Mucous Membranes Moist - Respiratory Exam Respiratory Exam: Clear to PA & Lateral, NORMAL BREATHING PATTERN. absent: Accessory Muscle Use, Rales, Rhonchi, Wheezes, Respiratory Distress, Stridor - Cardiovascular Exam Cardiovascular Exam: REGULAR RHYTHM, +S1, +S2. absent: Diastolic murmur, Gallop , Rubs, Systolic Murmur - GI/Abdominal Exam GI & Abdominal Exam: Normal Bowel Sounds, Soft, Unremarkable. absent: Distended , Firm, Guarding, Rebound, Rigid, Tenderness - Extremities Exam Additional comments: no edema or tenderness - Neurological Exam Neurological exam: Alert, Oriented x3 - Psychiatric Exam Psychiatric exam: Normal Affect, Normal Mood - Skin Skin Exam: Dry, Intact, Normal Color, Warm Discharge Plan - Discharge Medications Prescriptions: Zolpidem Tartrate [Ambien] 10 mg PO HS #30 tablet - Follow Up Plan Condition: STABLE Disposition: HOME/ ROUTINE Instructions: Cellulitis (DC), Osteomyelitis (DC) Additional Instructions: Patient is medically stable for discharge home. Patient will return for daily infusions to the infusion center at [facility]. Patient will be discharged with PICC line. Patient is to follow up with primary medical doctor within one week of discharge from subacute rehab. Patient should follow up with [facility], Dr. Lieberman upon discharge. Patient is to resume home medications as well as antibiotic Probiotic Florastor. Crestor is discontinued due to elevated LFTs. Per Dr. Nunes, patient is to continue Remeron 30 mg po qd and Xanax 2 mg BID. Patient will get daily infusions of Televancin 750 mg IV QD for 5 weeks. Patient is explained the location and timing of when she is scheduled for daily infusions. Patient will obtain the following labs weekly: CBC with diff, CMP, CRP. Patient is to have LFTs rechecked in a few days. Patient's insulin coverage was increased to Levemir 70 units [facility] coverage. Patient is advised to follow up with primary medical doctor regarding diabetic medication management for hyperglycemia. If symptoms return, go to the emergency room. Instructions explained to patient who is aware. Referrals: Chaim Lieberman DPM [Doctor Podiatric Medicine] - Mando Cotaes MD [Staff Provider] - <Sharyn Busch V - Last Filed: 09/20/16 17:42> Provider - Provider Date of Admission: 09/09/16 12:32 Attending physician: Russ Delcid MD Hospital Course - Lab Results Lab Results: Micro Results 09/09/16 13:15 Blood Blood Culture - Final NO GROWTH AFTER 5 DAYS 09/09/16 13:15 Blood Gram Stain - Final TEST NOT PERFORMED 09/09/16 22:00 Foot - Right Gram Stain - Final 09/09/16 22:00 Foot - Right Wound Culture - Final Staphylococcus Sp Coag Neg Most Recent Lab Values WBC 8.6 K/uL (4.8-10.8) 09/14/16 07:02 RBC 4.50 Mil/uL (3.80-5.20) 09/14/16 07:02 Hgb 12.6 g/dL (11.0-16.0) 09/14/16 07:02 Hct 39.2 % (34.0-47.0) 09/14/16 07:02 MCV 87.0 fL (81.0-99.0) 09/14/16 07:02 MCH 28.0 pg (27.0-31.0) 09/14/16 07:02 MCHC 32.2 g/dL (33.0-37.0) L 09/14/16 07:02 RDW 13.6 % (11.5-14.5) 09/14/16 07:02 Plt Count 198 K/uL (130-400) 09/14/16 07:02 MPV 9.8 fL (7.2-11.7) 09/14/16 07:02 Neut % (Auto) 45.3 % (50.0-75.0) L 09/14/16 07:02 Lymph % (Auto) 38.0 % (20.0-40.0) 09/14/16 07:02 Winn % (Auto) 6.3 % (0.0-10.0) 09/14/16 07:02 Eos % (Auto) 8.6 % (0.0-4.0) H 09/14/16 07:02 Baso % (Auto) 1.8 % (0.0-2.0) 09/14/16 07:02 Neut # 3.9 K/uL (1.8-7.0) 09/14/16 07:02 Lymph # 3.3 K/uL (1.0-4.3) 09/14/16 07:02 Winn # 0.5 K/uL (0.0-0.8) 09/14/16 07:02 Eos # 0.7 K/uL (0.0-0.7) 09/14/16 07:02 Baso # 0.2 K/uL (0.0-0.2) 09/14/16 07:02 ESR 25 mm/hr (0-20) H 09/11/16 07:17 Sodium 138 mmol/L (132-148) 09/14/16 07:02 Potassium 3.7 mmol/L (3.6-5.2) 09/14/16 07:02 Chloride 104 mmol/L (98-107) 09/14/16 07:02 Carbon Dioxide 25 mmol/L (22-30) 09/14/16 07:02 Anion Gap 13 (10-20) 09/14/16 07:02 BUN 16 mg/dL (7-17) 09/14/16 07:02 Creatinine 0.5 MG/DL (0.7-1.2) L 09/14/16 07:02 Est GFR ( Amer) > 60 09/14/16 07:02 Est GFR (Non-Af Amer) > 60 09/14/16 07:02 POC Glucose (mg/dL) 254 mg/dL (65-110) H 09/14/16 12:03 Random Glucose 269 mg/dL (65-105) H 09/14/16 07:02 Hemoglobin A1c 15.1 % (4.2-6.5) H 09/13/16 07:10 Calcium 8.9 mg/dl (8.6-10.4) 09/14/16 07:02 Phosphorus 4.0 mg/dL (2.5-4.5) 09/14/16 07:02 Magnesium 1.9 mg/dL (1.6-2.3) 09/14/16 07:02 Total Bilirubin 0.4 mg/dL (0.2-1.3) 09/14/16 07:02 AST 124 U/L (14-36) H D 09/14/16 07:02 ALT 145 U/L (9-52) H D 09/14/16 07:02 Alkaline Phosphatase 87 U/L (38-126) 09/14/16 07:02 Total Protein 5.8 g/dL (6.3-8.3) L 09/14/16 07:02 Albumin 3.3 g/dL (3.5-5.0) L 09/14/16 07:02 Globulin 2.5 gm/dL (2.2-3.9) 09/14/16 07:02 Albumin/Globulin Ratio 1.3 (1.0-2.1) 09/14/16 07:02 Triglycerides 359 mg/dL (0-149) H 09/13/16 07:10 Cholesterol 213 mg/dL (0-199) H 09/13/16 07:10 LDL Cholesterol Direct 106 mg/dL (0-129) 09/13/16 07:10 HDL Cholesterol 67 mg/dL (30-70) 09/13/16 07:10 Vancomycin Trough 8.2 ug/mL (5.0-10.0) 09/12/16 11:37 Hepatitis A IgM Ab Negative (NEGATIVE) 09/14/16 11:06 Hep Bs Antigen Negative (NEGATIVE) 09/14/16 11:06 Hep B Core IgM Ab Negative (NEGATIVE) 09/14/16 11:06 Hepatitis C Antibody Negative (NEGATIVE) 09/14/16 11:06 Attending/Attestation - Attestation I have personally seen and examined this patient.: Yes I have fully participated in the care of the patient.: Yes I have reviewed all pertinent clinical information, including history, physical exam and plan: Yes Notes (Text): Hospitalist Covering Dr. Coates's service This is late computer entry for 09/14/16. Patient seen, examined, and case discussed with day-time resident. Patient is medically stable for discharge. Patient's insurances was recently changed over the past month and cannot cover [facility] per original discharge plan. Patient arranged for outpatient transfusion center for IV Abx. Plan discussed with infectious and podiatry consultants. Patient to receive IV infusions of Televancin 750 mg IV QDaily for 5 weeks. Patient discharged with PICC line to have have removed upon completion for 5 weeks of IV abx. Patient understands that she needs to return to infusion center on daily basis for these infusions. She also understands that she needs to get weekly blood work which includes: CBC with diff, CMP, CRP. Patient is to have LFTs rechecked in a few days. Crestor discontinued secondary to elevated Liver function tests. Patient's psychiatrist to continue Remeron and Xanax. Patient's insulin coverage was increased to Levemir 70 units [facility] coverage. Patient is advised to follow up with primary medical doctor regarding diabetic medication management for hyperglycemia. If symptoms return, go to the emergency room. Instructions explained to patient who is aware. Patient was given scripts for Remeron 30 mg po hs #30 days, levemir 100units/mL 70 units [facility] dispense 2 vials. Patient is also given script for weekly blood work with CBC with diff, CMP and CRP. This is a summary of patient's hospitalization. Please see EMR for further details. Patient to follow-up with PMD, Dr Mando Coates.
[2016-09-14] MEDS: Saccharomyces Boulardi 250 mg Cap PO SCH (10:50)
[2016-09-14] MEDS: Insulin Detemir 100 units/ml Vial (Levemir) SC SCH (10:51)
--- NOTE | 2016-09-14 11:46 | CP.PCM.CON ---
History of Present Illness - History of Present Illness History of Present Illness: This is a case of 50 year old male with hx of bipolar disorder and uncontrolled DM currently admitted to for chroic right foot ulcer and dx to have osteomyelitis refered by by Dr. Coates for comanagment. Patient has been noncompliant with her diabetic diet restriction and her latest HgbA1c is 15.1. Patient has been followed by Dr. Seaman and supposed to have insulin pump. Patient was seen in my office and was talking Ambien 10 mg po hs, Remeron 45 mg po hs, Lamictal 200 mg po bid and Xanax 2 mg po bid.Patient is still labile and anxious and states she will be going today to [facility] for [facility] and 4-6 weeks of IV antibiotics. Still smoking cigarettes despite having hx of TIA in the past. Past Psych Hx- hx of bipolar disorder Medical HX- hx of DM, HTN, TIA, Osteomyelitis of right foot Psychosocial HX - lives with family. MSE- fairly developed famale, alert and oriented x3. Mood is labile. Affect is reactive. Speech is spontaneous. TP- coherent TC- no si or hi. No psychosis. Patient will be going to [facility] for [facility] and IV antibiotics tx. Attention and Memory- fair. Insight and Judgment limited. Impulse control fair. Review of Systems - Constitutional Constitutional: Fatigue, Weakness - EENT Additional comments: no blurring of vision - Cardiovascular Additional comments: no chest pain, no palpitations - Gastrointestinal Additional comments: has very good appetite, no nausea or vomiting - Genitourinary Additional comments: no dysuria - Musculoskeletal Additional comments: feels weak - Integumentary Additional comments: no pruritus - Psychiatric Psychiatric: Abnormal Sleep Pattern, Anxiety, Mood Swings, Paranoia - Endocrine Endocrine: Fatigue, Polydipsia, Polyphagia, Polyuria Past Patient History - Infectious Disease Hx of Infectious Diseases: None - Past Medical History & Family History Past Medical History?: Yes - Past Social History Smoking Status: Unknown If Ever Smoked - CARDIAC Hx Hypercholesterolemia: Yes Hx Hypertension: Yes - PULMONARY Hx Asthma: Yes ("MILD INTERMITTENT ASTHMA,UNCOMPLICATED") - NEUROLOGICAL Hx Seizures: Yes (last one 07/2015) Hx Transient Ischemic Attacks (TIA): Yes (05/2012, 02/2015) - HEENT Hx HEENT Problems: No Other/Comment: HX: "INFECTIVE OITIS EXTERNAL, LEFT EAR". HX: "SINUS SURGERY" - RENAL Hx Chronic Kidney Disease: No - ENDOCRINE/METABOLIC Hx Endocrine Disorders: Yes Hx Diabetes Mellitus Type 2: Yes - HEMATOLOGICAL/ONCOLOGICAL Hx Blood Disorders: Yes Hx Blood Transfusions: Yes (1993) Hx Blood Transfusion Reaction: Yes (Reaction with Fever,Vomiting.) - INTEGUMENTARY Hx Dermatological Problems: Yes Other/Comment: HX: LEFT BREAT CYST - MUSCULOSKELETAL/RHEUMATOLOGICAL Hx Arthritis: Yes (right foot 1st digit) - GASTROINTESTINAL Hx Gastrointestinal Disorders: Yes Hx Gastroesophageal Reflux: Yes - GENITOURINARY/GYNECOLOGICAL Hx Genitourinary Disorders: No - PSYCHIATRIC Hx Anxiety: Yes Hx Bipolar Disorder: Yes Hx Depression: Yes Hx Schizophrenia: Yes Hx Substance Use: No - SURGICAL HISTORY Hx Appendectomy: Yes (34 years ago) - ANESTHESIA Hx Anesthesia: Yes Hx Anesthesia Reactions: No Hx Malignant Hyperthermia: No Meds Home Medications: Home Medication List Medication Instructions Recorded Confirmed Type Insulin Detemir [Levemir] 65 unit SC [facility] unit 09/12/16 Rx Saccharomyces Boulardi [Florastor] 250 mg PO BID cap 09/12/16 Rx Vancomycin [Vancomycin Inj] 1,000 mg IVPB Q12H vial 09/12/16 Rx ALPRAZolam [Xanax] 1 mg PO DAILY PRN #0 tab 09/14/16 09/14/16 Rx ALPRAZolam [Xanax] 2 mg PO Q12 tab 09/14/16 Rx Glimepiride [amaRYL] 4 mg PO ACBD tab 09/14/16 Rx Insulin Detemir [Levemir] 70 unit SC [facility] unit 09/14/16 Rx Insulin Human Regular [Novolin R] 0 unit SC ACHS unit 09/14/16 Rx Zolpidem [Ambien] 5 mg PO HS tab 09/14/16 Rx oxyCODONE [oxyCODONE Immediate 5 mg PO Q6 PRN tab 09/14/16 Rx Release Tab] Allergies/Adverse Reactions: Allergies Allergy/AdvReac Type Severity Reaction Status Date / Time iodine dye Allergy RASH Uncoded 09/09/16 12:11 - Medications Medications: Current Medications Albuterol/Ipratropium (Duoneb 3 Mg/0.5 Mg (3 Ml) Ud) 3 ml INH RQ6 PRN PRN Reason: Shortness of Breath Alprazolam (Xanax) 2 mg PO Q12 DINAH Aspirin (Ecotrin) 81 mg PO DAILY [facility] Last Admin: 09/14/16 10:51 Dose: 81 mg Famotidine (Pepcid) 20 mg PO DAILY [facility] Last Admin: 09/14/16 10:50 Dose: 20 mg Glimepiride (Amaryl) 4 mg PO ACBD [facility] Last Admin: 09/14/16 10:51 Dose: 4 mg Piperacillin Sod/Tazobactam Sod (Zosyn 3.375 Gm Iv Premix) 3.375 gm in 50 mls @ 100 mls/hr IVPB Q6 [facility] Last Admin: 09/14/16 05:29 Dose: 100 mls/hr Vancomycin HCl 1,000 mg/ (Sodium Chloride) 250 mls @ 166.6 mls/hr IVPB Q12H [facility] Last Admin: 09/14/16 00:46 Dose: 166.6 mls/hr Insulin Detemir (Levemir) 70 unit SC [facility] Last Admin: 09/14/16 10:51 Dose: 70 unit Insulin Human Regular (Novolin R) 0 unit SC [facility] PRN Reason: Protocol Last Admin: 09/14/16 08:20 Dose: Not Given Lamotrigine (Lamictal) 200 mg PO BID [facility] Last Admin: 09/14/16 10:50 Dose: 200 mg Losartan Potassium (Cozaar) 50 mg PO DAILY [facility] Last Admin: 09/14/16 10:51 Dose: 50 mg Metformin HCl (Glucophage) 1,000 mg PO BID [facility] Last Admin: 09/13/16 18:29 Dose: Not Given Mirtazapine (Remeron) 30 mg PO [facility] Last Admin: 09/13/16 21:33 Dose: 30 mg Oxycodone HCl (Oxycodone Immediate Release Tab) 5 mg PO Q6 PRN PRN Reason: Pain, severe (8-10) Last Admin: 09/13/16 09:07 Dose: 5 mg Saccharomyces Boulardii (Florastor) 250 mg PO BID [facility] Last Admin: 09/14/16 10:50 Dose: 250 mg Zolpidem Tartrate (Ambien) 5 mg PO [facility] Results - Vital Signs Recent Vital Signs: Last Vital Signs Temp 97.8 F 09/14/16 08:00 Pulse 85 09/14/16 08:00 Resp 20 09/14/16 08:00 BP 117/79 09/14/16 08:00 Pulse Ox 99 09/14/16 08:00 - Labs Result Diagrams: 09/14/16 07:02 09/14/16 07:02 Labs: Laboratory Results - last 24 hr 09/10/16 09/10/16 09/10/16 14:21 16:51 17:10 WBC RBC Hgb Hct MCV MCH MCHC RDW Plt Count MPV Neut % (Auto) Lymph % (Auto) Oliver % (Auto) Eos % (Auto) Baso % (Auto) Neut # Lymph # Oliver # Eos # Baso # Sodium Potassium Chloride Carbon Dioxide Anion Gap BUN Creatinine Est GFR ( Amer) Est GFR (Non-Af Amer) POC Glucose (mg/dL) 227 H 62 L 88 Random Glucose Calcium Phosphorus Magnesium Total Bilirubin AST ALT Alkaline Phosphatase Total Protein Albumin Globulin Albumin/Globulin Ratio 09/13/16 09/13/16 09/13/16 11:15 17:17 17:29 WBC RBC Hgb Hct MCV MCH MCHC RDW Plt Count MPV Neut % (Auto) Lymph % (Auto) Oliver % (Auto) Eos % (Auto) Baso % (Auto) Neut # Lymph # Oliver # Eos # Baso # Sodium Potassium Chloride Carbon Dioxide Anion Gap BUN Creatinine Est GFR ( Amer) Est GFR (Non-Af Amer) POC Glucose (mg/dL) 178 H 69 66 Random Glucose Calcium Phosphorus Magnesium Total Bilirubin AST ALT Alkaline Phosphatase Total Protein Albumin Globulin Albumin/Globulin Ratio 09/13/16 09/14/16 09/14/16 21:30 07:02 07:02 WBC 8.6 RBC 4.50 Hgb 12.6 Hct 39.2 MCV 87.0 MCH 28.0 MCHC 32.2 L RDW 13.6 Plt Count 198 MPV 9.8 Neut % (Auto) 45.3 L Lymph % (Auto) 38.0 Oliver % (Auto) 6.3 Eos % (Auto) 8.6 H Baso % (Auto) 1.8 Neut # 3.9 Lymph # 3.3 Oliver # 0.5 Eos # 0.7 Baso # 0.2 Sodium 138 Potassium 3.7 Chloride 104 Carbon Dioxide 25 Anion Gap 13 BUN 16 Creatinine 0.5 L Est GFR ( Amer) > 60 Est GFR (Non-Af Amer) > 60 POC Glucose (mg/dL) 136 H Random Glucose 269 H Calcium 8.9 Phosphorus 4.0 Magnesium 1.9 Total Bilirubin 0.4 AST 124 H D ALT 145 H D Alkaline Phosphatase 87 Total Protein 5.8 L Albumin 3.3 L Globulin 2.5 Albumin/Globulin Ratio 1.3 09/14/16 07:12 WBC RBC Hgb Hct MCV MCH MCHC RDW Plt Count MPV Neut % (Auto) Lymph % (Auto) Oliver % (Auto) Eos % (Auto) Baso % (Auto) Neut # Lymph # Oliver # Eos # Baso # Sodium Potassium Chloride Carbon Dioxide Anion Gap BUN Creatinine Est GFR ( Amer) Est GFR (Non-Af Amer) POC Glucose (mg/dL) 245 H Random Glucose Calcium Phosphorus Magnesium Total Bilirubin AST ALT Alkaline Phosphatase Total Protein Albumin Globulin Albumin/Globulin Ratio Assessment & Plan - Assessment and Plan (Free Text) Assessment: Bipolar disorder- mixed Uncontrolled DM, diabetic foot ulcer, HTN, TIA, Osteomyelitis Nicotine dependence Plan: Agree to lower dose of Remeron to 30 mg po hs as her LFTS's are elevated. Change Ambien to 10 mg po hs for insomnia. Keep Lamictal 200 mg po bid for bipolar disorder Xanax 2 mg po bid for anxiety. Psych stable to go to [facility] and IV antibiotics tx. I will follow her there as needed - Date & Time Date: 09/14/16 Time: 11:58
[2016-09-14 11:51] LABS: HEPATITIS B SURFACE AG NEGATIVE (NEGATIVE)
[2016-09-14 11:56] LABS: HEPATITIS A IGM NEGATIVE (NEGATIVE)
[2016-09-14 11:57] LABS: HEPATITIS B CORE AB NEGATIVE (NEGATIVE)
[2016-09-14 12:09] LABS: HEPATITIS C ANTIBODY NEGATIVE (NEGATIVE)
--- NOTE | 2016-09-14 16:35 | CP.PCM.PN ---
Subjective - Date & Time of Evaluation Date of Evaluation: 09/14/16 Time of Evaluation: 08:00 - Subjective Subjective: await poss d/c orders for iv antibiotics given will follow Objective - Vital Signs/Intake and Output Vital Signs (last 24 hours): Temp Pulse Resp BP Pulse Ox 97.8 F 85 20 117/79 99 09/14/16 08:00 09/14/16 08:00 09/14/16 08:00 09/14/16 08:00 09/14/16 08:00 Intake and Output: 09/14/16 09/14/16 06:59 18:59 Intake Total 840 650 Balance 840 650 - Medications Medications: Current Medications Alprazolam (Xanax) 2 mg PO Q12 [facility] Aspirin (Ecotrin) 81 mg PO DAILY [facility] Last Admin: 09/14/16 10:51 Dose: 81 mg Famotidine (Pepcid) 20 mg PO DAILY [facility] Last Admin: 09/14/16 10:50 Dose: 20 mg Glimepiride (Amaryl) 4 mg PO ACBD [facility] Last Admin: 09/14/16 10:51 Dose: 4 mg Piperacillin Sod/Tazobactam Sod (Zosyn 3.375 Gm Iv Premix) 3.375 gm in 50 mls @ 100 mls/hr IVPB Q6 [facility] Last Admin: 09/14/16 12:01 Dose: 100 mls/hr Vancomycin HCl 1,000 mg/ (Sodium Chloride) 250 mls @ 166.6 mls/hr IVPB Q12H [facility] Last Admin: 09/14/16 12:01 Dose: 166.6 mls/hr Insulin Detemir (Levemir) 70 unit [facility] Last Admin: 09/14/16 10:51 Dose: 70 unit Insulin Human Regular (Novolin R) [address] [facility] PRN Reason: Protocol Last Admin: 09/14/16 12:10 Dose: Not Given Lamotrigine (Lamictal) 200 mg PO BID [facility] Last Admin: 09/14/16 10:50 Dose: 200 mg Losartan Potassium (Cozaar) 50 mg PO DAILY [facility] Last Admin: 09/14/16 10:51 Dose: 50 mg Metformin HCl (Glucophage) 1,000 mg PO BID [facility] Last Admin: 09/13/16 18:29 Dose: Not Given Mirtazapine (Remeron) 30 mg PO HS [facility] Last Admin: 09/13/16 21:33 Dose: 30 mg Oxycodone HCl (Oxycodone Immediate Release Tab) 5 mg PO Q6 PRN PRN Reason: Pain, severe (8-10) Last Admin: 09/13/16 09:07 Dose: 5 mg Saccharomyces Boulardii (Florastor) 250 mg PO BID [facility] Last Admin: 09/14/16 10:50 Dose: 250 mg Zolpidem Tartrate (Ambien) 5 mg PO [facility] - Labs Labs: 09/14/16 07:02 09/14/16 07:02 Assessment and Plan (1) Cellulitis Status: Acute (2) Diabetic ulcer of foot associated with diabetes mellitus due to underlying condition, limited to breakdown of skin Status: Acute (3) Uncontrolled diabetes mellitus Status: Acute (4) COPD (chronic obstructive pulmonary disease) Status: Chronic (5) Diabetes Status: Acute
[2016-09-14 17:09] VITALS: BP 109/68; PULSE 88; TEMP 98.7; O2SAT 98
== END 2016-09-14 16:45 | disposition home or self-care (01) | DRG 638 ==
LOC: C.ER 12:04 → C.9E 12:32 → C.3T 12:47
PROVIDERS: ADMIT Internal Medicine Pulmonary Disease; ATTEND Internal Medicine
PROC: 02HV33Z Insertion of Infusion Device into Superior Vena Cava, Percutaneous Approach (ICD-10-PCS; principal; 2016-09-09)
DX: E11.621 Type 2 diabetes mellitus with foot ulcer (principal); L03.115 Cellulitis of right lower limb; L97.511 Non-pressure chronic ulcer of other part of right foot limited to breakdown of skin; E11.40 Type 2 diabetes mellitus with diabetic neuropathy, unspecified; E11.65 Type 2 diabetes mellitus with hyperglycemia; J44.9 Chronic obstructive pulmonary disease, unspecified; I10 Essential (primary) hypertension; K21.9 Gastro-esophageal reflux disease without esophagitis; E78.5 Hyperlipidemia, unspecified; I73.9 Peripheral vascular disease, unspecified; F31.9 Bipolar disorder, unspecified; E78.00 Pure hypercholesterolemia, unspecified; F17.210 Nicotine dependence, cigarettes, uncomplicated; J45.20 Mild intermittent asthma, uncomplicated; Z86.73 Personal history of transient ischemic attack (TIA), and cerebral infarction without residual deficits; Z79.82 Long term (current) use of aspirin; Z79.2 Long term (current) use of antibiotics; Z79.84 Long term (current) use of oral hypoglycemic drugs

== ENCOUNTER 2017-01-04 23:23 | Emergency (ER) | payer MEDICARE, MEDICAID ==
[2017-01-04 23:23] VITALS: BMI 25.8
[2017-01-05 00:20] VITALS: RESP 20
[2017-01-05] MEDS ORDERED: Sodium Chloride 0.9% 1,000 ML IV ONE (00:33)
--- NOTE | 2017-01-05 00:36 | C.PDOC ---
History Of Present Illness Patient with known history of poorly controlled diabetes c/o labial pain and swelling since yesterday. States that she always has urinary frequency but now has swelling of the labia with pain radiating into her LLQ. She has no vaginal bleeding or discharge. She denies back pain or fever. She started using a vaginal cream without relief. Time Seen by Provider: 01/05/17 00:27 Chief Complaint (Nursing): Female Genitourinary History Per: Patient History/Exam Limitations: no limitations Onset/Duration Of Symptoms: Days (2) Current Symptoms Are (Timing): Still Present Severity: Moderate Current Diabetic Medications: Insulin, Oral Medication Past Medical History Reviewed: Historical Data Vital Signs: Last Vital Signs Temp 98.3 F 01/05/17 00:16 Pulse 87 01/05/17 00:16 Resp 20 01/05/17 00:16 BP 121/87 01/05/17 00:16 Pulse Ox 98 01/05/17 00:38 - Medical History PMH: Anxiety, Arthritis (right foot 1st digit), Asthma ("MILD INTERMITTENT ASTHMA,UNCOMPLICATED"), Back Problems, Bipolar Disorder, Depression, Diabetes ( Poorly controlled), HTN, Hypercholesterolemia, Schizophrenia, Seizures (last one 07/2015), TIA (05/2012, 02/2015) Denies: Chronic Kidney Disease Surgical History: Appendectomy (34 years ago) Other Surgeries: Hysterectomy - [facility] Procedures INSERT OF MONITOR DEV INTO CHEST SUBCU/FASCIA, PERC APPROACH (02/23/15) INSERTION OF INFUSION DEV INTO SUP VENA CAVA, PERC APPROACH (09/09/16) Family History: States: Unknown Family Hx - Social History Hx Tobacco Use: Yes (heavy smoker) Hx Alcohol Use: No Hx Substance Use: No - Immunization History Hx Tetanus Toxoid Vaccination: Yes (2014) Hx Influenza Vaccination: Yes (2016) Hx Pneumococcal Vaccination: Yes (2016) Review Of Systems Except As Marked, All Systems Reviewed And Found Negative. Genitourinary: Positive for: Frequency, Other (perineal pain) Physical Exam - Physical Exam Appears: Well, No Acute Distress Skin: Normal Color, Warm Chest: Symmetrical Cardiovascular: Rhythm Regular Respiratory: Normal Breath Sounds Gastrointestinal/Abdominal: Bowel Sounds, Soft, Tenderness (LLQ), No Mass, No Distention, No Guarding, No Rebound Back: Normal Inspection, No CVA Tenderness Pelvic: No Normal External Exam, No Vaginal Bleeding, No Vaginal Discharge, No Adnexal Tenderness, No Mass, Other (labia and perineum swollen and inflamed with white exudate. Multiple satellite lesions present on perineum and perianal area.) ED Course And Treatment O2 Sat by Pulse Oximetry: 98 Pulse Ox Interpretation: Normal Disposition - Disposition Disposition Time: 00:46 Condition: STABLE Forms: [facility] (Panamanian) - Clinical Impression Clinical Impression: Diabetic complication, Hyperglycemia, Vaginitis Physician Patient Turnover Patient Signed Over To: Willy Baum DO Handoff Comments: pending fluids and labs
[2017-01-05] MEDS ORDERED: Clotrimazole/Betamethasone Cream(15 gm) TOP STA (00:44)
[2017-01-05 00:54] LABS: RBC URINE 10 /hpf (0-3); URINE BACTERIA RARE (<OCC); URINE BILIRUBIN NEGATIVE (NEGATIVE); URINE BLOOD 1+ (NEGATIVE); URINE COLOR Straw (YELLOW); URINE GLUCOSE (UA) 3+ mg/dL (Normal); URINE KETONE 1+ mg/dL (NEGATIVE); URINE LEUKOCYTE ESTERASE 2+ Leu/uL (Negative); URINE PROTEIN NEGATIVE (NEGATIVE); URINE UROBILINOGEN NORMAL mg/dL (0.2-1.0); WBC URINE 15 /hpf (0-5)
[2017-01-05] MEDS ORDERED: Sodium Chloride 0.9% 1,000 ML ONE (01:08)
[2017-01-05 01:26] LABS: BASO # 0.1 K/uL (0.0-0.2); BASO % 1.4 % (0.0-2.0); EOS # 0.5 K/uL (0.0-0.7); EOS % 4.4 % (0.0-4.0); HEMATOCRIT 42.1 % (34.0-47.0); LYMPH # 4.1 K/uL (1.0-4.3); LYMPH % 39.2 % (20.0-40.0); MEAN CELL VOLUME 82.7 fL (81.0-99.0); MEAN CORPUSCULAR HEMOGLOBIN 27.8 pg (27.0-31.0); MEAN CORPUSCULAR HGB CONC 33.6 g/dL (33.0-37.0); MEAN PLATELET VOLUME 11.3 fL (7.2-11.7); MONO # 0.6 K/uL (0.0-0.8); MONO % 6.1 % (0.0-10.0); NRBC % 1.2 % (0.0-2.0); RED CELL DISTRIBUTION WIDTH 13.5 % (11.5-14.5); WHITE BLOOD COUNT 10.4 K/uL (4.8-10.8)
[2017-01-05 01:28] LABS: CHLORIDE 96 mmol/L (98-107)
[2017-01-05 01:29] LABS: POTASSIUM 3.8 mmol/L (3.6-5.2); SODIUM 132 mmol/L (132-148)
[2017-01-05 01:31] LABS: ALB/GLOB RATIO 1.2 (1.0-2.1); ALKALINE PHOSPHATASE 73 U/L (38-126); AST/SGOT 14 U/L (14-36); BILIRUBIN,TOTAL 0.6 mg/dL (0.2-1.3); CARBON DIOXIDE 23 mmol/L (22-30); GFR AFRICAN-AMERICAN > 60; TOTAL PROTEIN 7.3 g/dL (6.3-8.3)
[2017-01-05 01:32] LABS: ALT/SGPT 27 U/L (9-52); BLOOD UREA NITROGEN 14 mg/dL (7-17); CALCIUM 9.3 mg/dl (8.6-10.4)
[2017-01-05 01:38] LABS: GLUCOSE,RANDOM 444 mg/dL (65-105)
[2017-01-05] MEDS ORDERED: (Novolin R) Insulin Human Regular 100 units/ml vial IV STA (01:39)
[2017-01-05] MEDS ORDERED: (Novolin R) Insulin Human Regular 100 units/ml vial ONE (01:51)
[2017-01-05 02:58] VITALS: BP 123/78; PULSE 85; TEMP 98.2; O2SAT 99
== END 2017-01-05 02:58 | disposition home or self-care (01) ==
LOC: C.ER 23:23
DX: N76.0 Acute vaginitis (principal); E11.65 Type 2 diabetes mellitus with hyperglycemia; Z79.4 Long term (current) use of insulin
CPT/HCPCS: 80053; 81001; 82948; 85025; 87086; 96361; 96374; 99285; J7040

== ENCOUNTER 2017-01-23 16:57 | Emergency (ER) | payer MEDICARE, MEDICAID ==
[2017-01-23 16:58] VITALS: BMI 25.8
[2017-01-23 18:31] LABS: BASO # 0.1 K/uL (0.0-0.2); BASO % 0.8 % (0.0-2.0); EOS # 0.3 K/uL (0.0-0.7); EOS % 2.5 % (0.0-4.0); LYMPH # 2.7 K/uL (1.0-4.3); LYMPH % 23.7 % (20.0-40.0); MEAN CORPUSCULAR HEMOGLOBIN 27.5 pg (27.0-31.0); MEAN CORPUSCULAR HGB CONC 33.2 g/dL (33.0-37.0); MEAN PLATELET VOLUME 9.8 fL (7.2-11.7); MONO # 0.8 K/uL (0.0-0.8); MONO % 6.8 % (0.0-10.0); NRBC % 0.1 % (0.0-2.0); WHITE BLOOD COUNT 11.5 K/uL (4.8-10.8)
[2017-01-23 18:45] LABS: CHLORIDE 93 mmol/L (98-107)
[2017-01-23 18:46] LABS: POTASSIUM 4.3 mmol/L (3.6-5.2); SODIUM 129 mmol/L (132-148)
[2017-01-23 18:47] LABS: INR 0.9
[2017-01-23 18:48] LABS: ALB/GLOB RATIO 1.6 (1.0-2.1); ALKALINE PHOSPHATASE 94 U/L (38-126); ALT/SGPT 27 U/L (9-52); AST/SGOT 12 U/L (14-36); BLOOD UREA NITROGEN 11 mg/dL (7-17); CARBON DIOXIDE 23 mmol/L (22-30); GFR AFRICAN-AMERICAN > 60; TOTAL PROTEIN 6.9 g/dL (6.3-8.3)
[2017-01-23 18:49] LABS: CALCIUM 8.8 mg/dl (8.6-10.4)
[2017-01-23 18:51] LABS: GLUCOSE,RANDOM 483 mg/dL (65-105)
[2017-01-23 19:00] LABS: RBC URINE < 1 /hpf (0-3); URINE BILIRUBIN NEGATIVE (NEGATIVE); URINE BLOOD NEGATIVE (NEGATIVE); URINE COLOR Colorless (YELLOW); URINE GLUCOSE (UA) 3+ mg/dL (Normal); URINE KETONE 2+ mg/dL (NEGATIVE); URINE LEUKOCYTE ESTERASE NEG Leu/uL (Negative); URINE PROTEIN NEGATIVE (NEGATIVE); URINE UROBILINOGEN NORMAL mg/dL (0.2-1.0); WBC URINE < 1 /hpf (0-5)
[2017-01-23] MEDS ORDERED: (Novolin R) Insulin Human Regular 100 units/ml vial IV ONE (19:03)
[2017-01-23] MEDS ORDERED: Sodium Chloride 0.9% 1,000 ML IV ONE (19:20)
[2017-01-23] MEDS ORDERED: (Novolin R) Insulin Human Regular 100 units/ml vial ONE (19:39)
[2017-01-23 19:47] VITALS: BP 127/67
[2017-01-23] MEDS ORDERED: Sodium Chloride 0.9% 1,000 ML ONE (20:15)
--- NOTE | 2017-01-23 20:42 | C.PDOC ---
History Of Present Illness 51 year old female presents to the ED c/o right ear pain, body aches, burning in her chest and epigastric region, abdominal pain that started today. Patient denies SOB, cough, vomiting/diarrheas, dysuria/hematuria. Time Seen by Provider: 01/23/17 17:42 Chief Complaint (Nursing): Chest Pain History Per: Patient History/Exam Limitations: no limitations Onset/Duration Of Symptoms: Hrs Current Symptoms Are (Timing): Still Present Severity: Mild Quality: Burning (Chest and epigastric area) Modifying Factors: None Recent travel outside of the [place]: No Additional History Per: Patient Past Medical History Reviewed: Historical Data, Nursing Documentation, Vital Signs Vital Signs: Last Vital Signs Temp 98.1 F 01/23/17 17:06 Pulse 104 H 01/23/17 19:45 Resp 24 01/23/17 19:45 BP 127/67 01/23/17 19:45 Pulse Ox 99 01/23/17 20:59 - Medical History PMH: Anxiety, Arthritis (right foot 1st digit), Asthma ("MILD INTERMITTENT ASTHMA,UNCOMPLICATED"), Back Problems, Bipolar Disorder, Depression, Diabetes ( Poorly controlled), HTN, Hypercholesterolemia, Schizophrenia, Seizures (last one 07/2015), TIA (05/2012, 02/2015) Surgical History: Appendectomy (34 years ago) - [employer] Procedures INSERT OF MONITOR DEV INTO CHEST SUBCU/FASCIA, PERC APPROACH (02/23/15) INSERTION OF INFUSION DEV INTO SUP VENA CAVA, PERC APPROACH (09/09/16) Family History: States: No Known Family Hx - Social History Hx Tobacco Use: Yes (heavy smoker) Hx Alcohol Use: No Hx Substance Use: No - Immunization History Hx Tetanus Toxoid Vaccination: Yes (2014) Hx Influenza Vaccination: Yes (2015) Hx Pneumococcal Vaccination: Yes (2015) Review Of Systems Except As Marked, All Systems Reviewed And Found Negative. Constitutional: Positive for: Chills. Negative for: Fever ENT: Positive for: Ear Pain Cardiovascular: Negative for: Chest Pain, Palpitations Respiratory: Negative for: Cough, Shortness of Breath Gastrointestinal: Positive for: Abdominal Pain. Negative for: Nausea, Vomiting , Diarrhea Genitourinary: Negative for: Dysuria, Hematuria Physical Exam - Physical Exam Appears: Well, Non-toxic, Other (Anxious appearing ) Skin: Normal Color, Warm, Dry Head: Normacephalic Ear(s): Left: TM Obscured By Wax, Right: TM Erythema (Bulging ) Nose: No Discharge Oral Mucosa: Moist Throat: Normal, No Erythema, No Exudate Neck: Supple Cardiovascular: Rhythm Regular (Mildly tachycardia) Respiratory: Normal Breath Sounds, No Rales, No Rhonchi, No Wheezing Gastrointestinal/Abdominal: Bowel Sounds, Soft, Tenderness (Mild diffuse TTP, (- ) Tristan's, (-) McBurney's), No Guarding, No Rebound Back: Normal Inspection, No CVA Tenderness Extremity: Normal ROM, No Pedal Edema, No Calf Tenderness, No Swelling Neurological/Psych: Oriented x3 Gait: Steady ED Course And Treatment - Laboratory Results Result Diagrams: 01/23/17 18:23 01/23/17 18:23 ECG: Interpreted By Me, Viewed By Me ECG Rhythm: Sinus Tachycardia Interpretation Of ECG: Sinus tachycardia at 106 BPM, normal axis, no acute ST or T wave changes Rate From EC O2 Sat by Pulse Oximetry: 99 (On RA) Pulse Ox Interpretation: Normal Progress Note: Plan: Blood work, EKG, CXR ordered and reviewed. Patient given IV zofran, IV NS bolus, IV toradol. Amoxicillin PO given for otitis media. IV insulin given for hyperglycemia. Prior to my reassessment, patient apparently had a sandwich and then [employer], as well as a cookie and soda. Patient takes Lantus at night - will discharge home with antibiotics for otitis media. Disposition - Disposition Referrals: Mando Coates MD [Staff Provider] - Disposition: HOME/ ROUTINE Condition: STABLE Additional Instructions: FOLLOW UP WITH YOUR DOCTOR IN 1-2 DAYS USE ANTIBIOTICS UNTIL FINISHED DRINK PLENTY OF FLUIDS RETURN TO ER IF SYMPTOMS WORSEN Prescriptions: Amoxicillin 875 mg PO BID #14 tab Mometasone Furoate [Nasonex] 1 spray NS DAILY #1 bottle Naproxen 375 mg PO BID PRN #20 tablet PRN Reason: pain Instructions: Otitis Media (ED) Forms: [facility] (Luxembourger) Print Language: PALAUAN - Clinical Impression Clinical Impression: Otitis media - Scribe Statement The provider has reviewed the documentation as recorded by the Scribe Mahendra Lainez All medical record entries made by the Scribe were at my direction and personally dictated by me. I have reviewed the chart and agree that the record accurately reflects my personal performance of the history, physical exam, medical decision making, and the department course for this patient. I have also personally directed, reviewed, and agree with the discharge instructions and disposition.
--- NOTE | 2017-01-23 20:46 | C.PDOC ---
Time Seen by Provider: 01/23/17 17:42 Chief Complaint (Nursing): Chest Pain Past Medical History Vital Signs: Last Vital Signs Temp 98.1 F 01/23/17 17:06 Pulse 104 H 01/23/17 19:45 Resp 24 01/23/17 19:45 BP 127/67 01/23/17 19:45 Pulse Ox 99 01/23/17 17:06 - Medical History PMH: Anxiety, Arthritis (right foot 1st digit), Asthma ("MILD INTERMITTENT ASTHMA,UNCOMPLICATED"), Back Problems, Bipolar Disorder, Depression, Diabetes ( Poorly controlled), HTN, Hypercholesterolemia, Schizophrenia, Seizures (last one 07/2015), TIA (05/2012, 02/2015) Denies: Chronic Kidney Disease Surgical History: Appendectomy (34 years ago) - [employer] Procedures INSERT OF MONITOR DEV INTO CHEST SUBCU/FASCIA, PERC APPROACH (02/23/15) INSERTION OF INFUSION DEV INTO SUP VENA CAVA, PERC APPROACH (09/09/16) Family History: States: Unknown Family Hx - Social History Hx Tobacco Use: Yes (heavy smoker) Hx Alcohol Use: No Hx Substance Use: No - Immunization History Hx Tetanus Toxoid Vaccination: Yes (2014) Hx Influenza Vaccination: Yes (2015) Hx Pneumococcal Vaccination: Yes (2015) ED Course And Treatment - Laboratory Results Result Diagrams: 01/23/17 18:23 01/23/17 18:23 O2 Sat by Pulse Oximetry: 99 Disposition Counseled Patient/Family Regarding: Studies Performed, Diagnosis, Need For Followup, Rx Given - Disposition Referrals: Mando Coates MD [Staff Provider] - Disposition: HOME/ ROUTINE Disposition Time: 21:00 Condition: STABLE Additional Instructions: FOLLOW UP WITH YOUR DOCTOR IN 1-2 DAYS USE ANTIBIOTICS UNTIL FINISHED DRINK PLENTY OF FLUIDS RETURN TO ER IF SYMPTOMS WORSEN Prescriptions: Amoxicillin 875 mg PO BID #14 tab Naproxen 375 mg PO BID PRN #20 tablet PRN Reason: pain Instructions: Otitis Media (ED) Print Language: NAMIBIAN - Clinical Impression Clinical Impression: Otitis media
[2017-01-23 21:21] VITALS: PULSE 112; RESP 20; TEMP 99.1; O2SAT 96
--- NOTE | 2017-01-24 09:20 | RAD ---
PROCEDURE: CHEST RADIOGRAPH, 1 VIEW HISTORY: CP COMPARISON: 09/09/2016 FINDINGS: LUNGS: Clear. PLEURA: No pneumothorax or pleural fluid seen. CARDIOVASCULAR: No radiographic findings to suggest acute or significant cardiovascular disease. Removal of support apparatus since the prior study: PICC line OSSEOUS STRUCTURES: No significant abnormalities. VISUALIZED UPPER ABDOMEN: Normal. OTHER FINDINGS: None. IMPRESSION: No active disease. No acute/significant interval changes.
--- NOTE | 2017-01-24 12:11 | CARD ---
APPROVED REPORT EKG Measurement Heart [id number] <Conclusion> Sinus tachycardia Otherwise normal ECG
== END 2017-01-23 21:15 | disposition home or self-care (01) ==
LOC: C.ER 16:57
DX: H66.91 Otitis media, unspecified, right ear (principal); I10 Essential (primary) hypertension; E11.9 Type 2 diabetes mellitus without complications; Z87.891 Personal history of nicotine dependence
CPT/HCPCS: 71010; 80053; 81001; 82550; 82553; 82948; 83690; 84484; 84703; 85025; 85610; 85730; 93005; 96361; 96374; 96375; 99285; J1885; J2405; J7040

== ENCOUNTER 2017-04-07 21:55 | Emergency (ER) | payer MEDICAID, MEDICARE ==
[2017-04-07 21:56] VITALS: BMI 25.8
[2017-04-07 22:19] VITALS: BP 150/81; PULSE 95; RESP 18; TEMP 98.5; O2SAT 97
[2017-04-07] MEDS ORDERED: Tmp-Smz 800 mg-160 mg DS Tab PO STA (22:33)
--- NOTE | 2017-04-07 22:37 | C.PDOC ---
History Of Present Illness Patient is a 51 y/o female who presents to the ED with a complaints of painful pimple to the left and right buttocks for the last 2 days. Patient reports to have gotten a pimple on the right buttocks 2 days ago and noticed another on the left buttocks the next day. Admits seeing PMD yesterday and was given Penicillin with no relief. Patient notes still being in pain and is unable to sit comfortably, prompting visit to ED for checkup. No other physical complaints at this time. Time Seen by Provider: 04/07/17 22:27 Chief Complaint (Nursing): Abnormal Skin Integrity History Per: Patient History/Exam Limitations: no limitations Onset/Duration Of Symptoms: Days (2 days), Gradual Current Symptoms Are (Timing): Still Present Quality Of Symptoms: Painful Recent travel outside of the [place]: No Additional History Per: Patient Past Medical History Reviewed: Historical Data, Nursing Documentation, Vital Signs Vital Signs: Last Vital Signs Temp 98.5 F 04/07/17 22:13 Pulse 95 H 04/07/17 22:13 Resp 18 04/07/17 22:13 BP 150/81 04/07/17 22:13 Pulse Ox 97 04/07/17 23:02 - Medical History PMH: Anxiety, Arthritis (right foot 1st digit), Asthma ("MILD INTERMITTENT ASTHMA,UNCOMPLICATED"), Back Problems, Bipolar Disorder, COPD, Depression, Diabetes (Poorly controlled), HTN, Hypercholesterolemia, Hyperlipidemia, Schizophrenia, Seizures (last one 07/2015), TIA (05/2012, 02/2015) Denies: Chronic Kidney Disease Surgical History: Appendectomy (34 years ago) Other Surgeries: INSERT OF MONITOR DEV INTO CHEST SUBCU/FASCIA, PERC APPROACH ( 02/23/15). INSERTION OF INFUSION DEV INTO SUP VENA CAVA, PERC APPROACH () - [facility] Procedures INSERT OF MONITOR DEV INTO CHEST SUBCU/FASCIA, PERC APPROACH (02/23/15) INSERTION OF INFUSION DEV INTO SUP VENA CAVA, PERC APPROACH (09/09/16) Family History: States: Unknown Family Hx - Social History Hx Tobacco Use: Yes (heavy smoker) Hx Alcohol Use: No Hx Substance Use: No - Immunization History Hx Tetanus Toxoid Vaccination: Yes (2014) Hx Influenza Vaccination: Yes (2015) Hx Pneumococcal Vaccination: Yes (2015) Review Of Systems Skin: Positive for: Other (painful pimples to left and right buttocks) Physical Exam - Physical Exam Appears: Well, Non-toxic, No Acute Distress Skin: Warm, Dry, Other (0.5x0.5cm and 1.0x0.5 cm tender, erythematous indurated mass on left and right inner gluteus, respectively.) Head: Atraumatic, Normacephalic Eye(s): bilateral: Normal Inspection, EOMI Oral Mucosa: Moist Neck: Normal ROM Chest: Symmetrical Cardiovascular: Rhythm Regular, No Murmur Respiratory: Normal Breath Sounds, No Rhonchi, No Wheezing Extremity: Bilateral: Atraumatic, Normal ROM Neurological/Psych: Oriented x3, Normal Speech, Other (no focal deficits) ED Course And Treatment O2 Sat by Pulse Oximetry: 97 Medical Decision Making Medical Decision Making: Impression: furuncle of gluteus, no clinical indication for I&D at this time. Ultram and Bactrim given in ED. Recommend warm compress to area and possible re- eval in few days for I&D. Patient advised to follow up with PMD. Patient discharged. Disposition Counseled Patient/Family Regarding: Need For Followup, Rx Given - Disposition Referrals: Mando Coates MD [Staff Provider] - Disposition: HOME/ ROUTINE Disposition Time: 22:35 Condition: GOOD Additional Instructions: Finish taking antibiotic given by your doctor and also take Bactrim twice a day. Apply warm cloth or compress to the area to help area mature and drain May return in 2-3 days for wound check and possible I&D Take pain medicine as needed Prescriptions: Sulfamethoxazole/Trimethoprim [Bactrim DS 800 mg-160 mg] 1 tab PO BID #14 tab traMADol [Ultram] 50 mg PO Q8 #14 tab Instructions: Abscess (GEN) Forms: [employer] (Ivorian) - POA Present On Arrival: None - Clinical Impression Clinical Impression: Gluteal abscess - Scribe Statement The provider has reviewed the documentation as recorded by the Scribe Misti Rucker All medical record entries made by the Scribe were at my direction and personally dictated by me. I have reviewed the chart and agree that the record accurately reflects my personal performance of the history, physical exam, medical decision making, and the department course for this patient. I have also personally directed, reviewed, and agree with the discharge instructions and disposition.
[2017-04-07] MEDS ORDERED: Tmp-Smz 800 mg-160 mg DS Tab ONE (22:42)
== END 2017-04-07 22:45 | disposition home or self-care (01) ==
LOC: C.ER 21:55
DX: L02.31 Cutaneous abscess of buttock (principal)

== ENCOUNTER 2017-04-09 02:58 | Emergency (ER) | payer MEDICARE, OTHER ==
[2017-04-09 03:03] VITALS: BMI 25.8
[2017-04-09] MEDS ORDERED: Oxycodone/Acetaminophen 5/325 mg Tab PO STA (03:49)
[2017-04-09] MEDS ORDERED: Oxycodone/Acetaminophen 5/325 mg Tab ONE (03:59)
[2017-04-09] MEDS ORDERED: Lidocaine 2% Inj (20ml) INFIL ONE (04:07)
[2017-04-09] MEDS ORDERED: Lidocaine 2% Inj (20ml) ONE (04:08)
[2017-04-09 04:36] VITALS: BP 125/84; PULSE 92; RESP 19; TEMP 98.7; O2SAT 96
--- NOTE | 2017-04-09 04:47 | C.PDOC ---
History Of Present Illness 51 year old female presents to the ER with a complaint of painful drainage abscesses to the buttock area. Patient was seen by PMD who started her on augmentin and was seen in the ER 2 days ago but told it was too early to attempt an I&D and started on bactrim. Patient returns now with moderate pain and draining of the abscesses. Denies fever or chills. Time Seen by Provider: 04/09/17 03:16 Chief Complaint (Nursing): Abnormal Skin Integrity History Per: Patient History/Exam Limitations: no limitations Onset/Duration Of Symptoms: Days Location Of Injury: Right: Buttock, Left: Buttock Quality Of Symptoms: Painful, Draining Recent travel outside of the [place]: No Past Medical History Reviewed: Historical Data, Nursing Documentation, Vital Signs Vital Signs: Last Vital Signs Temp 98.7 F 04/09/17 04:36 Pulse 92 H 04/09/17 04:36 Resp 19 04/09/17 04:36 BP 125/84 04/09/17 04:36 Pulse Ox 96 04/09/17 06:08 - Medical History PMH: Anxiety, Arthritis (right foot 1st digit), Asthma ("MILD INTERMITTENT ASTHMA,UNCOMPLICATED"), Back Problems, Bipolar Disorder, COPD, Depression, Diabetes (Poorly controlled), HTN, Hypercholesterolemia, Hyperlipidemia, Schizophrenia, Seizures (last one 07/2015), TIA (05/2012, 02/2015) Surgical History: Appendectomy (34 years ago) - [employer] Procedures INSERT OF MONITOR DEV INTO CHEST SUBCU/FASCIA, PERC APPROACH (02/23/15) INSERTION OF INFUSION DEV INTO SUP VENA CAVA, PERC APPROACH (09/09/16) Family History: States: Unknown Family Hx - Social History Hx Tobacco Use: Yes (heavy smoker) Hx Alcohol Use: No Hx Substance Use: No - Immunization History Hx Tetanus Toxoid Vaccination: Yes (2014) Hx Influenza Vaccination: Yes (2015) Hx Pneumococcal Vaccination: Yes (2015) Review Of Systems Constitutional: Negative for: Fever, Chills Skin: Positive for: Other (Abscesses) Physical Exam - Physical Exam Appears: Non-toxic, No Acute Distress Skin: Warm, Dry Head: Atraumatic, Normacephalic Eye(s): bilateral: Normal Inspection Back: Other (2 small fluctuant partially draining abscess with localized erythema to right buttock. 1 indurated, nondraining, nonfluctuant abscess to left buttock.) Neurological/Psych: Oriented x3, Normal Speech ED Course And Treatment O2 Sat by Pulse Oximetry: 96 (Room air) Pulse Ox Interpretation: Normal Progress Note: Patient tolerated I&D with no difficulty, wound was dressed. Patient instructed on proper wound care and advised to follow up for wound check or return to ER if any signs of infection arise. - Incision & Drainage Of Abscess Anesthesia: Lidocaine 1% Prep Used: Sterile Water, Betadine (topical) Procedure: Incised W/Scalpel Blade#: (15), Drained Pus (minimal to right buttock , no purulent material LT), Irrigated Cavity W/Saline, Probed To Break Up Loculations Disposition Counseled Patient/Family Regarding: Diagnosis, Need For Followup - Disposition Referrals: PMD, PMD [Other] Disposition: HOME/ ROUTINE Disposition Time: 04:59 Condition: STABLE Additional Instructions: Continue current abx Continue pain meds Wound check in 2 days with PCP Warm soaks or compress Return to ER if worse Instructions: Abscess (ED) Forms: [employer] (Belarusian) - Clinical Impression Clinical Impression: Cutaneous abscess of buttock - PA / P[employer] ENGINEER / Resident Statement MD/DO has reviewed & agrees with the documentation as recorded. - Scribe Statement The provider has reviewed the documentation as recorded by the Scribchanel Molina All medical record entries made by the Rosanaibchanel were at my direction and personally dictated by me. I have reviewed the chart and agree that the record accurately reflects my personal performance of the history, physical exam, medical decision making, and the department course for this patient. I have also personally directed, reviewed, and agree with the discharge instructions and disposition.
== END 2017-04-09 05:11 | disposition home or self-care (01) ==
LOC: C.ER 02:58
DX: L02.31 Cutaneous abscess of buttock (principal); E11.9 Type 2 diabetes mellitus without complications; E78.00 Pure hypercholesterolemia, unspecified; I10 Essential (primary) hypertension; F17.210 Nicotine dependence, cigarettes, uncomplicated

== ENCOUNTER 2017-06-27 19:36 | Emergency (ER) | payer MEDICARE, OTHER ==
[2017-06-27 19:36] VITALS: BMI 25.8
[2017-06-27 20:10] VITALS: O2SAT 100
[2017-06-27] MEDS ORDERED: Lidocaine Hydrochloride 5 ML INJ ONE (22:35)
--- NOTE | 2017-06-27 22:59 | C.PDOC ---
History Of Present Illness 51 y/o female presents complaining of discharge from a perineal abscess for the last 3 days. Patient reports wound is draining foul-smelling pus. Has history of multiple small abscesses in the perineal and buttocks area. No fever or chills. She states she does shave the area. Patients PMHx is significant for chronic pain and anxiety. Time Seen by Provider: 06/27/17 21:45 Chief Complaint (Nursing): Abnormal Skin Integrity History Per: Patient History/Exam Limitations: no limitations Onset/Duration Of Symptoms: Days Ago (3) Current Symptoms Are (Timing): Still Present Past Medical History Reviewed: Historical Data, Nursing Documentation, Vital Signs Vital Signs: Last Vital Signs Temp 98.0 F 06/27/17 20:04 Pulse 102 H 06/27/17 20:04 Resp 18 06/27/17 20:04 BP 127/81 06/27/17 20:04 Pulse Ox 100 06/27/17 23:15 - Medical History PMH: Anxiety, Arthritis (right foot 1st digit), Asthma ("MILD INTERMITTENT ASTHMA,UNCOMPLICATED"), Back Problems, Bipolar Disorder, COPD, Depression, Diabetes (Poorly controlled), HTN, Hypercholesterolemia, Hyperlipidemia, Schizophrenia, Seizures (last one 07/2015), TIA (05/2012, 02/2015), Chronic Pain Denies: Chronic Kidney Disease Surgical History: Appendectomy (34 years ago) - [facility] Procedures INSERT OF MONITOR DEV INTO CHEST SUBCU/FASCIA, PERC APPROACH (02/23/15) INSERTION OF INFUSION DEV INTO SUP VENA CAVA, PERC APPROACH (09/09/16) Family History: States: Unknown Family Hx - Social History Hx Tobacco Use: Yes (heavy smoker) Hx Alcohol Use: No Hx Substance Use: No - Immunization History Hx Tetanus Toxoid Vaccination: Yes (2014) Hx Influenza Vaccination: Yes Hx Pneumococcal Vaccination: Yes (2015) Review Of Systems Except As Marked, All Systems Reviewed And Found Negative. Constitutional: Negative for: Fever, Chills Skin: Positive for: Other (abscess to perineal area, + drainage) Physical Exam - Physical Exam Appears: Non-toxic, No Acute Distress, Other (Pt denies any pain at present) Skin: Normal Color, Warm, Dry Head: Atraumatic, Normacephalic Eye(s): bilateral: PERRL, EOMI, Other (Pupils pinpoint) Oral Mucosa: Moist Neck: Normal ROM Chest: Symmetrical Cardiovascular: Rhythm Regular, No Murmur Respiratory: Normal Breath Sounds, No Rales, No Rhonchi, No Wheezing Gastrointestinal/Abdominal: Soft, No Tenderness, No Distention Pelvic: Other (small 1x1 cm abscess near posterior vagina, leaking brown putrid pus, no surrounding cellulitis) Extremity: Bilateral: Atraumatic, Normal Color And Temperature, Normal ROM Neurological/Psych: Oriented x3, Normal Speech Additional Physical Exam Comments: JONNATHAN Atkins chaperoned exam ED Course And Treatment O2 Sat by Pulse Oximetry: 100 (RA) Pulse Ox Interpretation: Normal Medical Decision Making Medical Decision Making: [employer] reviewed: Patient has 32 prescriptions from 9 prescribers in the past year. Plan: * I&D of abscess (see procedure note) Patient tolerated procedure well. Chaperoned by JONNATHAN Atkins at bedside Pt given instructions for wound care. Advised to follow up with PMD regarding chronic pain chronic pain issues of ? etiology, though pt does NOT seem to have nor have evidence of "three CVA's" Consider alternative pain control methods small chronic perineal wound now capsule removed no abx indicated Disposition Doctor Will See Patient In The: Office Counseled Patient/Family Regarding: Studies Performed, Diagnosis - Disposition Referrals: Mando Coates MD [Staff Provider] - Disposition: HOME/ ROUTINE Disposition Time: 23:10 Condition: GOOD Additional Instructions: small perineal abscess drained and small packing in place. Remove packing with OBGYN/PMD in 2 days No antibiotic regimen required at this time. Follow- up as necessary Instructions: Abscess Incision and Drainage Forms: [employer] (Wallisian) - Clinical Impression Clinical Impression: Groin abscess - Scribe Statement The provider has reviewed the documentation as recorded by the Scribe (Latia Crane) Provider Attestation: All medical record entries made by the Scribe were at my direction and personally dictated by me. I have reviewed the chart and agree that the record accurately reflects my personal performance of the history, physical exam, medical decision making, and the department course for this patient. I have also personally directed, reviewed, and agree with the discharge instructions and disposition. - Incision & Drainage Of Abscess Anesthesia: Lidocaine 1% Procedure: Drained Pus (and removed small amount of chronically infected capsule material, indicative of chronic infection), Packed W/Gauze (5 cm of packing placed to wound)
[2017-06-27 23:36] VITALS: BP 122/70; PULSE 94; RESP 20; TEMP 98.9
== END 2017-06-27 23:36 | disposition home or self-care (01) ==
LOC: C.ER 19:36
DX: L02.214 Cutaneous abscess of groin (principal)

== ENCOUNTER 2017-06-29 11:29 | Emergency (ER) | payer MEDICARE, OTHER ==
[2017-06-29 11:29] VITALS: BMI 25.8
[2017-06-29 11:39] VITALS: BP 125/84; PULSE 107; RESP 19; TEMP 97.9; O2SAT 100
--- NOTE | 2017-06-29 12:46 | C.PDOC ---
History Of Present Illness 51 yo female come in for scheduled wound check over Right vaginal area after abscess was I&D here in ED 2 days ago. Pt reports, moderate improvement in sx, pain, denies significant discharges, denies fever, chills, UTI sx. Ambulate to ED for evaluation, not in any apparent distress. Time Seen by Provider: 06/29/17 11:56 Chief Complaint (Nursing): Wound Check History Per: Patient Past Medical History Reviewed: Historical Data, Nursing Documentation, Vital Signs Vital Signs: Last Vital Signs Temp 97.9 F 06/29/17 11:36 Pulse 107 H 06/29/17 11:36 Resp 19 06/29/17 11:36 BP 125/84 06/29/17 11:36 Pulse Ox 100 06/29/17 12:46 - Medical History PMH: Anxiety, Arthritis (right foot 1st digit), Asthma ("MILD INTERMITTENT ASTHMA,UNCOMPLICATED"), Back Problems, Bipolar Disorder, COPD, Depression, Diabetes (Poorly controlled), HTN, Hypercholesterolemia, Hyperlipidemia, Schizophrenia, Seizures (last one 07/2015), TIA (05/2012, 02/2015), Chronic Pain Denies: Chronic Kidney Disease Surgical History: Appendectomy (34 years ago) - [facility] Procedures INSERT OF MONITOR DEV INTO CHEST SUBCU/FASCIA, PERC APPROACH (02/23/15) INSERTION OF INFUSION DEV INTO SUP VENA CAVA, PERC APPROACH (09/09/16) Family History: States: Unknown Family Hx - Social History Hx Tobacco Use: Yes (heavy smoker) Hx Alcohol Use: No Hx Substance Use: No - Immunization History Hx Tetanus Toxoid Vaccination: Yes (2014) Hx Influenza Vaccination: Yes (2017) Hx Pneumococcal Vaccination: Yes (2015) Review Of Systems Except As Marked, All Systems Reviewed And Found Negative. Constitutional: Negative for: Fever, Chills Genitourinary: Negative for: Dysuria, Frequency, Incontinence Skin: Positive for: Lesions Neurological: Negative for: Weakness, Numbness Physical Exam - Physical Exam Appears: Well, Non-toxic, No Acute Distress Skin: Normal Color, Warm, No Rash, No Ecchymosis Gastrointestinal/Abdominal: Normal Exam, Soft, No Tenderness, No Distention, No Guarding Pelvic: No Vaginal Discharge, Other (small incision over Right vaginal area with inserted packing. No edema, no discharges, no erythema.) Extremity: Normal ROM, No Deformity, No Swelling Neurological/Psych: Oriented x3, Normal Speech ED Course And Treatment O2 Sat by Pulse Oximetry: 100 Progress Note: On re-eval, pt is afebrile, hemodynamicaly stable. Non-toxic. Abd: benign. : wound cleaned over Right vaginal area, packing removed, wound irrigated with NS. Sterile dressing reapplied. No flactulance, no cellulitis. Pt advised on wound care, ref. to f/u with [facility] in 2-3 days for re-eval. Disposition Counseled Patient/Family Regarding: Diagnosis, Need For Followup - Disposition [facility] Disposition: HOME/ ROUTINE Disposition Time: 12:20 Condition: STABLE Additional Instructions: warm salty water sitz bath 2 times daily for 5-10 minutes Continue antibiotic as initiated Follow up with [facility] in 2-3 days for re-evaluation. return to ED if any worsening or new changes. Instructions: Wound Incision and Drainage Forms: [facility] (Mongolian) - Clinical Impression Clinical Impression: Wound check, abscess
== END 2017-06-29 12:55 | disposition home or self-care (01) ==
LOC: C.ER 11:29
DX: Z51.89 Encounter for other specified aftercare (principal); E11.9 Type 2 diabetes mellitus without complications; E78.00 Pure hypercholesterolemia, unspecified; F20.9 Schizophrenia, unspecified; I10 Essential (primary) hypertension; F17.200 Nicotine dependence, unspecified, uncomplicated

== ENCOUNTER 2017-10-24 07:04 | Day surgery (SDC) | payer MEDICARE, OTHER ==
[~2017-10-24 07:04] MED LIST: EPINEPHrine 1:1000 Nasal Sol(30mL) ONE; Lidocaine/Epinephrine 1% 1:100000 10 ML IJ ONE; ceFAZolin IV 1 gm in Dextrose 1 GM/50 ML BAG IVPB ONE
[2017-10-24] MEDS ORDERED: (Novolin R) Insulin Human Regular 100 units/ml vial IV ONE (07:56)
[2017-10-24] MEDS ORDERED: Sodium Chloride 0.9% 500 ML IV ONE (07:57)
[2017-10-24] MEDS ORDERED: Sodium Chloride 0.9% 1,000 ML IV ONE (08:00)
[2017-10-24] MEDS ORDERED: (Novolin R) Insulin Human Regular 100 units/ml vial ONE (08:04)
[2017-10-24] MEDS ORDERED: Acetaminophen-Codeine 300/30 mg Tab PO PRN (08:16)
[2017-10-24] MEDS ORDERED: Dextrose 5%/0.45% NS 1,000 ML IV SCH (08:30)
[2017-10-24] MEDS ORDERED: Lactated Ringer's 1,000 ML IV ONE (09:25)
[2017-10-24] MEDS ORDERED: Propofol 10 mg/ml Inj (20 ML) ONE (09:33)
[2017-10-24] MEDS ORDERED: Midazolam 2 MG/2 ML VIAL ONE (09:33)
[2017-10-24] MEDS ORDERED: Rocuronium 10 mg/ml (5 ml) ONE (09:36)
[2017-10-24] MEDS ORDERED: Phenylephrine 10 mg/ml Inj ONE (09:56)
[2017-10-24] MEDS ORDERED: Neostigmine Methylsulfate 3mg/3ml Syringe IV ONE ×2 (10:16→10:27)
[2017-10-24] MEDS ORDERED: HYDROmorphone 0.5 mg/0.5 ml ISec IVP PRN (10:35)
[2017-10-24 12:54] VITALS: RESP 18
[2017-10-24 14:42] VITALS: BP 120/71; PULSE 94; TEMP 97.8; O2SAT 96
--- NOTE | 2017-10-25 03:08 | OP ---
Copied To: Dylan Galvez MD Attending MD: Dylan Galvez MD PROCEDURE DATE: 10/24/2017 PREOPERATIVE DIAGNOSIS: Chronic sinusitis. POSTOPERATIVE DIAGNOSIS: Chronic sinusitis. PROCEDURE: Endoscopic left maxillary antrostomy, endoscopic left sphenoidotomy, endoscopic left ethmoidectomy. SURGEON: Dylan Galvez MD. SIGNIFICANT FINDINGS: Maxillary antrum stenosed, sphenoid antrum stenosed, and some ethmoid cells were closed. DESCRIPTION OF PROCEDURE: The patient was brought into the room, placed in supine position. Anesthesia was initiated through an ET tube. Navigation was set up and used throughout the case in order to ensure that the skull base and orbit were not entered. Adrenaline-soaked pledgets were inserted into the nasal cavity on the left, it remained there for at least 5 minutes and removed. The patient was draped in the usual manner. A 0-degree scope was inserted into the nasal cavity. The middle turbinate was injected with lidocaine with epinephrine and medialized. Ethmoidectomy has already been done. However, it was noted that few cells were closed. Therefore, forceps and debrider were used to open the few cells that were closed. The maxillary antrum was noted to be stenosed and opened using forceps. Trace suction was used to locate the sphenoid antrum, and the rongeurs were used to open the antrum. Bleeding was controlled using adrenaline soaked pledgets. Stent was placed. The patient was taken off anesthesia and taken to the recovery room in stable manner. Dylan Galvez MD
== END 2017-10-24 13:45 | disposition home or self-care (01) ==
LOC: C.SDS 07:04
PROVIDERS: ATTEND Otolaryngology
DX: J32.0 Chronic maxillary sinusitis (principal); J32.9 Chronic sinusitis, unspecified; J32.2 Chronic ethmoidal sinusitis; J32.3 Chronic sphenoidal sinusitis
CPT/HCPCS: 31287; 82948; 88304; J0690; J1170; J1885; J2250; J2370; J2405; J2704; J2710; J3010; J7030; J7120

== ENCOUNTER 2017-12-13 13:41 | Emergency (ER) | payer MEDICARE, OTHER ==
[2017-12-13 13:41] VITALS: BMI 25.8
[2017-12-13 13:57] VITALS: RESP 20; O2SAT 99
[2017-12-13] MEDS ORDERED: Alum-Mag Hydrox-Simethicone Susp (30 mL) PO STA (14:14)
[2017-12-13 14:35] LABS: BASO # 0.2 K/uL (0.0-0.2); BASO % 1.5 % (0.0-2.0); EOS # 0.3 K/uL (0.0-0.7); EOS % 3.1 % (0.0-4.0); HEMOGLOBIN 14.7 g/dL (11.0-16.0); LYMPH % 28.1 % (20.0-40.0); MEAN CELL VOLUME 82.9 fL (81.0-99.0); MEAN CORPUSCULAR HEMOGLOBIN 28.2 pg (27.0-31.0); MEAN PLATELET VOLUME 10.5 fL (7.2-11.7); MONO # 0.6 K/uL (0.0-0.8); MONO % 5.8 % (0.0-10.0); NEUT # 6.5 K/uL (1.8-7.0); NEUT % 61.5 % (50.0-75.0); NRBC % 0.1 % (0.0-2.0); RBC 5.2 Mil/uL (3.80-5.20); RED CELL DISTRIBUTION WIDTH 13.6 % (11.5-14.5); WHITE BLOOD COUNT 10.6 K/uL (4.8-10.8)
--- NOTE | 2017-12-13 14:37 | RAD ---
Date of service: 12/13/2017 HISTORY: SOB COMPARISON: 01/23/2017 TECHNIQUE: Chest PA and lateral FINDINGS: LUNGS: No active pulmonary disease. PLEURA: No significant pleural effusion identified. No pneumothorax apparent. CARDIOVASCULAR: Normal. OSSEOUS STRUCTURES: No significant abnormalities. VISUALIZED UPPER ABDOMEN: Normal. OTHER FINDINGS: None. IMPRESSION: No active disease.
--- NOTE | 2017-12-13 14:38 | C.PDOC ---
Addendum entered and electronically signed by Liliana Allen APN 12/13/17 18:02: Addendum Addendum: 12/13/17 18:02 Patient requesting to sign out AMA Addendum entered and electronically signed by Liliana Allen APN 12/13/17 18:01: Against Medical Advice - AMA Patient Left Against Medical Advice: The patient declines admission to the hospital and wishes to leave the Emergency Department. This action is against my medical advice. This decision was made with informed refusal. The patient was told that admission to the hospital is necessary. Explanation of the reasons why were discussed. The risks of leaving were explained to the patient and include, but are not limited to, worsening of known or currently unknown conditions, permanent disability and from undiagnosed or untreated conditions. The patient has the capacity to make this informed decision and understands my explanation of the current medical problem and risks of leaving. The patient voluntarily accepts these risks and signed an AMA form documenting our conversation. The patient was given the opportunity to ask questions and reconsider. The pa jennifer was encouraged to return to the Emergency Department at any time for further care. Original Note: History Of Present Illness 52-year-old female, presents to the emergency department with complaints of chest pain tha5t started an hour prior to arrival. Patient has a hx of diabetes and is complaining of mid-sternal pain, which feels like pressure and is intermittent in nature. Pt denies nausea/vomiting, fever or chills. No other complaints at this time. Time Seen by Provider: 12/13/17 14:07 Chief Complaint (Nursing): Chest Pain History Per: Patient History/Exam Limitations: no limitations Past Medical History Reviewed: Historical Data, Nursing Documentation, Vital Signs Vital Signs: Last Vital Signs Temp 98.4 F 12/13/17 13:56 Pulse 101 H 12/13/17 13:56 Resp 20 12/13/17 13:56 BP 146/95 H 12/13/17 13:56 Pulse Ox 99 12/13/17 13:56 - Medical History PMH: Anemia, Anxiety, Arthritis (right foot 1st digit), Asthma ("MILD INTERMITTENT ASTHMA,UNCOMPLICATED"), Back Problems, Bipolar Disorder, COPD, Depression, Diabetes (Poorly controlled), HTN, Hypercholesterolemia, Hyperlipi demia, Schizophrenia, Seizures (last one 07/2015), TIA (05/2012, 02/2015), Chronic Pain Denies: Chronic Kidney Disease Surgical History: Appendectomy (34 years ago) - [facility] Procedures INSERT OF MONITOR DEV INTO CHEST SUBCU/FASCIA, PERC APPROACH (02/23/15) INSERTION OF INFUSION DEV INTO SUP VENA CAVA, PERC APPROACH (09/09/16) Family History: States: No Known Family Hx - Social History Hx Tobacco Use: Yes (heavy smoker) Hx Alcohol Use: No Hx Substance Use: No - Immunization History Hx Tetanus Toxoid Vaccination: Yes (2014) Hx Influenza Vaccination: Yes (2017) Hx Pneumococcal Vaccination: Yes (2015) Review Of Systems Constitutional: Negative for: Fever Cardiovascular: Positive for: Chest Pain. Negative for: Palpitations Respiratory: Negative for: Shortness of Breath Physical Exam - Physical Exam Appears: Non-toxic, No Acute Distress Skin: Normal Color, Warm, Dry, No Rash Head: Atraumatic, Normacephalic Eye(s): bilateral: Normal Inspection, PERRL, EOMI Nose: Normal Oral Mucosa: Moist Lips: Normal Appearing Throat: Normal Neck: Normal Chest: Symmetrical, Tenderness Cardiovascular: Rhythm Regular, No Murmur Respiratory: Normal Breath Sounds Gastrointestinal/Abdominal: Soft, No Tenderness Back: Normal Inspection Extremity: Normal ROM, No Deformity Neurological/Psych: Oriented x3, Normal Speech ED Course And Treatment - Laboratory Results Result Diagrams: 12/13/17 14:28 12/13/17 14:28 Lab Interpretation: No Acute Changes ECG: Interpreted By Nh ECG Rhythm: Sinus Rhythm ECG Interpretation: Normal Rate From EC O2 Sat by Pulse Oximetry: 99 Pulse Ox Interpretation: Normal (RA) - Radiology CXR: Interpreted by Nh CXR Interpretation: Yes: No Acute Disease Progress Note: Treated with toradol, pepcid and maalox. On re-evaluation lungs clear Reassessment Condition: Improved - Physician Consult Information Physician Contacted: Mando Coates Outcome Of Conversation: admit Disposition Discussed With : Mando Coates Doctor Will See Patient In The: Hospital Counseled Patient/Family Regarding: Studies Performed, Diagnosis, Need For Followup - Disposition Disposition: HOSPITALIZED Disposition Time: 17:00 Condition: STABLE - POA Present On Arrival: None - Clinical Impression Clinical Impression: Chest pain - Scribe Statement The provider has reviewed the documentation as recorded by the Scribe (Rai Chau) All medical record entries made by the Scribe were at my direction and personally dictated by me. I have reviewed the chart and agree that the record a ccurately reflects my personal performance of the history, physical exam, medical decision making, and the department course for this patient. I have also personally directed, reviewed, and agree with the discharge instructions and disposition. Decision To Admit - Pt Status Changed To: Hospital Disposition Of: Observation - . Bed Request Type: Telemetry Admitting Physician: Mando Coates Patient Diagnosis: Chest pain
[2017-12-13] MEDS ORDERED: Alum-Mag Hydrox-Simethicone Susp (30 mL) ONE (14:47)
[2017-12-13 14:56] LABS: ALB/GLOB RATIO 1.3 (1.0-2.1); ALBUMIN 3.8 g/dL (3.5-5.0); ALT/SGPT 25 U/L (9-52); AST/SGOT 13 U/L (14-36); BLOOD UREA NITROGEN 18 mg/dL (7-17); CALCIUM 9.7 mg/dl (8.6-10.4); GFR NON-AFRICAN AMERICAN > 60; LIPASE 34 U/L (23-300)
[2017-12-13 15:06] LABS: CK-MB 0.26 ng/mL (0.0-3.38)
[2017-12-13 16:16] VITALS: BP 124/84; PULSE 90; TEMP 97.3
--- NOTE | 2017-12-14 23:01 | CARD ---
APPROVED REPORT Date of service: 12/13/2017 EKG Measurement Heart [id number] OR [id number] <Conclusion> Normal sinus rhythm Possible Left atrial enlargement Borderline ECG
== END 2017-12-13 18:08 | disposition left against medical advice (07) ==
LOC: C.ER 13:41 → C.9E 16:37 → UNDOADMOB 16:37 → C.6T 17:57 → C.9E 17:57
DX: R07.9 Chest pain, unspecified (principal)
CPT/HCPCS: 71046; 80053; 82553; 82948; 83690; 84484; 85025; 93005; 96374; 96375; 99285; J1885; J2405

== ENCOUNTER 2017-12-14 13:58 | Observation (INO) | payer MEDICARE, OTHER ==
[2017-12-14 13:58] VITALS: BMI 25.8
--- NOTE | 2017-12-14 14:42 | C.PDOC ---
History Of Present Illness 52 y/o female is sent to ED by Dr. Coates for evaluation of chest tightness and anxiety. Pt was seen here yesterday, was admitted, and then left against medical advice. Pt is here today with similar complaints, in addition to tingling sensation to left fingers. Notes taking Xanax 2mg this morning, but has not taken her afternoon dose yet. No shortness of breath or other complaints. Time Seen by Provider: 12/14/17 14:20 Chief Complaint (Nursing): Chest Pain History Per: Patient History/Exam Limitations: no limitations Past Medical History Reviewed: Historical Data, Nursing Documentation, Vital Signs Vital Signs: Last Vital Signs Temp 98.8 F 12/14/17 14:10 Pulse 100 H 12/14/17 14:10 Resp 22 12/14/17 14:10 BP 164/93 H 12/14/17 14:10 Pulse Ox 95 12/14/17 14:10 - Medical History PMH: Anemia, Anxiety, Arthritis (right foot 1st digit), Asthma, Back Problems, Bipolar Disorder, COPD, Depression, Diabetes (Poorly controlled), HTN, Hypercholesterolemia, Hyperlipidemia, Schizophrenia, Seizures (last one 07/2015), TIA (05/2012, 02/2015), Chronic Pain Denies: Chronic Kidney Disease Surgical History: Appendectomy (34 years ago) - [facility] Procedures INSERT OF MONITOR DEV INTO CHEST SUBCU/FASCIA, PERC APPROACH (02/23/15) INSERTION OF INFUSION DEV INTO SUP VENA CAVA, PERC APPROACH (09/09/16) Family History: States: Unknown Family Hx - Social History Hx Tobacco Use: Yes (heavy smoker) Hx Alcohol Use: No Hx Substance Use: No - Immunization History Hx Tetanus Toxoid Vaccination: Yes (2014) Hx Influenza Vaccination: No Hx Pneumococcal Vaccination: No Review Of Systems Except As Marked, All Systems Reviewed And Found Negative. Cardiovascular: Positive for: Chest Pain. Negative for: Palpitations Respiratory: Negative for: Shortness of Breath Psych: Positive for: Anxiety Physical Exam - Physical Exam Appears: Non-toxic, No Acute Distress, Other (anxious) Skin: Normal Color, Warm, Dry Head: Atraumatic, Normacephalic Eye(s): bilateral: Normal Inspection Oral Mucosa: Moist Neck: Normal ROM, Supple Chest: Symmetrical, No Tenderness Cardiovascular: Rhythm Regular Respiratory: Normal Breath Sounds, No Rales, No Rhonchi, No Wheezing Gastrointestinal/Abdominal: Soft, No Tenderness Extremity: Normal ROM, No Pedal Edema Neurological/Psych: Oriented x3, Normal Speech ED Course And Treatment - Laboratory Results Result Diagrams: 12/14/17 14:55 12/14/17 14:55 Lab Interpretation: Normal (trop/bnp/UA/preg neg.) Urine POC: Negative ECG: Interpreted By Me ECG Rhythm: Sinus Rhythm ECG Interpretation: Normal Rate From EC O2 Sat by Pulse Oximetry: 95 Pulse Ox Interpretation: Normal - Radiology CXR: Interpreted by Me CXR Interpretation: Yes: No Acute Disease Reevaluation Time: 16:02 Reassessment Condition: Improved - Physician Consult Information Outcome Of Conversation: 1600: d/w evelyne Aponte to Tele obs Medical Decision Making Medical Decision Making: anxiety h/o same improved with xanax and ryley patch Cardio: w/u neg low susp ACS Disposition Doctor Will See Patient In The: Hospital Counseled Patient/Family Regarding: Studies Performed, Diagnosis - Disposition Disposition: HOSPITALIZED Disposition Time: 16:03 Condition: GOOD Forms: [facility] (Nigerien) - Clinical Impression Clinical Impression: Chest discomfort, Anxiety - Scribe Statement The provider has reviewed the documentation as recorded by the Scribe KP All medical record entries made by the Scribe were at my direction and personally dictated by me. I have reviewed the chart and agree that the record accurately reflects my personal performance of the history, physical exam, medical decision making, and the department course for this patient. I have also personally directed, reviewed, and agree with the discharge instructions and disposition.
[2017-12-14 15:00] LABS: BASO # 0.1 K/uL (0.0-0.2); EOS # 0.3 K/uL (0.0-0.7); EOS % 3.5 % (0.0-4.0); HEMOGLOBIN 14.5 g/dL (11.0-16.0); LYMPH # 3.1 K/uL (1.0-4.3); LYMPH % 35.8 % (20.0-40.0); MEAN CELL VOLUME 82.5 fL (81.0-99.0); MEAN CORPUSCULAR HEMOGLOBIN 27.8 pg (27.0-31.0); MEAN CORPUSCULAR HGB CONC 33.7 g/dL (33.0-37.0); MEAN PLATELET VOLUME 10.5 fL (7.2-11.7); MONO # 0.4 K/uL (0.0-0.8); MONO % 4.5 % (0.0-10.0); NEUT # 4.8 K/uL (1.8-7.0); NEUT % 55.2 % (50.0-75.0); NRBC % 0.1 % (0.0-2.0); RBC 5.2 Mil/uL (3.80-5.20); WHITE BLOOD COUNT 8.6 K/uL (4.8-10.8)
[2017-12-14 15:08] LABS: INR 1.1
[2017-12-14 15:13] LABS: ALB/GLOB RATIO 1.4 (1.0-2.1); ALT/SGPT 28 U/L (9-52); AST/SGOT 13 U/L (14-36); BLOOD UREA NITROGEN 12 mg/dL (7-17); CALCIUM 9.9 mg/dl (8.6-10.4); GFR NON-AFRICAN AMERICAN > 60
[2017-12-14 15:23] LABS: B-TYPE NATRIURETIC PEPTIDE 79.2 pg/mL (0-900)
--- NOTE | 2017-12-14 15:29 | RAD ---
Date of service: 12/14/2017 PROCEDURE: CHEST RADIOGRAPH, 1 VIEW HISTORY: SOB COMPARISON: 12/13/2017 FINDINGS: LUNGS: Each lung is well inflated. The interstitial lung markings appear slightly increased in conspicuity on the current study-top normal variant versus interstitial lung disease is a consideration. Findings are nonspecific. No consolidation PLEURA: No pneumothorax or pleural fluid seen. CARDIOVASCULAR: Normal heart size. No basilia pulmonary venous congestion. OSSEOUS STRUCTURES: A slightly hyperdense focus projects over the anterior inferior right 1st rib this is not believe significantly changed with the 2017 study. His faint similar level hyperdensity along the inferior anterior left 1st rib as well. VISUALIZED UPPER ABDOMEN: Normal. OTHER FINDINGS: None. IMPRESSION: No consolidation. Possible increased interstitial lung markings compared to the prior study. Nonspecific. Clinical follow-up recommended.
[2017-12-14 15:33] LABS: HCG,QUALITATIVE URINE NEGATIVE (NEGATIVE)
[2017-12-14 15:34] LABS: SQUAMOUS EPITHIAL 3 /hpf (0-5); URINE BACTERIA RARE (<OCC); URINE BILIRUBIN NEGATIVE (NEGATIVE); URINE BLOOD NEGATIVE (NEGATIVE); URINE CLARITY Clear (Clear); URINE COLOR Yellow (YELLOW); URINE GLUCOSE (UA) 2+ mg/dL (Normal); URINE LEUKOCYTE ESTERASE NEG Leu/uL (Negative); URINE PROTEIN NEGATIVE (NEGATIVE); URINE UROBILINOGEN NORMAL mg/dL (0.2-1.0)
[2017-12-14 16:03] LABS: BARBITURATES, UR NEGATIVE (NEGATIVE); BENZODIAZEPINES, UR NEGATIVE (NEGATIVE); OPIATES, UR NEGATIVE (NEGATIVE); PHENCYCLIDINE, UR NEGATIVE (NEGATIVE)
[2017-12-14] MEDS ORDERED: Aspirin 325 mg EC Tablets PO STA (16:03)
[2017-12-14] MEDS ORDERED: Aspirin 325 mg EC Tablets PO ONE (16:15)
[2017-12-14 23:08] LABS: CK-MB < 0.22 ng/mL (0.0-3.38)
[2017-12-15] MEDS ORDERED: Fluticasone-Vilanterol 100/25mcg Diskus INH SCH (08:00)
[2017-12-15] MEDS ORDERED: Caffeine Citrated **INJ** 20 MG/ML IV ONE (08:07)
[2017-12-15 09:21] LABS: CK-MB < 0.22 ng/mL (0.0-3.38)
--- NOTE | 2017-12-15 10:15 | CP.PCM.PN ---
Subjective - Date & Time of Evaluation Date of Evaluation: 12/15/17 Time of Evaluation: 10:15 - Subjective Subjective: PGY2 Medicine Note for Dr. Coates Patient is a 52 year old female with a past medical history of Anxiety, Arthritis (right foot 1st digit), Asthma, Back Problems, Bipolar Disorder, Depression, Diabetes, HTN, Hypercholesterolemia, Schizophrenia, Seizures (last one 07/2015), TIA (05/2012, 02/2015) presenting to the hospital for chest tig htness. Patient was seen in the emergency room on 12/13 with the same complaints but left AMA after her symptoms started to improve. She returned to the emergency after Dr. Coates instructed her to come back to the hospital when the symptoms returned. She felt pressure substernally and felt like she was being choked. She has similar symptoms previously but never to this extent. She also had tingling in her left hand but that has resolved. She is still feeling chest pressure today but no longer feels like she is choking. She has no other complaints at this time. She has no other complaints at this time. She is schedule for a stress test today. PMD: Dr. Coates PMH: Anxiety, Arthritis (right foot 1st digit), Asthma, Back Problems, Bipolar Disorder, Depression, Diabetes, HTN, Hypercholesterolemia, Schizophrenia, Seizures (last one 07/2015), TIA (05/2012, 02/2015) Objective - Vital Signs/Intake and Output Vital Signs (last 24 hours): Temp Pulse Resp BP Pulse Ox 98.1 F 83 18 122/80 98 12/15/17 07:00 12/15/17 07:00 12/15/17 07:00 12/15/17 07:00 12/15/17 08:59 - Medications Medications: Current Medications Alprazolam (Xanax) 2 mg PO TID [facility] Aspirin (Aspirin) 325 mg PO DAILY [facility] Fluticasone/Vilanterol (Breo Ellipta 100-25 Mcg Inh) 1 puff INH RQ24 [facility] Heparin Sodium (Porcine) (Heparin) 5,000 units SC Q12 [facility] Lisinopril (Zestril) 40 mg PO DAILY [facility] Metformin HCl (Glucophage) 1,000 mg PO BID [facility] Mirtazapine (Remeron) 30 mg PO HS [facility] Last Admin: 12/14/17 22:29 Dose: 30 mg Nicotine (Nicoderm Cq) 1 patch TD DAILY [facility] Last Admin: 12/14/17 15:23 Dose: 1 patch Rosuvastatin Calcium (Crestor) 10 mg PO HS [facility] Zolpidem Tartrate (Ambien) 5 mg PO HS PRN PRN Reason: Insomnia Last Admin: 12/14/17 22:29 Dose: 5 mg - Labs Labs: 12/14/17 14:55 12/14/17 14:55 PT 12.0 SECONDS (9.7-12.2) 12/14/17 14:55 INR 1.1 12/14/17 14:55 APTT 33 SECONDS (21-34) 12/14/17 14:55 - Constitutional Appears: Non-toxic, No Acute Distress - Head Exam Head Exam: ATRAUMATIC, NORMOCEPHALIC - Eye Exam Eye Exam: Normal appearance - ENT Exam ENT Exam: Mucous Membranes Moist - Neck Exam Neck Exam: absent: Lymphadenopathy - Respiratory Exam Respiratory Exam: Clear to Ausculation Bilateral, NORMAL BREATHING PATTERN. absent: Accessory Muscle Use, Chest Wall Tenderness, Rales, Rhonchi, Wheezes, Respiratory Distress - Cardiovascular Exam Cardiovascular Exam: REGULAR RHYTHM, +S1, +S2. absent: Tachycardia - GI/Abdominal Exam GI & Abdominal Exam: Soft. absent: Distended, Firm, Guarding, Rigid, Tenderness - Extremities Exam Extremities Exam: absent: Calf Tenderness, Pedal Edema - Neurological Exam Neurological Exam: Alert, Awake, Oriented x3 - Psychiatric Exam Psychiatric exam: Normal Affect, Normal Mood - Skin Skin Exam: Dry, Warm Assessment and Plan - Assessment and Plan (Free Text) Plan: Chest Pain Cardiology consulted, Dr. Lion * Stress Test today: report pending * ECHO: report pending Trops negative x4 Utox negative Uncontrolled diabetes mellitus accuchecks Hgb A1c pending ISS Continue metformin 1000mg PO BID hypoglycemic protocol COPD (chronic obstructive pulmonary disease) continue home meds: Breo Ellipta 100-25 mcg INH 1 puff daily HTN (hypertension) Continue home meds: Aspirin 325 mg PO DAILY Lisinopril 40 mg PO DAILY Rosuvastatin Calcium 5 mg PO HS Insomnia continue home meds: Zolpidem (Ambien) 5 mg PO HS prn Bipolar Disorder psych consulted on previous admission continue home meds: Lamotrigine (Lamictal) 200 mg PO BID [facility] Mirtazapine (Remeron) 30 mg PO HS [facility] xanax 2mg PO TID Tobacco dependence Nicotine patch 21mg/24hr TD daily Counseled on cessation Prophylactic Care VTE: Heparin 5,000u SC q12h SCDs GI ppx not indicated at this time All medical management as per Dr. Jaxon Hernandez Conrado PGY2
[2017-12-15 14:32] LABS: CK-MB 0.28 ng/mL (0.0-3.38)
[2017-12-15] MEDS ORDERED: Glucagon Recombinant 1 mg Inj IM PRN (14:51)
[2017-12-15] MEDS ORDERED: Dextrose 50% SYRINGE Inj (50 ml) IV PRN (14:51)
[2017-12-15] MEDS ORDERED: (Novolog) Insulin Aspart, Recombinant 100 u/ml 10 ml vial SC SCH (16:30)
[2017-12-15 17:31] VITALS: BP 109/73; RESP 20; TEMP 97.4; O2SAT 95
[2017-12-15 19:03] VITALS: PULSE 87
[2017-12-16] MEDS ORDERED: Influenza Vaccine 60 MCG/0.5 ML SYR (3 yr & up) IM ONE (12:00)
--- NOTE | 2017-12-16 19:11 | CARD ---
APPROVED REPORT Date of service: 12/15/2017 Protocol: LEXISCAN Test Type: LEXISCAN STRESS Test Indications: CHEST PAIN Target HR: 169 bpm Resting ECG: normal Resting Heart Rate: 83 bpm Resting Blood Pressure: 136/80mmHg submaximum (85%): 144 bpm TEST SUMMARY PREINFSNHYPERV.11:[id number]/80.0. INFUSIONDOSE 100:300.00.01.086/.0. [id number]/80.0. PROCEDURE Pharmacologic stress testing was performed using 0.4mg per 5ml of regadenoson given intravenously over 7-10 seconds. POST EXERCISE Reason for Termination: Protocol Completed Target HR: No Max HR: 86 bpm 68% of Maximum Predicted HR: 169 bpm Exercise duration: 00:30 min:sec, 0 Stage Exercise capacity: 1.0METs Max Blood Pressure: 136/80mmHg Blood Pressure response to exercise: normal resting BP - appropriate response Heart Rate response to exercise: appropriate Chest Pain: No, none Angina index: 0 Arrhythmia: No, none ST Change: No, none Deviation: 0 mm INTERPRETATION Stress EKG Conclusion: Nuclear test to follow EXAM: Myocardial Perfusion REST/STRESS Imaging Protocol The imaging protocol used to acquire images was Rest Tc-99m/stress Tc-99m 1 day Rest Spect myocardial perfusion imaging was performed in supine position 45 minutes following the injection of 12.9 mCi of Tc-99 Myoview. Gated Stress Spect was performed 45 minutes after intravenous 32.5 mCiTc-99 Myoview injection. The images were gated to evaluate regional wall motion and calculate ventricular ejection fraction.Images were reconstructed using backfilter projection method in short horizontal and verticle long axis. Spect slices were generated. RESTING DATA EDV82.55omAC1.20L/min1/3 Pk. Filling Rate1.43EDV/sec LV Time to Pk. Filling Thuo715.51msec ESV40.00mlMyocardial Dvhd506.00gLV Time to Pk. Ejection Rate99.87msec Pk. Fill Rate2.91EDV/secAv. Heart Rate74.00bpm EF51.00%Pk. Emptying Rate2.15ESV/sec STRESS DATA EDV86.77ztMB2.90L/min ESV36.00mlMyocardial Ybrn490.00g Pk. Fill Rate3.01EDV/sec EF58.00%Pk. Emptying Rate3.89ESV/sec 1/3 Pk. Filling Rate0.98EDV/secRegional WT score at stress:1.00 LV Time to Pk. Filling Rate:195.30msecRegional WM score at stress:0.00 LV Time to Pk. Ejection Rate:134.02msecSummed WT score at stress:1.00 Av. Heart Rate77.00bpmSummed WM score at stress:6.00 LV Perf. Quant 17 Seg. SSS0.00 17 Seg. SRS0.00 17 Seg. SDS0.00 Stress Defect Extent (% LAD)0.00Rest Defect Extent (% LAD)0.00Rev. Defect Extent (% LAD)0.00 Stress Defect Extent (% LCX)0.00Rest Defect Extent (% LCX)0.00Rev. Defect Extent (% LCX)0.00 Stress Defect Extent (% RCA)0.00Rest Defect Extent (% RCA)0.00Rev. Defect Extent (% RCA)0.00 Stress Defect Extent (% SILVIA)0.00Rest Defect Extent (% SILVIA)0.00Rev. Defect Extent (% SILVIA)0.00 Other Information Quality:Good IMPRESSION Normal Myocardial Perfusion exercise stress study Left Ventricle LV Function:Left ventricle systolic function is normal. The Ejection Fraction is >55%. Conclusion 1. Normal Lexiscal Nuclear Stress Test. Normal EF
--- NOTE | 2017-12-17 23:28 | CARD ---
APPROVED REPORT Date of service: 12/15/2017 EXAM: Two-dimensional and M-mode echocardiogram with Doppler and color Doppler. Other Information Quality : GoodRhythm : INDICATION CVA/TIA Chest pressure COPD Palpitations RISK FACTORS Hypertension Diabetes 2D DIMENSIONS IVSd1.2 (0.7-1.1cm)Aortic Root (2D)2.9 (2.0-3.7cm) LVDd4.2 (3.9-5.9cm)PWd1.0 (0.7-1.1cm) LA Atzboe84 (18-58mL)LVDs3.3 (2.5-4.0cm) FS (%) 22.2 %LVEF (%)56.0 (>50%) LVEF (Cortes's)61.19 %IVC0.00 cm M-Mode DIMENSIONS RVDd1.21 (2.1-3.2cm)Left Atrium (MM)3.07 (2.5-4.0cm) IVSd0.81 (0.7-1.1cm)Aortic Root2.79 (2.2-3.7cm) LVDd4.63 (4.0-5.6cm)Aortic Cusp Exc.1.85 (1.5-2.0cm) PWd0.74 (0.7-1.1cm)FS (%) 25 % LVDs3.46 (2.0-3.8cm)LVEF (%)55 (>50%) Mitral Valve MV E Rxzdeklz41.7cm/sMV A Jfbdhcbp15.2cm/sE/A ratio0.9 TDI Lateral E' Peak V7.45cm/sMedial E' Peak V5.84cm/sE/Lateral E'8.8 E/Medial E'11.3 LEFT VENTRICLE The left ventricle is normal size. There is normal left ventricular wall thickness. Left ventricle systolic function is normal. The Ejection Fraction is 60-65%. There is normal LV segmental wall motion. Tissue Doppler imaging reveals abnormal left ventricular diastolic dysfunction. RIGHT VENTRICLE The right ventricle is normal size. There is normal right ventricular wall thickness. The right ventricular systolic function is normal. ATRIA The left atrium size is normal. The right atrium size is normal. The interatrial septum is intact with no evidence for an atrial septal defect. AORTIC VALVE The aortic valve is normal in structure. No aortic regurgitation is present. There is no aortic valvular stenosis. There is no aortic valvular vegetation. MITRAL VALVE The mitral valve is normal in structure. There is no evidence of mitral valve prolapse. There is no mitral valve stenosis. Mitral regurgitation is mild. TRICUSPID VALVE The tricuspid valve is normal in structure. There is no tricuspid valve regurgitation noted. There is no tricuspid valve prolapse or vegetation. There is no tricuspid valve stenosis. PULMONIC VALVE The pulmonic valve is not well visualized. There is mild pulmonic valvular regurgitation. GREAT VESSELS The aortic root is normal in size. PERICARDIAL EFFUSION There is no significant pericardial effusion. <Conclusion> Left ventricle systolic function is normal. The Ejection Fraction is 60-65%. Diastolic dysfunction. No aortic regurgitation is present. Mitral regurgitation is mild. There is no tricuspid valve regurgitation noted. There is mild pulmonic valvular regurgitation.
--- NOTE | 2017-12-18 06:53 | HP ---
HISTORY OF PRESENT ILLNESS: This is a 52 year-old female with a history of diabetes, hypertension, COPD who admitted to the hospital with a chief complaint of weakness, tiredness, shortness of breath. Denies chest pain. The patient came to the ER, advised admission. PHYSICAL EXAMINATION: GENERAL: The patient is awake, alert, and oriented. VITAL SIGNS: Temperature 98, pulse 90. HEENT: Within normal limits. NECK: Supple. CHEST: Symmetrical. HEART: Regular. ABDOMEN: Soft. EXTREMITIES: No edema. IMPRESSION: Patient suffers from syndrome. The patient is to get bed rest. Supportive care. Mando Coates MD
--- NOTE | 2017-12-18 11:12 | CARD ---
APPROVED REPORT Date of service: 12/14/2017 EKG Measurement Heart [id number] <Conclusion> Normal sinus rhythm Normal ECG
== END 2017-12-15 18:53 | disposition left against medical advice (07) ==
LOC: C.ER 13:58 → C.9E 16:04 → C.6T 19:35
PROVIDERS: ADMIT Internal Medicine Pulmonary Disease; ATTEND Internal Medicine Pulmonary Disease
DX: F41.9 Anxiety disorder, unspecified (principal); E11.9 Type 2 diabetes mellitus without complications; J44.9 Chronic obstructive pulmonary disease, unspecified; I10 Essential (primary) hypertension; D50.9 Iron deficiency anemia, unspecified; F31.9 Bipolar disorder, unspecified; E78.00 Pure hypercholesterolemia, unspecified; E78.5 Hyperlipidemia, unspecified; F20.9 Schizophrenia, unspecified; Z86.73 Personal history of transient ischemic attack (TIA), and cerebral infarction without residual deficits; Z87.891 Personal history of nicotine dependence
CPT/HCPCS: 36415; 71045; 78452; 80053; 81001; 82948; 83880; 84484; 84703; 85025; 85610; 85730; 93017; 93306; 99285; A9502; G0378; G0480; J0706; J2785